=== PATIENT | female | born 2000 | race Caucasian/White ===

== ENCOUNTER 2021-04-09 07:40 | Emergency (ER) | payer MEDICAID, SELFPAY ==
--- NOTE | ~2021-04-09 | XR_ITS ---
EXAMINATION: XR finger 5th LT min 2V DATE: 04/09/2021 08:26 INDICATION: Left hand fifth digit swelling and pain. TECHNIQUE: 3 views of left hand fifth digit were obtained. COMPARISON: None. FINDINGS: There is a transverse extra-articular fracture of base of fifth distal phalanx. The distal fracture fragment demonstrates impaction and 1 mm palmar displacement. Joint spaces are normal. IMPRESSION: 1. Extra articular transverse fracture of base of fifth distal phalanx. Reviewed, dictated and finalized at location A. 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
[2021-04-09 07:55] VITALS: BP 137/82; PULSE 73; RESP 16; TEMP 37.4; O2SAT 98
--- NOTE | 2021-04-09 08:29 | ED.UPPEXIN ---
HPI - Extremity Injury (Upper) General Chief Complaint: Extremity Injury, Upper Stated Complaint: L 5TH DIGIT PAIN Time Seen by Provider: 04/09/21 08:14 Source: patient and RN notes reviewed Mode of arrival: ambulatory Limitations: no limitations History of Present Illness HPI narrative: This is a 20 year old female right hand dominant who presents for evaluation of left 5th finger pain. Patient states she fell on Friday. She noticed left shoulder pain and left 5th finger pain. Her shoulder pain has resolved but this morning her finger was throbbing so she came to ER. She has been budding taping her finger to help with pain from possible fracture. Her pain is worse with movement but she is able to move fully. She denies headache or head injury. She has not taken anything for pain. Related Data Home Medications Medication Instructions Recorded Confirmed norethindrone-e.estradiol-iron tablet 04/09/21 [Aurovela Fe 1-20 (28)] Allergies Allergy/AdvReac Type Severity Reaction Status Date / Time No Known Allergies Allergy Unverified 04/09/21 07:41 Review of Systems Review of Systems: All systems reviewed & are unremarkable except as noted in HPI and below PMFSH Past Medical History Medical History (Updated 04/09/21 @ 09:12 by Pat Diallo MD) Patient denies medical problems Surgical History Surgical History (Updated 04/09/21 @ 08:32 by Pat Diallo MD) Hx of tonsillectomy Social History Social History (Updated 04/09/21 @ 08:32 by Pat Diallo MD) Smoking status: Current every day smoker Exam Const: General: no acute distress and alert Orientation/consciousness: patient oriented x3 HENMT: Head: normocephalic and atraumatic Eyes: EOM: EOMs intact bilaterally Resp: Effort & Inspection: normal respiratory effort and no retractions Auscultation: clear to auscultation bilaterally Cardio: Rate: regular rate Rhythm: regular rhythm Heart sounds: no murmurs GI: GI Palp: Yes Soft to palpation, No Tenderness to palpation present (GI) and No Guarding due to palpation present (GI) Auscultation: normal bowel sounds Extrem: Other: FROM of fingers and shoulder. left 5th finger with mild swelling and bruising Psych: Mental Status: mental status grossly normal Affect: normal affect Course Reevaluation(s) Reevaluation #1: I Discussed with patient she has distal phalanx fracture. She was placed in metal finger splint. Date: 04/09/21 Time: 09:09 Vital Signs Vital signs: Vital Signs Temperature 99.3 F 04/09/21 07:55 Pulse Rate 73 04/09/21 07:55 Respiratory Rate 16 04/09/21 07:55 Blood Pressure 137/82 04/09/21 07:55 Pulse Oximetry 98 04/09/21 07:55 Temperature 99.3 F 04/09/21 07:55 Pulse Rate 73 04/09/21 07:55 Respiratory Rate 16 04/09/21 07:55 Blood Pressure 137/82 04/09/21 07:55 Pulse Oximetry 98 04/09/21 07:55 MDM - Extremity Injury (Upper) Imaging Data Radiologist's impression: ITS Impressions Finger X-Ray 04/09/21 08:29 IMPRESSION: 1. Extra articular transverse fracture of base of fifth distal phalanx. Discharge Plan Discharge Clinical Impression: Closed fracture of distal phalanx of left index finger Qualifiers: Encounter type: initial encounter Fracture alignment: displaced Qualified Code(s): S62.631A - Displaced fracture of distal phalanx of left index finger, initial encounter for closed fracture Patient Disposition: Home, Self-Care Condition: Stable Instructions: Antibiotic Form, Finger Fracture (ED), Splint Care (ED) Additional Instructions: Today you were found to have finger fracture. Where finger splint and follow up with your primary care physician in 2 weeks. Prescriptions: No Action norethindrone-e.estradiol-iron [Aurovela Fe 1-20 (28)] 1 mg-20 mcg (21)/75 mg (7) tablet RF: 0 Follow-up/Referrals: Wally Alfaro MD [Physician] - UNKNOWN,DOCTOR [Prim
[2021-04-09] MEDS: IBUPROFEN 600 MG TABLET PO (08:39)
== END 2021-04-09 09:23 | disposition home or self-care (01) ==
PROVIDERS: Emergency Provider General Practice
DX: S62.631A Displaced fracture of distal phalanx of left index finger, initial encounter for closed fracture (principal); F17.200 Nicotine dependence, unspecified, uncomplicated; W19.XXXA Unspecified fall, initial encounter
CPT/HCPCS: 29125; 73140; 99284; A9270

== ENCOUNTER 2022-03-13 16:31 | Emergency (ER) | payer BC, SELFPAY ==
--- NOTE | ~2022-03-13 | CT_ITS ---
EXAMINATION: CT abdomen pelvis w con DATE: 03/13/2022 18:06 INDICATION: upper abd pain, RUQ pain TECHNIQUE: Computed tomography (CT) of the abdomen and pelvis was performed with 100 mL Omnipaque-350 intravenous contrast. Automated exposure control and iterative reconstruction technique were employe d. The dose-length product was 225.67 mGy-cm. COMPARISON: None. FINDINGS: Lower thorax: Unremarkable Liver: Normal. Biliary/Gallbladder: Gallbladder is normal. No bile duct dilation. Pancreas: No mass or duct dilation. Spleen: Normal. Adrenals:No mass. Kidneys: No mass, stone, or hydronephrosis. GI tract: Distal esophageal and antral wall edema. No small or large bowel dilation. Appendix incompl etely visualized, visualized portions are normal, no right lower quadrant inflammatory change. Mesentery/Peritoneum: No ascites, mass, or free air. Retroperitoneum: No mass. Pelvis: Mild bladder wall thickening, otherwise the pelvic organs are within normal limits. Multiple pelvic phleboliths. Distal ureters incompletely visualized. No definite calcification in the expected pathway of the distal ureters. Soft Tissues: Soft tissues and body wall unremarkable. Bones: No acute osseous finding. IMPRESSION: Esophagitis/gastritis. Bladder wall thickening as can be seen with cystitis in the appropriate clinic al context. Reviewed, dictated and finalized at location K. IMPRESSION: Esophagitis/gastritis. Bladder wall thickening as can be seen with cystitis in the appropriate clinical context.
[2022-03-13 16:34] VITALS: BP 142/81; PULSE 97; RESP 20; TEMP 36.6; O2SAT 100
[2022-03-13 17:14] LABS: Basophils Absolute Auto 0.1 K/mm3 (0.0-0.1); Basophils Percent Auto 0.8 % (0.2-1.2); Eosinophils Absolute Auto 0.1 K/mm3 (0-0.3); Eosinophils Percent Auto 0.8 % (0-4.4); Hematocrit 38.1 % (37.0-47.0); Hemoglobin 12.8 g/dL (12.0-15.0); Immature Granulocyte Absolute 0.03 K/mm3 (0.00-0.031); Immature Granulocyte Percent A 0.3 % (0-0.5); Lymphocytes Absolute Auto 1.78 K/mm3 (0.9-3.2); Lymphocytes Percent Auto 19.6 % (18.3-44.2); Mean Corpuscular HGB Conc 33.6 g/dl (32-36); Mean Corpuscular Volume 98.2 fl (80-100); Mean Platelet Volume 10.5 fl (7.4-10.4); Monocytes Absolute Auto 0.9 K/mm3 (0.1-0.6); Monocytes Percent Auto 9.7 % (2.6-8.5); Neutrophils Absolute Auto 6.3 K/mm3 (1.3-6.7); Neutrophils Percent Auto 68.8 % (45.5-73.1); Platelet Count Result 226 k/mm3 (150-375); Red Blood Count 3.88 M/mm3 (4.2-5.4); Red Cell Distribution Width 12.1 % (11.5-14.5); White Blood Count 9.1 K/mm3 (4.5-10.0)
[2022-03-13 17:28] LABS: Alanine Aminotransferase 17 U/L (6-35); Albumin Level 4.5 g/dL (3.5-5.1); Alkaline Phosphatase 54 U/L (38-126); Anion Gap 7 mmol/L (8-16); Aspartate Amino Transferase 27 U/L (14-36); Bilirubin,Total 0.3 mg/dL (0.2-1.3); Blood Urea Nitrogen 9 mg/dL (7-17); Calcium 9.3 mg/dL (8.4-10.2); Carbon Dioxide 26 mmol/L (22-30); Chloride 103 mmol/L (98-107); Estimated CRCL calculation 93 ml/min; Estimated Glomerular Filt Rate > 60; Glucose 91 mg/dL (65-110); Lipase 42 U/L (23-300); Sodium 136 mmol/L (137-145)
--- NOTE | 2022-03-13 17:29 | ED.ABDPAIN ---
HPI - Abdominal Pain General Chief Complaint: Abdominal Pain Stated Complaint: abd pain Time Seen by Provider: 03/13/22 16:51 History of Present Illness HPI narrative: 21-year-old female presents emergency room for evaluation of sudden onset of upper abdominal pain. Patient states this morning she woke up with upper abdominal pain that radiated into her back. Patient describes the pain as a squeezing sensation. Denies nausea, vomiting diarrhea or constipation. Patient states she took Pepto this morning and her symptoms have resolved. States this afternoon her symptoms returned. Reports social alcohol use. Reports last menstrual period was 4 weeks ago. No concerns over or STIs. Denies dysuria. Denies fevers. Related Data Home Medications Medication Instructions Recorded Confirmed quetiapine 50 mg tablet 50 mg PO QHS 11/05/21 11/05/21 Allergies Allergy/AdvReac Type Severity Reaction Status Date / Time No Known Allergies Allergy Unverified 03/13/22 17:43 Review of Systems Review of Systems: CONSTITUTIONAL: Denies fever, chills, or sweats. EYES: Denies visual changes, redness, or discharge. ENT: Denies rhinorrhea, congestion, sore throat, or otalgia. CARDIOVASCULAR: Denies chest pain, palpitations, or edema. RESPIRATORY: Denies cough or dyspnea. GASTROINTESTINAL: Reports abdominal pain, denies nausea, vomiting, or diarrhea. GENITOURINARY: Denies dysuria or hematuria. SKIN: Denies rash or itching. MUSCULOSKELETAL: Denies back pain, joint pain, or myalgia. NEUROLOGIC: Denies headache, numbness, dizziness, or weakness. PSYCHIATRIC: Denies anxiety or depression. 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 HEAD: Normocephalic, atraumatic. EYES: Conjunctivae normal, PERRLA and EOMI. CHEST: Clear to auscultation. No respiratory distress. No wheezes rales or rhonchi. No tenderness. HEART: Regular rate and rhythm. No murmur heard. Normal peripheral pulses. ABDOMEN: Soft, upper abdominal and periumbilical tenderness nondistended, normal active bowel sounds. BACK: No CVA tenderness EXTREMITIES: Normal range of motion. No edema. No clubbing or cyanosis SKIN: Warm, dry, no rash. No noted wounds NEURO: No focal deficits. Alert and oriented x3. MAEW. CN's II-XI intact bilaterally, normal gait PSYCH: Cooperative. Normal mood and affect. Course Vital Signs Vital signs: Vital Signs Temperature 36.6 C 03/13/22 16:34 Pulse Rate 97 03/13/22 16:34 Respiratory Rate 20 03/13/22 16:34 Blood Pressure 142/81 H 03/13/22 16:34 Pulse Oximetry 100 03/13/22 16:34 Oxygen Delivery Room Air 03/13/22 16:34 Temperature 36.6 C 03/13/22 16:34 Pulse Rate 97 03/13/22 16:34 Respiratory Rate 20 03/13/22 16:34 Blood Pressure 142/81 H 03/13/22 16:34 Pulse Oximetry 100 03/13/22 16:34 Oxygen Delivery Room Air 03/13/22 16:34 MDM - Abdominal Pain Lab Data Result diagrams: 03/13/22 17:09 03/13/22 17:09 Labs: Lab Results 03/13/22 03/13/2203/02
[2022-03-13] MEDS: SODIUM CHLORIDE 0.9% IV 1,000 ML 999 ML IV CONT (17:50)
[2022-03-13] MEDS: DICYCLOMINE HCL INJ 20 MG/2 ML VIAL IM (17:50)
[2022-03-13 18:01] LABS: Add Urine Microscopic? YES; Appearance Urine Cloudy (Clear); Bacteria Urine Trace /hpf; Bilirubin Urine Negative (Negative); Blood Urine 1+ (Negative); Color Urine Yellow (Yellow); Glucose Urine UA Negative (Negative); Ketones Urine Negative (Negative); Leukocyte Esterase Ur 3+ LEU/UL (Negative); Mucus Urine Rare /lpf; Nitrate Urine Negative (Negative); Protein Urine Negative (Negative); Specific Grav Ur 1.012 (1.001-1.035); Squamous Epithelial Cell Urine Many /hpf (Few); Urobilinogen Urine Negative mg/dL (<2.0)
[2022-03-13 18:45] VITALS: BP 125/75; PULSE 80; RESP 14; O2SAT 99
[2022-03-13] MEDS: BELLADONNA ALK/PHENOB ELIX 10 ML, MAG HYDROX/ALUMINUM HYD/SIMETH 30 ML, LIDOCAINE HCL 2... PO (18:58)
== END 2022-03-13 18:45 | disposition home or self-care (01) ==
PROVIDERS: General Practice; Emergency Provider Nurse Practitioner Family
DX: K29.70 Gastritis, unspecified, without bleeding (principal); F31.9 Bipolar disorder, unspecified; F17.290 Nicotine dependence, other tobacco product, uncomplicated; R93.41 Abnormal radiologic findings on diagnostic imaging of renal pelvis, ureter, or bladder
CPT/HCPCS: 36415; 74177; 80053; 81001; 81025; 83690; 85025; 87086; 87088; 96360; 96372; 99284; A9270; J0500; J7030; Q9967

== ENCOUNTER 2022-04-19 14:23 | Emergency (ER) | payer BC, SELFPAY ==
[2022-04-19 14:39] VITALS: BP 128/79; PULSE 88; RESP 24; TEMP 36.9; O2SAT 100
--- NOTE | 2022-04-19 15:33 | ED.WOUNDLAC ---
HPI - Wound/Laceration General Chief Complaint: Wound/Laceration Stated Complaint: Cut Rt Hand Time Seen by Provider: 04/19/22 15:34 Source: patient Mode of arrival: ambulatory Limitations: no limitations History of Present Illness HPI narrative: 22 year female presents for complaint of laceration to right hand (2nd MCP). Injury occurred 5 days ago while carving a pumpkin using a pocket knife after drinking alcohol. She cleansed the site and applied liquid Band-Aid. She has continued to apply liquid Band-Aid over the last few days. She endorses decreased range of motion over the knuckle today and mild redness and swelling. Related Data Home Medications Medication Instructions Recorded Confirmed norethindrone 1 mg-ethinyl 1 tablet PO DAILY 04/19/22 04/19/22 estradiol 20 mcg (21)-iron 75 mg (7) tablet (Blisovi Fe 06/21 (28)) quetiapine 100 mg tablet 100 mg PO HS 04/19/22 04/19/22 Allergies Allergy/AdvReac Type Severity Reaction Status Date / Time No Known Allergies Allergy Verified 04/19/22 15:32 Review of Systems Review of Systems: CONSTITUTIONAL: Denies body aches, fever, chills, or sweats. CARDIOVASCULAR: Denies chest pain, palpitations, or edema. RESPIRATORY: Denies cough or dyspnea. SKIN: per HPI MUSCULOSKELETAL: Denies back pain, joint pain, or myalgia. NEUROLOGIC: Denies headache, numbness, tingling, or weakness. 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 Please see nursing chart for further information. There is no relevant family history pertinent to the presenting complaint Exam Narrative: GENERAL: Well-appearing ENT: Mucous membranes moist. Oropharynx without edema, erythema or lesions. NECK: Supple. No lymphadenopathy CHEST: Clear to auscultation. HEART: Regular rate and rhythm. SKIN: Warm, dry. Right hand 2nd MCP with approx 1.5 cm linear healing laceration with mild surrounding erythema and mild swelling. Decreased ROM at MCP, unable to close fist. Nontender, no active drainage, induration or fluctuance NEURO: Alert and oriented x3. Course Course Emergency Course: Patient is aware of diagnosis, understands and agrees to treatment plan. Anticipatory guidance given. Patient agrees to follow-up as directed and is aware of reasons to seek care at the emergency department. Portions of this record may have been created with voice recognition software Level of Care: Express Care Visit Vital Signs Vital signs: Vital Signs Temperature 98.5 F 04/19/22 14:39 Pulse Rate 88 04/19/22 14:39 Respiratory Rate 24 H 04/19/22 14:39 Blood Pressure 128/79 04/19/22 14:39 Pulse Oximetry 100 04/19/22 14:39 Oxygen Delivery Room Air 04/19/22 14:39 Temperature 98.5 F 04/19/22 14:39 Pulse Rate 88 04/19/22 14:39 Respiratory Rate 24 H 04/19/22 14:39 Blood Pressure 128/79 04/19/22 14:39 Pulse Oximetry 100 04/19/22 14:39 Oxygen Delivery Room Air 04/19/22 14:39 Reviewed MDM - Wound/Laceration
== END 2022-04-19 15:47 | disposition home or self-care (01) ==
PROVIDERS: Emergency Provider Nurse Practitioner Family; PCP Family Medicine
DX: S61.411A Laceration without foreign body of right hand, initial encounter (principal); W26.0XXA Contact with knife, initial encounter; F17.290 Nicotine dependence, other tobacco product, uncomplicated; F12.90 Cannabis use, unspecified, uncomplicated; F31.9 Bipolar disorder, unspecified
CPT/HCPCS: 99213; G0463

== ENCOUNTER 2024-10-18 15:36 | Outpatient (RCR) | payer BC, SELFPAY ==
[2024-10-18 16:00] VITALS: BP 113/57; PULSE 84
[2024-10-18 16:15] VITALS: BP 110/57; PULSE 76
[2024-10-18 16:16] VITALS: BP 113/57; PULSE 85
== END 2025-01-16 23:59 | disposition home or self-care (01) ==
LOC: ANHOBOP 15:36
PROVIDERS: PCP Family Medicine; Visit Provider Obstetrics & Gynecology
DX: O36.8930 Maternal care for other specified fetal problems, third trimester, not applicable or unspecified (principal); Z3A.27 27 weeks gestation of pregnancy
CPT/HCPCS: 59025

== ENCOUNTER 2024-11-17 10:45 | Observation (INO) | payer SELFPAY ==
[2024-11-17] VITALS (122 sets, daily range): BP systolic 111–122; BP diastolic 63–78; PULSE 82–130; RESP 18–20; TEMP 36.9–37.2; O2SAT 89–100; BMI 25.7
--- NOTE | ~2024-11-17 | US_ITS ---
EXAM EXAMINATION: US OB limited DATE: 11/17/2024 18:34 CDT INDICATION: Placenta/cervix check COMPARISON: 07/02/2024 and 06/01/2024 TECHNIQUE: Real-time transabdominal obstetric ultrasound. FINDINGS: There is a single intrauterine gestation in vertex presentation. The placenta is anterior The cervix measures 2.37 cm in length on the submitted images. cardiac activity and movement is noted with a heart rate of 146 beats per minute. Prominent vasculature is seen in cross-section, on transverse view of the anterior placenta. IMPRESSION: Single intrauterine gestation in vertex presentation with cardiac activity identified. The cervix measures 2.37 cm in length. Reviewed, dictated and finalized at location A. IMPRESSION: Single intrauterine gestation in vertex presentation with cardiac activit y identified. The cervix measures 2.37 cm in length.
--- NOTE | 2024-11-17 11:40 | PM.OBTRLD ---
OB - Triage/Final Diagnosis Visit Information Date of evaluation: 11/17/24 Reason for evaluation: threatened labor Comments/Additional reasons for admission: I have assessed the risk for this patient, Tati Hong, and determined that she would benefit from observation care. Evaluation Vital signs: Vital Signs - 24 hr 11/17/24 11:09 11/17/24 11:10 11/17/24 11:14 Pulse Rate 88 Blood Pressure 121/66 Pulse Oximetry 99 100 11/17/24 11:15 11/17/24 11:19 11/17/24 11:24 Pulse Rate 96 Blood Pressure 118/78 Pulse Oximetry 100 100 11/17/24 11:29 11/17/24 11:30 11/17/24 11:34 Pulse Rate 84 Blood Pressure 115/63 Pulse Oximetry 98 98 11/17/24 11:39 Pulse Rate Blood Pressure Pulse Oximetry 100
[2024-11-17] MEDS: TERBUTALINE SULFATE 1 MG/ML VIAL 0.25 MG SUB-Q ×3 (11:49→19:22)
--- OUTSIDE RECORDS SUMMARY | 2024-11-17 12:39 | XMS_ITS | Clinical Summary ---
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 Gender Identity Not on file Sexual Orientation Not on file Plan of Treatment Health Maintenance Due Date Last Done Comments Cervical Cancer Screening 1998 Depression Screening 1998 Hepatitis C Screening 1998 Regular Well Visit/Exam 18-64 2016 HPV Vaccines (2 - 3-dose series) 11/05/2021 10/08/2021 Covid-19 Vaccine ( season) 2024 06/18/2021, 09/24/2020, 09/02/2020 Influenza Vaccine (Season Ended) 2025 02/27/2022, 06/18/2021, 04/03/2020 DTaP/Tdap/Td Vaccine (7 - Td or Tdap) 10/09/2031 10/08/2021, 12/20/2003, 03/12/2000, Additional history exists Hepatitis B Screening Completed 07/31/1999 , 07/31/1999, 1998, Additional history exists Varicella Vaccines Completed 10/08/2021, 07/31/1999 Pneumococcal vaccine <65 Aged Out No longer eligible based on patient's age to complete this topic Care Teams Baling Press Operator Relationship Specialty Start Date End Date Socrates Burgess MD [address] [place] [address] PCP - General Family Medicine 10/01/22
--- OUTSIDE RECORDS SUMMARY | 2024-11-17 12:39 | XMS_ITS | Data Portability ---
Author Organization [place] - [facility] [employer], Main Office Address [address] [place] [address] Care Team Providers [employer] Program Director Name Role Phone LILIAM SOCRATES Primary Care Provider Assessment Encounter Date Assessment Date Assessment LastModified by Organization Details LastModified Time 09/10/2022 09/10/2022 22 yo F with - WELL ADULT VISIT - BIPOLAR DEPRESSION - MOOD DISORDER - VAPING - H/O ANXIETY (Around 12 yrs of age) Annual labs: 10/03/21. Annual labs: 04/03/20. D/w pt in detail about her findings, recent labs and further plan of care. Will do routine labs. Pt declined for cxr. Meds as directed. Diet and exercise explained in detail. Safe sex education given. Currently vaping about 1-2 pods per day. Explained about different options to quit. Cont f/u with Psych at [facility] as per schedule. Cont f/u with Gyne at [place] as per schedule. HM: WWE - 11/21, normal as per pt. Cont f/u with Gyne as per schedule. Flu - 02/27/22. Tdap, Gardasil - At . F/u in 2-3 weeks. Annual labs in 09/23. [email or web address] Not available 09/10/2022 11:48:36 10/01/2022 10/01/2022 22 yo F with - BIPOLAR DEPRESSION - MOOD DISORDER - VAPING - H/O ANXIETY (Around 12 yrs of age) Annual labs: 09/24/22. Annual labs: 10/03/21. Annual labs: 04/03/20. D/w pt in detail about her findings, recent labs and further plan of care. Meds as directed. Diet and exercise explained in detail. Safe sex education given. Currently vaping about 1-2 pods per day. Explained about different options to quit. Cont f/u with Psych at [facility] as per schedule. Cont f/u with Gyne at [place] as per schedule. HM: WWE - 11/21, normal as per pt. Cont f/u with Gyne as per schedule. Flu - 02/27/22. Tdap, Gardasil - At HD. F/u in 3-6 months. Annual labs in 09/23. [email or web address] Not available 10/01/2022 11:40:27 Plan of Treatment Reminders Order Date Submit Date Provider Last Modified By Organization Details Last Modified Time Details Appointments None recorded. Lab vitamin D, 25-hydroxy, total, serum [address] (Lab), [address] [place], [address], 3 09:01:39 CBC w/ auto diff 2022 023 [facility] (Lab), [address] [place], [address], 3 20:15:42 CMP, serum or plasma 2022 023 [facility] (Lab), [address] [place], [address], 3 20:58:06 lipid panel, serum 2022 023 [facility] (Lab), [address] [place], [address], 3 12:51:27 TSH, serum, reflex free T4 [address] (Lab), [address] [place], [address], 3 09:00:28 urinalysis complete, reflex culture [address] (Lab), [address] [place], [address], 3 09:00:50 Referral None recorded. Procedures None recorded. Surgeries None recorded. Imaging None recorded. Medication Orders None recorded. Patient TargetsNo targets recorded. Patient InstructionsNo instructions recorded. Reason for Referral None Reported. Results Created Date Observation Date Name Description Value Unit Range Abnormal Flag Note LastModifiedBy Organization Detail LastModifiedTime 10/04/19 22 10/03/2021 TSH W/REF RUBA FT4 TSH with reflex free T4 1.290 uIU/m L 0.465- 4.680 Not Available [facility] (Lab) [address] [place], [address], 10/03/2021 20:29:34 10/04/19 22 10/03/2021 VITAM IN D 25-HY DROXY vd25oh 35.2 NG/mL 30-100 Vitam in D Statu s: Defic ient: <20 ng/mL Insuf ficie nt: 20-29 ng/mL Suffi cient : 30-10 0 ng/mL Not Available [facility] (Lab) [address] [place], [address], 10/03/2021 20:22:22 10/04/19 22 10/03/2021 URINA LYSIS COMPL ETE/I RIS W/RFX color yellow Not Available [facility] (Lab) [address] [place], [address], 10/03/2021 20:05:18 10/04/19 22 10/03/2021 URINA LYSIS COMPL ETE/I RIS W/RFX appear clear Not Available [facility] (Lab) [address] [place], [address], 10/03/2021 20:05:18 10/04/19 22 10/03/2021 URINA LYSIS COMPL ETE/I RIS W/RFX specific gravity 1.021 1.001- 1.030 Not Available [facility] (Lab) [address] [place], [address], 10/03/2021 20:05:18 10/04/19 22 10/03/2021 URINA LYSIS COMPL ETE/I RIS W/RFX pH 7.0 pH_un its 5.0-9. 0 Not Available [facility] (Lab) [address] [place], [address], 10/03/2021 20:05:18 10/04/19 22 10/03/2021 URINA LYSIS COMPL ETE/I RIS W/RFX leukocytes negati ve jennifer/u L negati ve- Not Available [facility] (Lab) [address] [place], [address], 10/03/2021 20:05:18 10/04/19 22 10/03/2021 URINA LYSIS COMPL ETE/I RIS W/RFX nitrite negati ve negati ve- Not Available [facility] (Lab) [address] [place], [address], 10/03/2021 20:05:18 10/04/19 22 10/03/2021 URINA LYSIS COMPL ETE/I RIS W/RFX protein 20 mg/dL negati ve- abnormal Not Available [facility] (Lab) [address] [place], [address], 10/03/2021 20:05:18 10/04/19 22 10/03/2021 URINA LYSIS COMPL ETE/I RIS W/RFX glucose normal mg/dL normal - Not Available [facility] (Lab) [address] [place], [address], 10/03/2021 20:05:18 10/04/19 22 10/03/2021 URINA LYSIS COMPL ETE/I RIS W/RFX ketones negati ve mg/dL negati ve- Not Available [facility] (Lab) [address] [place], [address], 10/03/2021 20:05:18 05/04/20 22 10/03/2021 URINA LYSIS COMPL ETE/I RIS W/RFX urobilinogen normal mg/dL normal - Not Available [facility] (Lab) [address] [place], [address], 10/03/2021 20:05:18 10/04/19 22 10/03/2021 URINA LYSIS COMPL ETE/I RIS W/RFX bilirubin negati ve mg/dL negati ve- Not Available [facility] (Lab) [address] [place], [address], 10/03/2021 20:05:18 10/04/19 22 10/03/2021 URINA LYSIS COMPL ETE/I RIS W/RFX blood negati ve mg/dL negati ve- Not Available [facility] (Lab) [address] [place], [address], 10/03/2021 20:05:18 10/04/19 22 10/03/2021 URINA LYSIS COMPL ETE/I RIS W/RFX white blood cells 0-8 /i??h pfi?? 0-8 Not Available [facility] (Lab) [address] [place], [address], 10/03/2021 20:05:18 10/04/19 22 10/03/2021 URINA LYSIS COMPL ETE/I RIS W/RFX red blood cells 0-4 /i??h pfi?? 0-4 Not Available [facility] (Lab) [address] [place], [address], 10/03/2021 20:05:18 10/04/19 22 10/03/2021 URINA LYSIS COMPL ETE/I RIS W/RFX bacteria none Not Available [facility] (Lab) [address] [place], [address], 10/03/2021 20:05:18 10/04/19 22 10/03/2021 URINA LYSIS COMPL ETE/I RIS W/RFX mucous few /i??l pfi?? abnormal Not Available [facility] (Lab) [address] [place], [address], 10/03/2021 20:05:18 10/04/19 22 10/03/2021 URINA LYSIS COMPL ETE/I RIS W/RFX squamous epithelial packed field /i??l pfi?? abnormal Not Available [facility] (Lab) [address] [place], [address], 10/03/2021 20:05:18 10/04/19 22 10/03/2021 URINA LYSIS COMPL ETE/I RIS W/RFX renal epithelial occasi onal /i??l pfi?? abnormal Not Available [facility] (Lab) [address] [place], [address], 10/03/2021 20:05:18 10/04/19 22 10/03/2021 LIPID PANEL cholesterol 194 mg/dL 140-19 9 NIH JORGE NSUS RECOM MENDA TION FOR MEAGAN STERO L: ADULT CHILD LOW RISK: <200 <170 BORDE RLINE : <200- 239 ----- HIGH RISK: >240 >200 Not Available [facility] (Lab) [address] [place], [address], 10/03/2021 19:57:48 10/04/19 22 10/03/2021 LIPID PANEL triglyceride s 77 mg/dL 0-150 NIH JORGE NSUS REPOR T RECOM MENDA TION FOR TRIGL YCERI EMMANUEL: ADULT CHILD LOW RISK: <150 ----- BODER LINE: 150-1 99 ----- HIGH RISK: >200 ----- Not Available [facility] (Lab) [address] [place], [address], 10/03/2021 19:57:48 10/04/19 22 10/03/2021 LIPID PANEL HDL cholesterol 77 mg/dL 40- Not Available [facility] (Lab) [address] [facility] [place], [address], 10/03/2021 19:57:48 10/04/19 22 10/03/2021 LIPID PANEL LDL cholesterol, calculated 102 mg/dL 0-130 NIH JORGE NSUS REPOR T RECOM MENDA TIONS FOR LDL: ADULT CHILD LOW RISK <130 <110 (OPTI MAL LDL) <100 ----- BORDE RLINE : 130-1 59 ----- HIGH RISK: >160 >130 A TRIGL YCERI DE RESUL T >400 INVAL IDATE S THE CALCU LATIO N FOR LDL FRACT IONAT ION - THE LDL RESUL T WILL NOT BE REPOR MARY CARMEN. Not Available [facility] (Lab) [address] [place], [address], 10/03/2021 19:57:48 10/04/19 22 10/03/2021 COMPR EHENS NOVA METAB OLIC PANEL sodium 138 mmol/ L 137-14 5 Not Available [facility] (Lab) [address] [place], [address], 10/03/2021 19:57:42 10/04/19 22 10/03/2021 COMPR EHENS NOVA METAB OLIC PANEL potassium 4.2 mmol/ L 3.5-5. 1 Not Available [facility] (Lab) [address] [place], [address], 10/03/2021 19:57:42 10/04/19 22 10/03/2021 COMPR EHENS NOVA METAB OLIC PANEL chloride 104 mmol/ L 98-107 Not Available [facility] (Lab) [address] [place], [address], 10/03/2021 19:57:42 10/04/19 22 10/03/2021 COMPR EHENS NOVA METAB OLIC PANEL carbon dioxide 28 mmol/ L 22-30 Not Available [facility] (Lab) [address] [place], [address], 10/03/2021 19:57:42 10/04/19 22 10/03/2021 COMPR EHENS NOVA METAB OLIC PANEL anion gap 10.2 mmol/ L 14-22 low Not Available [facility] (Lab) [address] [place], [address], 10/03/2021 19:57:42 10/04/19 22 10/03/2021 COMPR EHENS NOVA METAB OLIC PANEL glucose 83 mg/dL 70-99 Not Available [facility] (Lab) [address] [place], [address], 10/03/2021 19:57:42 10/04/19 22 10/03/2021 COMPR EHENS NOVA METAB OLIC PANEL BUN 10 mg/dL 8-19 Not Available [facility] (Lab) [address] [place], [address], 10/03/2021 19:57:42 10/04/19 22 10/03/2021 COMPR EHENS NOVA METAB OLIC PANEL creatinine 0.68 mg/dL 0.66-1 .25 Not Available [facility] (Lab) [address] [place], [address], 10/03/2021 19:57:42 10/04/19 22 10/03/2021 COMPR EHENS NOVA METAB OLIC PANEL GFR >60 Refer ence Range : [place] GFR Healt hy Adult : >60 mL/mi n/1.7 3 m2 Chron ic Kidne y Disea se: 15-60 mL/mi n/1.7 3 m2 Kidne y Failu re: <15/m L/min /1.73 m2 www.n iddk. nih.g ov The MDRD study equat ion has not been valid ated in child perla <18 years of age; pregn ant women ; the elder ly >85 years of age; or in some racia l or ethni c subgr oups, such as Hispa nics. Outsi de the valid ated zelda eters , estim ated GFR is less accur ate, requi ring clini kimberly judgm ent on a case- by-ca se basis . Clini kimberly inter preta tion for other races and ages must be made by the clini spencer. The MDRD study equat ion has not been valid ated for the evalu ation of serum creat inine relat ed to nutri francia l statu s or medic ation usage . For perso ns <18 years of age, a pedia tric GFR calcu lator is avail able on the [facility] websi te: https ://ww w.kid artur.o rg/pr ofess ional s/kdo qi/gf r_cal culat or Not Available [facility] (Lab) [address] [place], [address], 10/03/2021 19:57:42 10/04/19 22 10/03/2021 COMPR EHENS NOVA METAB OLIC PANEL alkaline phosphatase 63 U/L 38-126 Not Available [facility] (Lab) [address] [place], [address], 10/03/2021 19:57:42 10/04/19 22 10/03/2021 COMPR EHENS NOVA METAB OLIC PANEL alanine aminotransfe rase 16 U/L 0-35 Not Available [facility] (Lab) [address] [place], [address], 10/03/2021 19:57:42 10/04/19 22 10/03/2021 COMPR EHENS NOVA METAB OLIC PANEL aspartate aminotransfe rase 25 U/L 15-37 Not Available [facility] (Lab) [address] [place], [address], 10/03/2021 19:57:42 10/04/19 22 10/03/2021 COMPR EHENS NOVA METAB OLIC PANEL bilirubin, total 0.40 mg/dL 0.20-1 .30 Not Available [facility] (Lab) [address] [place], [address], 10/03/2021 19:57:42 10/04/19 22 10/03/2021 COMPR EHENS NOVA METAB OLIC PANEL calcium 9.7 mg/dL 8.4-10 .2 Not Available [facility] (Lab) [address] [place], [address], 10/03/2021 19:57:42 10/04/19 22 10/03/2021 COMPR EHENS NOVA METAB OLIC PANEL total protein 7.8 g/dL 6.3-8. 2 Not Available [facility] (Lab) [address] [place], [address], 10/03/2021 19:57:42 10/04/19 22 10/03/2021 COMPR EHENS NOVA METAB OLIC PANEL albumin 4.4 g/dL 3.4-5. 0 Not Available [facility] (Lab) [address] [place], [address], 10/03/2021 19:57:42 10/04/19 22 10/03/2021 COMPR EHENS NOVA METAB OLIC PANEL globulin 3.4 g/dL 2.6-4. 2 Not Available [facility] (Lab) [address] [place], [address], 10/03/2021 19:57:42 10/04/19 22 10/03/2021 COMPR EHENS NOVA METAB OLIC PANEL A/G ratio 1.3 ratio 1.0-2. 0 Not Available [facility] (Lab) [address] [place], [address], 10/03/2021 19:57:42 10/04/19 22 10/03/2021 CBC/C OMPLE TE BLD COUNT W/DIF F white blood cells 6.3 x10'3 /uL 4.2-10 .8 Not Available [facility] (Lab) [address] [place], [address], 10/03/2021 19:46:40 10/04/19 22 10/03/2021 CBC/C OMPLE TE BLD COUNT W/DIF F red blood cells 4.09 x10'6 /uL 3.80-5 .20 Not Available [facility] (Lab) [address] [place], [address], 10/03/2021 19:46:40 10/04/19 22 10/03/2021 CBC/C OMPLE TE BLD COUNT W/DIF F hemoglobin 13.4 g/dL 12.0-1 5.6 Not Available [facility] (Lab) [address] [place], [address], 10/03/2021 19:46:40 10/04/19 22 10/03/2021 CBC/C OMPLE TE BLD COUNT W/DIF F hematocrit 40.4 % 35.7-4 5.7 Not Available [facility] (Lab) [address] [place], [address], 10/03/2021 19:46:40 10/04/19 22 10/03/2021 CBC/C OMPLE TE BLD COUNT W/DIF F mean red cell volume 98.8 fL 82.0-9 9.0 Not Available [facility] (Lab) [address] [place], [address], 10/03/2021 19:46:40 10/04/19 22 10/03/2021 CBC/C OMPLE TE BLD COUNT W/DIF F mean red cell hemoglobin 32.8 pg 27.0-3 3.0 Not Available [facility] (Lab) [address] [place], [address], 10/03/2021 19:46:40 10/04/19 22 10/03/2021 CBC/C OMPLE TE BLD COUNT W/DIF F mean RBC HGB concentratio n 33.2 g/dL 31.0-3 6.0 Not Available [facility] (Lab) [address] [place], [address], 10/03/2021 19:46:40 10/04/19 22 10/03/2021 CBC/C OMPLE TE BLD COUNT W/DIF F red cell distribution width 12.1 % 11.8-1 5.5 Not Available [facility] (Lab) [address] [place], [address], 10/03/2021 19:46:40 10/04/19 22 10/03/2021 CBC/C OMPLE TE BLD COUNT W/DIF F platelets 229 x10'3 /uL 150-40 0 Not Available [facility] (Lab) [address] [place], [address], 10/03/2021 19:46:40 10/04/19 22 10/03/2021 CBC/C OMPLE TE BLD COUNT W/DIF F mean platelet volume 11.5 fL 9.0-12 .4 Not Available [facility] (Lab) [address] [place], [address], 10/03/2021 19:46:40 10/04/19 22 10/03/2021 CBC/C OMPLE TE BLD COUNT W/DIF F neutrophils 61.5 % 39.0-7 2.0 Not Available [facility] (Lab) [address] [place], [address], 10/03/2021 19:46:40 10/04/19 22 10/03/2021 CBC/C OMPLE TE BLD COUNT W/DIF F lymphocytes 26.8 % 16.0-4 7.0 Not Available [facility] (Lab) [address] [place], [address], 10/03/2021 19:46:40 10/04/19 22 10/03/2021 CBC/C OMPLE TE BLD COUNT W/DIF F monocytes 9.1 % 5.0-12 .0 Not Available [facility] (Lab) [address] [place], [address], 10/03/2021 19:46:40 10/04/19 22 10/03/2021 CBC/C OMPLE TE BLD COUNT W/DIF F eosinophils 1.6 % 1.0-7. 0 Not Available [facility] (Lab) [address] [place], [address], 10/03/2021 19:46:40 10/04/19 22 10/03/2021 CBC/C OMPLE TE BLD COUNT W/DIF F basophils 0.8 % 0.0-2. 0 Not Available [facility] (Lab) [address] [place], [address], 10/03/2021 19:46:40 10/04/19 22 10/03/2021 CBC/C OMPLE TE BLD COUNT W/DIF F immature granulocytes 0.2 % 0.00-0 .50 Not Available [facility] (Lab) [address] [place], [address], 10/03/2021 19:46:40 10/04/19 22 10/03/2021 CBC/C OMPLE TE BLD COUNT W/DIF F neutrophils, absolute count 3.87 x10'3 /uL 1.5-8. 0 Not Available [facility] (Lab) [address] [place], [address], 10/03/2021 19:46:40 10/04/19 22 10/03/2021 CBC/C OMPLE TE BLD COUNT W/DIF F lymphocytes, absolute count 1.68 x10'3 /uL 1.07-3 .43 Not Available [facility] (Lab) [address] [place], [address], 10/03/2021 19:46:40 10/04/19 22 10/03/2021 CBC/C OMPLE TE BLD COUNT W/DIF F monocytes, absolute count 0.57 x10'3 /uL 0.29-0 .99 Not Available [facility] (Lab) [address] [place], [address], 10/03/2021 19:46:40 10/04/19 22 10/03/2021 CBC/C OMPLE TE BLD COUNT W/DIF F eosinophils, absolute count 0.10 x10'3 /uL 0.02-0 .53 Not Available [facility] (Lab) [address] [place], [address], 10/03/2021 19:46:40 10/04/19 22 10/03/2021 CBC/C OMPLE TE BLD COUNT W/DIF F basophils, absolute count 0.05 x10'3 /uL 0.01-0 .08 Not Available [facility] (Lab) [address] [place], [address], 10/03/2021 19:46:40 10/04/19 22 10/03/2021 CBC/C OMPLE TE BLD COUNT W/DIF F immature granulocytes ,absolute 0.01 x10'3 /uL 0.00-0 .05 Not Available [facility] (Lab) [address] [place], [address], 10/03/2021 19:46:40 10/04/19 22 10/03/2021 CBC/C OMPLE TE BLD COUNT W/DIF F nucleated red blood cells 0.0 % -0 Not Available [facility] (Lab) [address] [place], [address], 10/03/2021 19:46:40 10/04/19 22 10/03/2021 CBC/C OMPLE TE BLD COUNT W/DIF F NRBC# 0.00 x10'3 /uL Not Available [facility] (Lab) [address] [place], [address], 10/03/2021 19:46:40 09/25/19 23 09/24/2022 CBC/C OMPLE TE BLD COUNT W/DIF F white blood cells 6.5 x10'3 /uL 4.2-10 .8 Not Available [facility] (Lab) [address] [place], [address], 09/24/2022 20:15:42 09/25/19 23 09/24/2022 CBC/C OMPLE TE BLD COUNT W/DIF F red blood cells 4.05 x10'6 /uL 3.80-5 .20 Not Available [facility] (Lab) [address] [place], [address], 09/24/2022 20:15:42 09/25/19 23 09/24/2022 CBC/C OMPLE TE BLD COUNT W/DIF F hemoglobin 13.2 g/dL 12.0-1 5.6 Not Available [facility] (Lab) [address] [place], [address], 09/24/2022 20:15:42 09/25/19 23 09/24/2022 CBC/C OMPLE TE BLD COUNT W/DIF F hematocrit 39.9 % 35.7-4 5.7 Not Available [facility] (Lab) [address] [place], [address], 09/24/2022 20:15:42 09/25/19 23 09/24/2022 CBC/C OMPLE TE BLD COUNT W/DIF F mean red cell volume 98.5 fL 82.0-9 9.0 Not Available [facility] (Lab) [address] [place], [address], 09/24/2022 20:15:42 09/25/19 23 09/24/2022 CBC/C OMPLE TE BLD COUNT W/DIF F mean red cell hemoglobin 32.6 pg 27.0-3 3.0 Not Available [facility] (Lab) [address] [place], [address], 09/24/2022 20:15:42 09/25/19 23 09/24/2022 CBC/C OMPLE TE BLD COUNT W/DIF F mean RBC HGB concentratio n 33.1 g/dL 31.0-3 6.0 Not Available [facility] (Lab) [address] [facility] [place], [address], 09/24/2022 20:15:42 09/25/19 23 09/24/2022 CBC/C OMPLE TE BLD COUNT W/DIF F red cell distribution width 11.9 % 11.8-1 5.5 Not Available [facility] (Lab) [address] [place], [address], 09/24/2022 20:15:42 09/25/19 23 09/24/2022 CBC/C OMPLE TE BLD COUNT W/DIF F platelets 219 x10'3 /uL 150-40 0 Not Available [facility] (Lab) [address] [place], [address], 09/24/2022 20:15:42 09/25/19 23 09/24/2022 CBC/C OMPLE TE BLD COUNT W/DIF F mean platelet volume 11.8 fL 9.0-12 .4 Not Available [facility] (Lab) [address] [place], [address], 09/24/2022 20:15:42 09/25/19 23 09/24/2022 CBC/C OMPLE TE BLD COUNT W/DIF F neutrophils 53.1 % 39.0-7 2.0 Not Available [facility] (Lab) [address] [place], [address], 09/24/2022 20:15:42 09/25/19 23 09/24/2022 CBC/C OMPLE TE BLD COUNT W/DIF F lymphocytes 32.5 % 16.0-4 7.0 Not Available [facility] (Lab) [address] [place], [address], 09/24/2022 20:15:42 09/25/19 23 09/24/2022 CBC/C OMPLE TE BLD COUNT W/DIF F monocytes 10.9 % 5.0-12 .0 Not Available [facility] (Lab) [address] [place], [address], 09/24/2022 20:15:42 09/25/19 23 09/24/2022 CBC/C OMPLE TE BLD COUNT W/DIF F eosinophils 2.3 % 1.0-7. 0 Not Available [facility] (Lab) [address] [place], [address], 09/24/2022 20:15:42 09/25/19 23 09/24/2022 CBC/C OMPLE TE BLD COUNT W/DIF F basophils 0.9 % 0.0-2. 0 Not Available [facility] (Lab) [address] [place], [address], 09/24/2022 20:15:42 09/25/19 23 09/24/2022 CBC/C OMPLE TE BLD COUNT W/DIF F immature granulocytes 0.3 % 0.00-0 .50 Not Available [facility] (Lab) [address] [place], [address], 09/24/2022 20:15:42 09/25/19 23 09/24/2022 CBC/C OMPLE TE BLD COUNT W/DIF F neutrophils, absolute count 3.47 x10'3 /uL 1.5-8. 0 Not Available [facility] (Lab) [address] [place], [address], 09/24/2022 20:15:42 09/25/19 23 09/24/2022 CBC/C OMPLE TE BLD COUNT W/DIF F lymphocytes, absolute count 2.12 x10'3 /uL 1.07-3 .43 Not Available [facility] (Lab) [address] [place], [address], 09/24/2022 20:15:42 09/25/19 23 09/24/2022 CBC/C OMPLE TE BLD COUNT W/DIF F monocytes, absolute count 0.71 x10'3 /uL 0.29-0 .99 Not Available [facility] (Lab) [address] [place], [address], 09/24/2022 20:15:42 09/25/19 23 09/24/2022 CBC/C OMPLE TE BLD COUNT W/DIF F eosinophils, absolute count 0.15 x10'3 /uL 0.02-0 .53 Not Available [facility] (Lab) [address] [place], [address], 09/24/2022 20:15:42 09/25/19 23 09/24/2022 CBC/C OMPLE TE BLD COUNT W/DIF F basophils, absolute count 0.06 x10'3 /uL 0.01-0 .08 Not Available [facility] (Lab) [address] [place], [address], 09/24/2022 20:15:42 09/25/19 23 09/24/2022 CBC/C OMPLE TE BLD COUNT W/DIF F immature granulocytes ,absolute 0.02 x10'3 /uL 0.00-0 .05 Not Available [facility] (Lab) [address] [place], [address], 09/24/2022 20:15:42 09/25/19 23 09/24/2022 CBC/C OMPLE TE BLD COUNT W/DIF F nucleated red blood cells 0.0 % -0 Not Available [facility] (Lab) [address] [place], [address], 09/24/2022 20:15:42 09/25/19 23 09/24/2022 CBC/C OMPLE TE BLD COUNT W/DIF F NRBC# 0.00 x10'3 /uL Not Available [facility] (Lab) [address] [facility] [place], [address], 09/24/2022 20:15:42 09/25/19 23 09/24/2022 COMPR EHENS NOVA METAB OLIC PANEL sodium 137 mmol/ L 137-14 5 Not Available [facility] (Lab) [address] [place], [address], 09/24/2022 20:58:05 09/25/19 23 09/24/2022 COMPR EHENS NOVA METAB OLIC PANEL potassium 3.9 mmol/ L 3.5-5. 1 Not Available [facility] (Lab) [address] [place], [address], 09/24/2022 20:58:05 09/25/19 23 09/24/2022 COMPR EHENS NOVA METAB OLIC PANEL chloride 105 mmol/ L 98-107 Not Available [facility] (Lab) [address] [place], [address], 09/24/2022 20:58:05 09/25/19 23 09/24/2022 COMPR EHENS NOVA METAB OLIC PANEL carbon dioxide 24 mmol/ L 22-30 Not Available [facility] (Lab) [address] [place], [address], 09/24/2022 20:58:05 09/25/19 23 09/24/2022 COMPR EHENS NOVA METAB OLIC PANEL anion gap 11.9 mmol/ L 14-22 low Not Available [facility] (Lab) [address] [place], [address], 09/24/2022 20:58:05 09/25/19 23 09/24/2022 COMPR EHENS NOVA METAB OLIC PANEL glucose 90 mg/dL 70-99 Not Available [facility] (Lab) [address] [place], [address], 09/24/2022 20:58:05 09/25/19 23 09/24/2022 COMPR EHENS NOVA METAB OLIC PANEL BUN 10 mg/dL 8-19 Not Available [facility] (Lab) [address] [place], [address], 09/24/2022 20:58:05 09/25/19 23 09/24/2022 COMPR EHENS NOVA METAB OLIC PANEL creatinine 0.68 mg/dL 0.66-1 .25 Not Available [facility] (Lab) [address] [place], [address], 09/24/2022 20:58:05 09/25/19 23 09/24/2022 COMPR EHENS NOVA METAB OLIC PANEL GFR >60 Refer ence Range : [place] GFR Healt hy Adult : >60 mL/mi n/1.7 3 m2 Chron ic Kidne y Disea se: 15-60 mL/mi n/1.7 3 m2 Kidne y Failu re: <15/m L/min /1.73 m2 [email or web address] ov The MDRD study equat ion has not been valid ated in child perla <18 years of age; pregn ant women ; the elder ly >85 years of age; or in some racia l or ethni c subgr oups, such as ri nics. Outsi de the valid ated zelda eters , estim ated GFR is less accur ate, requi ring clini kimberly judgm ent on a case- by-ca se basis . Clini kimberly inter preta tion for other races and ages must be made by the clini spencer. The MDRD study equat ion has not been valid ated for the evalu ation of serum creat inine relat ed to nutri francia l statu s or medic ation usage . For perso ns <18 years of age, a pedia tric GFR calcu lator is avail able on the NKF websi te: https ://citlalli w.stephanie siddiqui.o rg/pr amandeepess ional s/kdo qi/gf r_cal culat or Not Available [facility] (Lab) [address] [place], [address], 09/24/2022 20:58:05 09/25/19 23 09/24/2022 COMPR EHENS NOVA METAB OLIC PANEL alkaline phosphatase 52 U/L 38-126 Not Available [facility] (Lab) [address] [place], [address], 09/24/2022 20:58:05 09/25/19 23 09/24/2022 COMPR EHENS NOVA METAB OLIC PANEL alanine aminotransfe rase 17 U/L 0-35 Not Available [facility] (Lab) [address] [place], [address], 09/24/2022 20:58:05 09/25/19 23 09/24/2022 COMPR EHENS NOVA METAB OLIC PANEL aspartate aminotransfe rase 23 U/L 15-37 Not Available [facility] (Lab) [address] [place], [address], 09/24/2022 20:58:05 09/25/19 23 09/24/2022 COMPR EHENS NOVA METAB OLIC PANEL bilirubin, total 0.50 mg/dL 0.20-1 .30 Not Available [facility] (Lab) [address] [place], [address], 09/24/2022 20:58:05 09/25/19 23 09/24/2022 COMPR EHENS NOVA METAB OLIC PANEL calcium 9.4 mg/dL 8.4-10 .2 Not Available [facility] (Lab) [address] [place], [address], 09/24/2022 20:58:05 09/25/19 23 09/24/2022 COMPR EHENS NOVA METAB OLIC PANEL total protein 7.5 g/dL 6.3-8. 2 Not Available [facility] (Lab) [address] [place], [address], 09/24/2022 20:58:05 09/25/19 23 09/24/2022 COMPR EHENS NOVA METAB OLIC PANEL albumin 4.5 g/dL 3.4-5. 0 Not Available [facility] (Lab) [address] [place], [address], 09/24/2022 20:58:05 09/25/19 23 09/24/2022 COMPR EHENS NOVA METAB OLIC PANEL globulin 3.0 g/dL 2.6-4. 2 Not Available [facility] (Lab) [address] [place], [address], 09/24/2022 20:58:05 09/25/19 23 09/24/2022 COMPR EHENS NOVA METAB OLIC PANEL A/G ratio 1.5 ratio 1.0-2. 0 Not Available [facility] (Lab) [address] [place], [address], 09/24/2022 20:58:05 09/25/19 23 09/24/2022 VITAM IN D 25-HY DROXY vd25oh 38.3 NG/mL 30-100 Vitam in D Statu s: Defic ient: <20 ng/mL Insuf ficie nt: 20-29 ng/mL Suffi cient : 30-10 0 ng/mL Not Available [facility] (Lab) [address] [place], [address], 09/24/2022 21:20:31 09/25/1909/24/2022 TSH W/REF RUBA FT4 TSH with reflex free T4 1.530 uIU/m L 0.465- 4.680 Not Available [facility] (Lab) [address] [place], [address], 09/24/2022 21:22:45 09/25/19 23 09/24/2022 URINA LYSIS COMPL ETE/I RIS W/RFX color YELLOW Not Available [facility] (Lab) [address] [place], [address], 09/24/2022 21:25:58 09/25/19 23 09/24/2022 URINA LYSIS COMPL ETE/I RIS W/RFX appear TURBID abnormal Not Available [facility] (Lab) [address] [place], [address], 09/24/2022 21:25:58 09/25/19 23 09/24/2022 URINA LYSIS COMPL ETE/I RIS W/RFX specific gravity 1.020 1.001- 1.030 Not Available [facility] (Lab) [address] [place], [address], 09/24/2022 21:25:58 09/25/19 23 09/24/2022 URINA LYSIS COMPL ETE/I RIS W/RFX pH 7.0 pH_un its 5.0-9. 0 Not Available [facility] (Lab) [address] [place], [address], 09/24/2022 21:25:58 09/25/19 23 09/24/2022 URINA LYSIS COMPL ETE/I RIS W/RFX leukocytes NEGATI VE jennifer/u L negati ve- Not Available [facility] (Lab) [address] [place], [address], 09/24/2022 21:25:58 09/25/19 23 09/24/2022 URINA LYSIS COMPL ETE/I RIS W/RFX nitrite NEGATI VE negati ve- Not Available [facility] (Lab) [address] [place], [address], 09/24/2022 21:25:58 09/25/19 23 09/24/2022 URINA LYSIS COMPL ETE/I RIS W/RFX protein NEGATI VE mg/dL negati ve- Not Available [facility] (Lab) [address] [place], [address], 09/24/2022 21:25:58 09/25/19 23 09/24/2022 URINA LYSIS COMPL ETE/I RIS W/RFX glucose NORMAL mg/dL normal - Not Available [facility] (Lab) [address] [place], [address], 09/24/2022 21:25:58 09/25/19 23 09/24/2022 URINA LYSIS COMPL ETE/I RIS W/RFX ketones NEGATI VE mg/dL negati ve- Not Available [facility] (Lab) [address] [place], [address], 09/24/2022 21:25:58 09/25/19 23 09/24/2022 URINA LYSIS COMPL ETE/I RIS W/RFX urobilinogen NORMAL mg/dL normal - Not Available [facility] (Lab) [address] [place], [address], 09/24/2022 21:25:58 09/25/19 23 09/24/2022 URINA LYSIS COMPL ETE/I RIS W/RFX bilirubin NEGATI VE mg/dL negati ve- Not Available [facility] (Lab) [address] [place], [address], 09/24/2022 21:25:58 09/25/19 23 09/24/2022 URINA LYSIS COMPL ETE/I RIS W/RFX blood NEGATI VE mg/dL negati ve- Not Available [facility] (Lab) [address] [place], [address], 09/24/2022 21:25:58 09/25/19 23 09/24/2022 URINA LYSIS COMPL ETE/I RIS W/RFX white blood cells 0-8 /i??h pfi?? 0-8 Not Available [facility] (Lab) [address] [place], [address], 09/24/2022 21:25:58 09/25/19 23 09/24/2022 URINA LYSIS COMPL ETE/I RIS W/RFX red blood cells 0-4 /i??h pfi?? 0-4 Not Available [facility] (Lab) [address] [place], [address], 09/24/2022 21:25:58 09/25/19 23 09/24/2022 URINA LYSIS COMPL ETE/I RIS W/RFX bacteria NONE Not Available [facility] (Lab) [address] [place], [address], 09/24/2022 21:25:58 09/25/19 23 09/24/2022 URINA LYSIS COMPL ETE/I RIS W/RFX mucous OCCASI ONAL /i??l pfi?? abnormal Not Available [facility] (Lab) [address] [place], [address], 09/24/2022 21:25:58 09/25/19 23 09/24/2022 URINA LYSIS COMPL ETE/I RIS W/RFX squamous epithelial MANY /i??l pfi?? abnormal Not Available [facility] (Lab) [address] [place], [address], 09/24/2022 21:25:58 09/25/19 23 09/24/2022 URINA LYSIS COMPL ETE/I RIS W/RFX budding yeast PACKED FIELD /i??h pfi?? abnormal Not Available [facility] (Lab) [address] [place], [address], 09/24/2022 21:25:58 Result Notes None recorded. Problems Name Problem SNOMED Code Status Onset Date Resolution Date Notes Provider Name and Address Organization Details Recorded Time Impacted cerumen of bilateral ears 7133041449174 108 Active 2019 Not Available [facility] 3 22:23:24 Bipolar disorder 63809950 Active 2021 Not Available [facility] 3 22:23:24 History of anxiety state 079847512 Active 2019 Not Available [facility] 3 22:23:24 Mood disorder 45496750 Active 2021 Not Available [facility] 3 22:23:24 Vaping Active 2022 Socrates Burgess MD [address], [address], [place], [address] , [facility] [employer] [facility] 3 11:39:56 Problem Notes None recorded. Procedures Surgical History Date Name Laterality Status Provider Name and Address Organization Details Recorded Time 3 Smoking Cessation completed Socrates Burgess MD [address], [address], [place], [address], [employer] [facility] [employer] 09/10/2022 11:35:20 Imaging Results None recorded. Procedure Notes None recorded. Medical Equipment None Reported. Allergies No known drug allergies Medications Name Sig Start Date Stop Date Status Note LastModified by Organization Details LastModified Time medroxypro gesterone 10 mg tablet TAKE 1 TABLET BY MOUTH EVERY NIGHT FOR ACUTE OPIOID THERAPY DAYS IF PERIOD DOES NOT START ON ITS OWN 08/29 completed Not Available Not Available Not Available ibuprofen 800 mg tablet TAKE 1 TABLET BY MOUTH EVERY 8 HOURS WITH FOOD NEEDED 02/27 completed Not Available Not Available Not Available prednisone 20 mg tablet TAKE 2 TABLETS BY MOUTH EVERY DAY FOR 5 DAYS 08/29 completed Not Available Not Available Not Available Debrox 6.5 % ear drops INSTILL 4 DROPS INTO AFFECTED EAR(S) BY OTIC ROUTE 2 TIMES PER DAY 08/29 completed Start using 5 days before next appoint ment. Not Available Not Available Not Available quetiapine 100 mg tablet TAKE 1 TABLET BY MOUTH AT BEDTIME DIRECTED active Not Available Not Available No t Available amoxicilli n 875 mg tablet TAKE 1 TABLET BY MOUTH EVERY 12 HOURS FOR 10 DAYS 02/27 completed Not Available Not Available Not Available cephalexin 500 mg capsule TAKE 1 CAPSULE BY MOUTH EVERY 12 HOURS FOR 5 DAYS 09/10 completed Not Available Not Available Not Available azithromyc in 500 mg tablet TK 2 TS PO PRN FOR 1 DAY 08/29 completed Not Available Not Available Not Available nitrofuran toin monohydrat e/macrocry stals 100 mg capsule TAKE 1 CAPSULE BY MOUTH EVERY 12 HOURS FOR 5 DAYS 09/10 completed Not Available Not Available Not Available quetiapine 50 mg tablet TAKE 1 TABLET BY MOUTH EVERY DAY AT BEDTIME 02/27 completed Not Available Not Available Not Available Blisovi Fe 06/21 (28) 1 mg-20 mcg (21)/75 mg (7) tablet TAKE 1 TABLET BY MOUTH DAILY active Not Available Not Available No t Available Vitals Date Recorded Body height Body mass index (BMI) Body weight Body temperature Heart rate Oxygen saturation Oxygen saturation in Arterial blood by Pulse oximetry Respiratory rate Systolic blood pressure Diastolic blood pressure Provider Name and Address Organization Details Last Updated DateTime 3 172.72 cm 22.2 kg/m2 03435.4 9 g 97.8 [degF] 94 /min 98 % 98 % 16 /min 122 mm[Hg] 74 mm[Hg] Layne Hartman RN [facility] [employer] [facility] 3 11:38:13 Date Recorded Body height Body mass index (BMI) Body weight Body temperature Heart rate Respiratory rate Systolic blood pressure Diastolic blood pressure Provider Name and Address Organization Details Last Updated DateTime 3 172.72 cm 22.2 kg/m2 99409.4 9 g 98 [degF] 88 /min 16 /min 120 mm[Hg] 78 mm[Hg] Layne Hartman RN [facility] [employer] [facility] 3 11:35:17 Date Recorded Body mass index (BMI) Body height Oxygen saturation Oxygen saturation in Arterial blood by Pulse oximetry Heart rate Respiratory rate Body temperature Body weight Systolic blood pressure Diastolic blood pressure Provider Name and Address Organization Details Last Updated DateTime 2 20.2 kg/m2 172.72 cm 99 % 99 % 88 /min 16 /min 98.2 [degF] 12041.1 4 g 118 mm[Hg] 80 mm[Hg] Not Available [facility] 3 22:23:11 Date Recorded Body mass index (BMI) Body height Oxygen saturation Oxygen saturation in Arterial blood by Pulse oximetry Heart rate Respiratory rate Body temperature Body weight Systolic blood pressure Diastolic blood pressure Provider Name and Address Organization Details Last Updated DateTime 2 22 kg/m2 172.72 cm 99 % 99 % 78 /min 18 /min 98.7 [degF] 58944.8 9 g 120 mm[Hg] 72 mm[Hg] Not Available [facility] 22:23:11 Social History Question Answer Notes LastModified by Organizat ion Details LastModified Time Tobacco Smoking Status Never Smoker Not Available [facility] 07/31/2022 22:22:43 Do You Have An Advance Directive? Yes [id number] Information not available 07/31/2022 Do You Wear A Helmet When Biking? Yes MIGRATION.[id number] 026 Information not available 07/31/2022 What Is Your Level Of Caffeine Consumption? Heavy MIGRATION.9159414 026 Information not available 07/31/2022 In The 14 Days Before Symptom Onset, Have You Had Close Contact With A Laboratory-confirm ed COVID-19 While That Case Was Ill? No MIGRATION.[id number] 026 Information not available 07/31/2022 In The 14 Days Before Symptom Onset, Have You Had Close Contact With A Person Who Is Under Investigation For COVID-19 While That Person Was Ill? No MIGRATION.0621241 026 Information not available 07/31/2022 What Type Of Diet Are You Following? REGULAR MIGRATION.0788491 026 Information not available 07/31/2022 What Is The Highest Grade Or Level Of School You Have Completed Or The Highest Degree You Have Received? [id number] MIGRATION.8895694 026 Information not available 07/31/2022 Have There Been Any Changes To Your Family Or Social Situation? No MIGRATION.[id number] 026 Information not available 07/31/2022 What Is The Fluoride Status Of Your Home? Unknown MIGRATION.[id number] 026 Information not available 07/31/2022 Are There Any Guns Present In Your Home? No MIGRATION.6505283 026 Information not available 07/31/2022 Do You Use Insect Repellent Routinely? Yes MIGRATION.[id number] 026 Information not available 07/31/2022 Where Do You Live? [place] MIGRATION .[id number] 026 Information not available 07/31/2022 Do You Have A Medical Power Of Kiln Transfer Operator? Yes MIGRATION.0332073 026 Information not available 07/31/2022 Have You Ever Been Counseled For Unhealthy Alcohol Use? No MIGRATION.6558057 026 Information not available 07/31/2022 Do You Have Any Pets? Yes MIGRATION.7644095 026 Information not available 07/31/2022 What Is Your Relationship Status? Single MIGRATION.7116042 026 Information not available 07/31/2022 Do You Use Your Seat Belt Or Car Seat Routinely? Yes MIGRATION.0242014 026 Information not available 07/31/2022 Do You Have Smoke And Carbon Monoxide Detectors In Your Home? Yes MIGRATION.0716635 026 Information not available 07/31/2022 Are You Passively Exposed To Smoke? No MIGRATION.0198305 026 Information not available 07/31/2022 Are There Any Smokers In Your House? No MIGRATION.3374495 026 Information not available 07/31/2022 Do You Participate In Social [employer]? Yes MIGRATION.6374312 026 Information not available 07/31/2022 Do You Use Sunscreen Routinely? Yes MIGRATION.7077441 026 Information not available 07/31/2022 Has Tobacco Cessation Counseling Been Provided? Yes MIGRATION.3187567 026 Information not available 07/31/2022 Have You Recently Traveled Abroad? No MIGRATION.6111316 026 Information not available 07/31/2022 Are You Currently In School? Yes MIGRATION.7305137 026 Information not available 07/31/2022 Do You Have Any Dietary Restrictions? No MIGRATION.1722236 026 Information not available 07/31/2022 How Many Years Have You Used E-cigarettes Or Vape? 5 MIGRATION.2675139 026 Information not available 07/31/2022 Sex: Female Functional Status Question Answer Note LastModified by Organizat ion Details LastModified Time Do you use any illicit or recreational drugs? No MIGRATION.089480 9703 Information not available 07/31/2022 Do you or have you ever used any other forms of tobacco or nicotine? Yes MIGRATION.376152 4041 Information not available 07/31/2022 What is your level of alcohol consumption? Occasional MIGRATION.143716 4671 Information not available 07/31/2022 Do you or have you ever used smokeless tobacco? 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 Current user of electronic cigarettes MIGRATION.855079 3468 Information not available 07/31/2022 What is your exercise level? Heavy MIGRATION.046619 6977 Information not available 07/31/2022 Mental Status Question Answer Note LastModified by Organizat ion Details LastModified Time Do you feel stressed (tense, restless, nervous, or anxious, or unable to sleep at night)? [id number] MIGRATION.[id number] 6 Information not available 07/31/2022 Family History Relationship Description Onset Age of this Age Resolved Age Notes LastModified by Organization Details LastModified Time Paternal Grandmother Family history of malignant neoplasm MIGRATION.[id number] Not available 07/31/2022 22:23:01 Maternal Grandmother Family history of malignant neoplasm MIGRATION.[id number] Not available 07/31/2022 22:23:01 Medical History Condition Response BLINDNESS N RHEUMATIC FEVER N KIDNEY STONES N BLADDER PROBLEMS N MRSA N OTHER # 1 N POLIO N LUNG DISEASE/DISORDER N HISTORY OF DRUG ABUSE N RADIATION / CHEMOTHERAPY N COPD N Other # 2 N BLOOD DISEASES N SURGERY N EAR OR HEARING PROBLEMS N MUMPS N SHINGLES N BOWEL PROBLEMS N FEMALE PROBLEMS / INFECTIONS N DEPRESSION (INCLUDING POST ) N STROKE/TIA N THYROID DISEASE N ULCERS N BENIGN PROSTATIC HYPERPLASIA N MEASLES N CERVICALGIA N HYPOTENSION N TB SKIN TEST N MYOCARDIAL INFARCTION N PARAPELGIA N OBESITY N GERD/NAUSEA N ANEURYSM N URINARY/BLADDER/KIDNEY PROBLEMS N CORONARY ARTERY DISEASE (CAD) N MENIERE'S DISEASE N ADDICTION CONCERNS N ENDOMETRIOSIS N USE OF BLOOD THINNERS N SKIN PROBLEMS N EMPHYSEMA N GASTROINTESTINAL DISORDER N MUSCLE,JOINT OR BONE PROBLEMS N GASTROINTESTINAL BLEEDING N BLOOD CLOTS N ASTHMA N CATARACTS N ERECTILE DYSFUNCTION N GI PROBLEMS N CHF N Low Testosterone N NEUROPATHY N INFERTILITY N AIDS/HIV N FRACTURES N CHEMOTHERAPY / RADIATION N VISION/EYE PROBLEMS N LIVER DISEASE N MALE HYPOGONADISM N HYPERTENSION N TOURETTE'S N ANXIETY DISORDER N BLOOD TRANSFUSION N ANEMIA/BLOOD DISORDER N CHRONIC EAR INFECTIONS N BRONCHITIS N TUBERCULOSIS N GLAUCOMA N FOOT PROBLEM N DIVERTICULITIS N CHICKENPOX N SLEEP APNEA N ALLERGIES/HAYFEVER N INFECTIOUS DISEASE N HEART ARRHYTHMIA N PROSTATE N INSOMNIA N HIGH CHOLESTEROL / HYPERLIPIDEMIA N HYPERTHYROIDISM N EYE PROBLEMS N EATING DISORDER N EDEMA N CHRONIC PAIN SYNDROME N CONSTIPATION N CAROTID BLOCKAGE N BACK / NECK PROBLEMS N HAVE YOU BEEN HOSPITALIZED OR SEEN IN [facility] IN THE PAST YEAR ? N ATHEROSCLEROSIS N BREAST PROBLEMS N DIALYSIS N ECZEMA N FIBROMYALGIA N OSTEOPOROSIS N ARTHRITIS N NO SIGNIFICANT PAST MEDICAL HISTORY N APPENDICITIS N DIABETES, TYPE N BAD TEETH N HEARTBURN / REFLUX N ADD/ADHD N AUTISM SPECTRUM DISORDER (ASD) N HEPATITIS / LIVER DISEASE N PULMONARY DISEASE N GOUT N SLEEP DISORDER N ALZHEIMER'S DISEASE N PAIN N HERPES N DEMENTIA N HEADACHES/MIGRAINES N SEIZURES/EPILEPSY N VASCULAR DISEASE N PACEMAKER N DIZZINESS N HEART DISEASE/HEART PROBLEMS N KIDNEY DISEASE N DEVELOPMENTAL OR BEHAVIORAL DISORDERS N MULTIPLE SCLEROSIS N SCARLET FEVER N MENTAL DISORDER/ILLNESS N CARDIAC ARRHYTHMIA N CANCER: SPECIFY N PNEUMONIA N ATRIAL FIBRILLATION N Gall Stones N PULMONARY EMBOLISM N AUTOIMMUNE DISEASE N Gynecological History Statement/Question Response Flow Light Date of LMP 08/20/2021 Sexually Active? Y Weight gain N Dislike of Light during Menstrual Headac he N Menses Monthly N STIs/STDs N Breast Problems none Discharge none Obstetrics History GPAL:G 0 P 0 0 0 0 Immunizations Vaccine Type Date Status Note Provider Nam e and Address Organization Details Recorded Time Influenza, split virus, quadrivalent, PF 02/27/2022 completed Not Available [facility] 3 22:24:11 Influenza, split virus, quadrivalent, PF 04/03/2020 completed Not Available [facility] 3 22:24:11 Past Encounters Encounter ID Performer Location Encounter Start Date Encounter Closed Date Diagnosis/Indication Diagnosis SNOMED-CT Code Diagnosis ICD10 Code Diagnosis Note [id number] Socrates Burgess MD [address] [address] 08/29/2021 00:00:00 08/29/2021 12:28:19 [id number] Socrates Burgess MD [address] [address] 10/03/2021 00:00:00 10/03/2021 12:30:12 [id number] Socrates Burgess MD [address] [address] 11/01/2021 00:00:00 11/01/2021 09:21:46 [id number] Socrates Burgess MD [address] [address] 02/27/2022 00:00:00 02/27/2022 16:07:51 [id number] Ericka Chester NP [address] [address] 09/24/2021 00:00:00 09/24/2021 17:15:40 [id number] Ericka Chester NP [facility] [address] [address] 10/22/2021 00:00:00 10/22/2021 11:13:27 [id number] Ericka Chester NP [facility] [address] [address] 11/19/2021 00:00:00 11/19/2021 10:55:01 [id number] Ericka Chester NP [facility] [address] [address] 01/15/2022 00:00:00 01/15/2022 11:28:16 [id number] Ericka Chester NP [facility] [address] [address] 02/28/2022 00:00:00 02/28/2022 18:37:43 [id number] Ericka Chester NP [facility] [address] [address] 05/01/2022 00:00:00 05/01/2022 11:51:17 [id number] Ericka Chester NP [facility] [address] [address] 08/20/2022 12:08:09 08/20/2022 15:30:41 [id number] Socrates Burgess MD S_G [address] [address] 09/10/2022 11:30:50 09/10/2022 11:50:41 Adult health examination 404361585 Z00.00 Vaping 473609057 Z77.29 Bipolar disorder 5988201 4 F31.9 Screening for disorder 189155884 Z13.9 [id number] Socrates Burgess MD [facility] [address] 09/24/2022 10:25:36 09/24/2022 10:44:25 [id number] MD ALEX Perrin_SAIRA [address] [address] 10/01/2022 11:26:57 10/01/2022 11:42:24 Vaping 182341306 Z77.29 Bipolar disorder 2826864 4 F31.9 History of anxiety state 426696166 F41.9 [id number] Ericka Chester NP [facility] [address] [facility] [place], [address] [address] 11/28/2022 10:57:12 11/28/2022 12:26:12 [id number] Ericka Chester NP [facility] [address] [address] 03/06/2023 15:57:06 03/06/2023 17:41:01 Health Concerns Section Related Observation LastModified by Organization Detai ls LastModified Time None Recorded Concern Status LastModified by Organization Details LastModified Time None Recorded Advance Directives Directive Y: Payers Insurance Date Sequence Insurance Name Policy Number Policy Malcolm Covered Member ID Malcolm Member ID Guarantor Name 07/24/2024 1 [facility] (MEDICAID REPLACEMENT - HMO) [id number] Tati Hong [id number] Tati Hong Notes Date Note Type Note Provider Name and Address Organization Details Recorded Time 09/10/2022 text/html Pt is here for her annual exam. Doing overall well. Denies any concerns.Pt is f/u with Psych for her mood and she is on Seroquel by them and is doing much better now. 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 PMH, and SH reviewed. Socrates Burgess MD [address] [facility] [place], [address], [place], [address], [facility] [employer] [facility] 09/10/2022 11:49:42 10/01/2022 text/html Pt is here for f/u on her annual labs. Doing overall well. Denies any concerns.Pt is f/u with Psych for her mood and she is on Seroquel by them and is doing much better now. 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 Socrates Burgess MD [address] [facility] [address], [place], [address], [employer] 10/01/2022 11:40:37 OBGyn Episode No OBEpisode recorded.
--- OUTSIDE RECORDS SUMMARY | 2024-11-17 12:39 | XMS_ITS | Data Portability ---
Author Organization [facility] [place] Address [address] [place] [address] [place] [address] Care Team Providers Care Porcelain Buildup Assistant Name Role Phone LILIAM MUSA Primary Care Provider Assessment Encounter Date Assessment Date Assessment LastModified by Organization Details LastModified Time 06/04/2024 06/04/2024 Patient is ___weeks . Discussed plan. Not available 06/04/2024 12:06:50 Plan of Treatment Reminders Order Date Submit Date Provider Last Modified By Organization Details Last Modified Time Details Appointments None recorded. Lab drug screen, urine 2024 025 [place], [address], [address], [place], [address], 5 11:09:53 test, urine 2023 024 [email or web address] [place] [address], [address], [place], [address], 4 16:42:20 Referral None recorded. Procedures None recorded. Surgeries None recorded. Imaging US, obstetric, nuchal translucenc y 2024 025 [email or web address] [place], [facility] [address], [place], [address], 5 08:27:19 US, obstetric, 1st trimester 2024 025 [email or web address] [place], [address], [address], [place], [address], 23:27:28 Medication Orders None recorded. Patient TargetsNo targets recorded. Patient InstructionsNo instructions recorded. Reason for Referral None Reported. Results Created Date Observation Date Name Description Value Unit Range Abnormal Flag Note LastModifiedBy Organization Detail LastModifiedTime 07/09/19 25 07/09/2024 [UNIT Y] ANEUP LOIDY NIPT fraction 14.7% normal Not Available [facility] [address] [place] [address], [place], [address], 07/09/2024 02:12:33 07/09/19 25 07/09/2024 [UNIT Y] ANEUP LOIDY NIPT 22Q11.2 microdeletio n LOW RISK <1 in 10,000 normal Not Available [facility] [address] [place], [address], 07/09/2024 02:12:33 07/09/19 25 07/09/2024 [UNIT Y] ANEUP LOIDY NIPT sex chromosome aneuploidy NOT DETECT ED normal Not Available [facility] [address] [place], [address], 07/09/2024 02:12:33 07/09/19 25 07/09/2024 [UNIT Y] ANEUP LOIDY NIPT monosomy X LOW RISK <1 in 10,000 normal Not Available [facility] [address] [place], [address], 07/09/2024 02:12:33 07/09/19 25 07/09/2024 [UNIT Y] ANEUP LOIDY NIPT trisomy 13 LOW RISK <1 in 10,000 normal Not Available [facility] [address] [place], [address], 07/09/2024 02:12:33 07/09/19 25 07/09/2024 [UNIT Y] ANEUP LOIDY NIPT trisomy 18 LOW RISK <1 in 10,000 normal Not Available [facility] [place], [address], 07/09/2024 02:12:33 07/09/19 25 07/09/2024 [UNIT Y] ANEUP LOIDY NIPT trisomy 21 LOW RISK <1 in 10,000 normal Not Available [facility] [address] [facility], [place], [address], 07/09/2024 02:12:33 07/09/19 25 07/09/2024 [UNIT Y] ANEUP LOIDY NIPT sex FEMALE normal Not Available [facility] [address] [facility], [place], [address], 07/09/2024 02:12:33 07/09/19 25 07/09/2024 [UNIT Y] ANEUP LOIDY NIPT gestation SINGLE TON normal Not Available [facility] [address] [facility], [place], [address], 07/09/2024 02:12:33 07/09/19 25 07/09/2024 [UNIT Y] ANEUP LOIDY NIPT for detailed report, see pdf See PDF normal Not Available [facility] [address] [facility], [place], [address], 07/09/2024 02:12:33 07/09/19 25 07/09/2024 [UNIT Y] RAFIA Lovett sickle cell disease/beta -thalassemia /hemoglobino pathies carrier screen NEGATI VE normal Not Available [facility] [address] [facility], [place], [address], 07/09/2024 17:46:40 07/09/19 25 07/09/2024 [UNIT Y] RAFIA Lovett alpha-thalas semia carrier screen NEGATI VE normal Not Available [facility] [address] [facility], [place], [address], 07/09/2024 17:46:40 07/09/19 25 07/09/2024 [UNIT Y] RAFIA Lovett cystic fibrosis carrier screen NEGATI VE normal Not Available [facility] [address], [place], [address], 07/09/2024 17:46:40 07/09/19 25 07/09/2024 [UNIT Y] RAFIA Lovett spinal muscular atrophy carrier screen NEGATI VE 2 SMN1 copies , SNP not presen t normal Not Available [facility] [address], [place], [address], 07/09/2024 17:46:40 07/09/19 25 07/09/2024 [UNIT Y] RAFIA Lovett for detailed report, see pdf See PDF normal Not Available [facility] [address], [place], [address], 07/09/2024 17:46:40 04/01/20 24 04/01/2024 SURGI KIMBERLY PATHO LOGY surgical pathology SEE RESULT S BELOW CASE REPOR T: Surgi kimberly Patho logy Repor t Case: [id number] Autho jagdeep conway Provi liza: Rick Roach MD Colle cted: 04/01 1652 Order ing Locat ion: [place] Patho logy Recei edmar: 04/02 0243 Patho logis t: Bill Tabares MD Speci men: ABBY Gamino ----- ----- ----- ----- ----- ----- ----- ----- ----- ----- ----- ----- ----- ----- ----- ----- ----- ---- FINAL DIAGN OSIS: ABBY Gamino: -High -grad e squam ous intra epith elial lesio n (JUVENCIO- 2). -Faina ins free of invol vemen t. Elect fatuma norton by Bill Tabares MD on 2023 at 10:47 AM ----- ----- ----- ----- ----- ----- ----- ----- ----- ----- ----- ----- ----- ----- ----- ----- ----- ---- COMME NT: Immun ohist ochem ical stain ing with p16 was obtai mandy on all 4 block s. The stain ing fransisco liang suppo rts the diagn osis. CLINI KIM[facility]LY INFOR MATIO N: HIGH GRADE SQUAM OUS INTRA EPITH ELIAL LESIO N ON PAP MICRO SCOPI C DESCR IPTIO N: A micro scopi c exami natio n was perfo rmed. This test was devel oped and its perfo rmanc e chele cteri stics deter mined by [facility]. It has not been clear ed or appro edmar by the U. S. Food and Drug Admin istra tion. The FDA has deter mined that such clear ance or appro trae is not neces ghazal. This test may be used for clini kimberly purpo se. It shoul d not be regar ded as inves tigat ional or for resea rch. This labor atory is certi fied under the Clini kimberly Labor atory Impro vemen t Amend ments of 1987 (CLIA ) as quali fied to perfo rm high compl exity clini kimberly labor atory testi ng. In cases which have decal cifie d tissu es, the resul ts shoul d be inter prete d with cauti on given the possi bilit y of false negat matt. The posit julianne contr ols demon strat e appro priat e posit julianne stain ing. The known tissu e negat julianne contr ols are negat julianne. The non-i mmune serum contr ol was non-r eacti ve. GROSS DESCR IPTIO N: A. Cervi x. The speci men is label ed with luis nt's name, demog noah underwood and ABBY . Recei edmar in forma luis is an unori ented , 2.0 x 1.5 x 1.0 cm cervi kimberly LEEP speci men. The endoc ervic al leonard n is inked yello w and the remai anita leonard n is inked green and the speci men is secti oned and submi tted all in casse ttes A1-A4 . Gross ed by My Ramirez ll Not Available [facility] (Lab) [address] , [place], [address], 04/03/2024 11:51:00 04/01/20 24 04/01/2024 pregn delia test, urine HCG negati ve Not Available [place] [address], [place], [address], 04/01/2024 16:42:12 06/04/19 25 06/04/2024 CT/GC AND TRICH OMONA S VAGIN YASH (RRNA ), URINE chlamydia trachomatis, PCR Negati ve negati ve Not Available [facility] (Lab) [address] , [place], [address], 06/05/2024 13:32:39 06/04/19 25 06/04/2024 CT/GC AND TRICH OMONA S VAGIN YASH (RRNA ), URINE neisseria gonorrhoeae, PCR Negati ve negati ve Not Available [facility] (Lab) [address] , [place], [address], 06/05/2024 13:32:39 06/04/19 25 06/04/2024 CT/GC AND TRICH OMONA S VAGIN YASH (RRNA ), URINE trichomonas vaginalis ribosomal RNA (rrna) Negati ve negati ve Not Available [facility] (Lab) [address] , [place], [address], 06/05/2024 13:32:39 06/29/19 25 06/29/2024 CBC W/DIF F WBC 10.9 10'3/ uL 3.5-10 .[address] [facility] (Lab) [address], [place], [address], 06/30/2024 10:37:37 06/29/19 25 06/29/2024 CBC W/DIF F RBC 3.94 10'6/ uL (based on docume nted legal sex) 3.80-[address] [facility] (Lab) [address] , [place], [address], 06/30/2024 10:37:37 06/29/19 25 06/29/2024 CBC W/DIF F HGB 12.5 g/dL (based on docume nted legal sex) 11.6-[address] [facility] (Lab) [address] [facility], [place], [address], 06/30/2024 10:37:37 06/29/19 25 06/29/2024 CBC W/DIF F HCT 38.1 % (based on docume nted legal sex) 34.0-[address] [facility] (Lab) [address], [place], [address], 06/30/2024 10:37:37 06/29/19 25 06/29/2024 CBC W/DIF F MCV 96.7 fL 80.0-[address] [facility] (Lab) [address] [facility], [place], [address], 06/30/2024 10:37:37 06/29/19 25 06/29/2024 CBC W/DIF F MCH 31.7 pg 27.0-[address] [facility] (Lab) [address] [facility], [place], [address], 06/30/2024 10:37:37 06/29/19 25 06/29/2024 CBC W/DIF F MCHC 32.8 g/dL 32.0-[address] [facility] (Lab) [address] [facility], [place], [address], 06/30/2024 10:37:37 06/29/19 25 06/29/2024 CBC W/DIF F RDW 11.9 % 11.0-[address] [facility] (Lab) [address] [facility], [place], [address], 06/30/2024 10:37:37 06/29/19 25 06/29/2024 CBC W/DIF F plt 251 10'3/ uL 150-[address] [facility] (Lab) [address] [facility], [place], [address], 06/30/2024 10:37:37 06/29/19 25 06/29/2024 CBC W/DIF F MPV 11.5 fL 8.8-[address] [facility] (Lab) [address] [facility], [place], [address], 06/30/2024 10:37:37 06/29/19 25 06/29/2024 CBC W/DIF F neutrophils 75.8 % 34.0-7 3[address] [facility] (Lab) [address] [facility], [place], [address], 06/30/2024 10:37:37 06/29/19 25 06/29/2024 CBC W/DIF F lymphocytes 15.5 % 15.0-[address] [facility] (Lab) [address] [facility], [place], [address], 06/30/2024 10:37:37 06/29/19 25 06/29/2024 CBC W/DIF F monocytes 7.2 % 1.0-[address] [facility] (Lab) [address] [facility], [place], [address], 06/30/2024 10:37:37 06/29/19 25 06/29/2024 CBC W/DIF F eosinophils 0.6 % 0.0-8. [address] [facility] (Lab) [address] [facility], [place], [address], 06/30/2024 10:37:37 06/29/19 25 06/29/2024 CBC W/DIF F basophils 0.6 % 0.0-2. [address] [facility] (Lab) [address], [place], [address], 06/30/2024 10:37:37 06/29/19 25 06/29/2024 CBC W/DIF F immature granulocytes 0.3 % no define d refere nce range Immat ure Granu locyt es (IG) repre sents autom ated enume ratio n of Metam yeloc ytes, Myelo cytes and Promy elocy lisa when IG is < 5%. Blast s are not inclu ded in IG and repor chapo separ ately if prese nt. Not Available [facility] (Lab) [address], [place], [address], 06/30/2024 10:37:37 06/29/19 25 06/29/2024 CBC W/DIF F absolute neutrophils 8.3 10'3/ uL 1.5-8. [address] [facility] (Lab) [address], [place], [address], 06/30/2024 10:37:37 06/29/19 25 06/29/2024 CBC W/DIF F absolute lymphocytes 1.7 10'3/ uL 1.0-4. [address] [facility] (Lab) [address], [place], [address], 06/30/2024 10:37:37 06/29/19 25 06/29/2024 CBC W/DIF F absolute monocytes 0.8 10'3/ uL 0.2-1. [address] [facility] (Lab) [address], [place], [address], 06/30/2024 10:37:37 06/29/19 25 06/29/2024 CBC W/DIF F absolute eosinophils 0.1 10'3/ uL 0.0-0. [address] [facility] (Lab) [address], [place], [address], 06/30/2024 10:37:37 06/29/19 25 06/29/2024 CBC W/DIF F absolute basophils 0.1 10'3/ uL 0.0-0. [address] [facility] (Lab) [address], [place], [address], 06/30/2024 10:37:37 06/29/19 25 06/29/2024 CBC W/DIF F absolute immature granulocytes 0.0 10'3/ uL 0.00-0 .10 Refer ence range s for nonbi nary/ inter sex or unspe cifie d gende r patie nts have not been estab lishe d. Pleconchita e refer to the follo wing table for range s estab lishe d for cisge nder patie nts and evalu ate in the clini kimberly lilia xt of the indiv idual patie nt: https ://la and book. nm.or g/Gen derX Not Available [facility] (Lab) [address], [place], [address], 06/30/2024 10:37:37 06/29/19 25 06/29/2024 HEPAT ITIS B SURFA CE ANTIG EN hepatitis B surface antigen Non-re active non-re active This assay was perfo rmed using [employer] ratio n reage nts and test kits. Value s obtai mandy with other assay metho ds or kits canno t be used inter hernandez eably . Not Available [facility] (Lab) [address], [place], [address], 06/30/2024 10:37:38 06/29/19 25 06/29/2024 HIV 1/2 ANTIG EN/AN TIBOD Y, REFLE X CONFI RMATI ON HIV antigen/anti body Nonrea ctive nonrea ctive HIV-1 antig en and HIV-1 /HIV- 2 antib odies were not detec chapo. No labor atory evide nce of HIV infec tion. Not Available [facility] (Lab) [address], [place], [address], 06/30/2024 10:37:38 06/29/19 25 06/29/2024 RUBEL LA IGG ANTIB CARLOS, QUANT rubella antibodies, IgG Reacti ve reacti ve Not Available [facility] (Lab) [address] , [place], [address], 06/30/2024 10:37:39 06/29/19 25 06/29/2024 RUBEL LA IGG ANTIB CARLOS, QUANT rubella antibodies, IgG quant 40.8 IU/mL >=10 Non-r eacti ve (Non- Immun e) <10 IU/mL React julianne (Immu ne) > or = 10 IU/mL Not Available [facility] (Lab) [address], [place], [address], 06/30/2024 10:37:39 06/29/19 25 06/29/2024 TYPE/ RH/SC REEN ABO/Rh type A POS Not Available [facility] (Lab) [address], [place], [address], 06/30/2024 10:37:39 06/29/19 25 06/29/2024 TYPE/ RH/SC REEN antibody screen NEG Not Available [facility] (Lab) [address] [facility], [place], [address], 06/30/2024 10:37:39 06/29/19 25 06/29/2024 TYPE/ RH/SC REEN exp date 2024 23:[address] [facility] (Lab) [address] [facility], [place], [address], 06/30/2024 10:37:39 06/29/19 25 06/29/2024 HEPAT ITIS C ANTIB CARLOS SCREE N, REFLE X TO CONFI RMATI ON hepatitis C antibody Non-re active non-re active Antib odies to HCV Not Detec chapo, does not exclu de the possi bilit y of expos ure to HCV. Not Available [facility] (Lab) [address], [place], [address], 06/30/2024 10:37:40 06/29/19 25 06/29/2024 HEMOG LOBIN A1C hemoglobin A1C 5.2 % 4.0-5. 6 The Ameri can Diabe lisa Assoc iatio n recom mends that a prima ry goal of thera py shoul d be a HBA1C of < 7% and that physi cians shoul d reeva luate the treat ment regim en in patie nts with HBA1C value s consi stent ly > 8%. <5.7% Cyndee l 5.7 - 6.4% Incre ased risk for diabe lisa >=6.5 % Diagn ostic of diabe lisa <7.0% Goal of thera py >8.0% Actio n sugge sted Not Available [facility] (Lab) [address] , [place], [address], 06/30/2024 10:37:40 06/29/19 25 06/29/2024 RPR SCREE N, REFLE X TITER /CONF IRMAT ION RPR screen Nonrea ctive nonrea ctive Not Available [facility] (Lab) [address], [place], [address], 06/30/2024 10:37:41 06/29/19 25 06/29/2024 CULTU RE: URINE result report SEE RESULT S BELOW Test: Cultu re: Urine Speci men Sourc e: Urine - Clean Catch Speci men Type: Urine Speci men Date: 2024 1305 Resul t Date: 2024 2154 Resul t Statu s: Final resul t Abnor mal: No Resul ting Lab: [facility] [address] [facility] [address] Tel: CULTU RE ----- ----- ----- --- No growt h in 1 day (dete ction level of 10,00 0 colon ies / ml.) Not Available [facility] (Lab) [address], [place], [address], 06/30/2024 22:57:47 06/29/19 25 06/29/2024 drug scree n, urine Amphetamines : negati ve Not Available [place] [address], [place], [address], 06/29/2024 11:09:23 06/29/19 25 06/29/2024 drug scree n, urine Cannabinoids : positi ve Not Available [place] [address], [place], [address], 06/29/2024 11:09:23 06/29/19 25 06/29/2024 drug scree n, urine Cocaine: negati ve Not Available [place] [address], [place], [address], 06/29/2024 11:09:23 06/29/19 25 06/29/2024 drug scree n, urine Opiates: negati ve Not Available [place] [address], [place], [address], 06/29/2024 11:09:23 06/29/19 25 06/29/2024 drug scree n, urine Phenocyclidi ne: negati ve Not Available [place] [address], [place], [address], 06/29/2024 11:09:23 06/29/19 25 06/29/2024 drug scree n, urine Barbiturates : negati ve Not Available [place] [address], [place], [address], 06/29/2024 11:09:23 06/29/19 25 06/29/2024 drug scree n, urine Benzodiazepi humberto: negati ve Not Available [place] [address], [place], [address], 06/29/2024 11:09:23 06/29/19 25 06/29/2024 drug scree n, urine Ethanol: negati ve Not Available [place] [address], [place], [address], 06/29/2024 11:09:23 06/29/19 25 06/29/2024 drug scree n, urine Hallucinogen s: negati ve Not Available [place] [address], [place], [address], 06/29/2024 11:09:23 06/29/19 25 06/29/2024 drug scree n, urine Inhalants: negati ve Not Available [place] [address], [place], [address], 06/29/2024 11:09:23 06/29/19 25 06/29/2024 drug scree n, urine Anabolic Steroids: negati ve Not Available [place] [address], [place], [address], 06/29/2024 11:09:23 06/04/19 25 06/04/2024 US, obste tric, 1st trime ster No observ ation record ed. [facility] [address], [place], [address], 06/04/2024 17:06:49 06/04/19 25 06/04/2024 US, obste tric, 1st trime ster No observ ation record ed. [email or web address] [facility], [place], [address], 06/05/2024 13:04:52 06/29/19 25 06/29/2024 US, obste tric, nucha l trans lucen cy No observ ation record ed. [email or web address] [place] [address], [place], [address], 06/29/2024 13:05:41 06/29/19 25 06/29/2024 US, obste tric, nucha l trans lucen cy No observ ation record ed. [email or web address] [address], [place], [address], 06/30/2024 09:21:23 Result Notes None recorded. Problems Name Problem SNOMED Code Status Onset Date Resolution Date Notes Provider Name and Address Organization Details Recorded Time Anxiety 14520378 Active 2020 Shanna Maile null, [facility] 1 14:37:40 27525571 Active 2024 Aliya Schaefer [facility], [facility] 5 10:58:29 Bipolar disorder 04538724 Active quetiapine Keven Roach MD [address], [place], [address], [facility] 5 11:12:09 Problem Notes None recorded. Procedures Surgical History Date Name Laterality Status Provider Name and Address Organization Details Recorded Time 04/01/20 24 LEEP completed Keven Roach MD [address], [place], [address], [facility] 04/01/2024 18:24:41 04/01/20 24 LEEP completed Aliya Schaefer [facility] 06/04/2024 12:15:05 02/13/20 24 Colposcopy completed Keven Roach MD [address], [place], [address], [facility] 02/14/2024 13:06:32 02/13/20 24 Colposcopy completed Aliya Schaefer [facility] 02/13/2024 10:34:47 02/13/20 24 Colposcopy completed Aliya Schaefer [facility] 02/13/2024 10:34:39 12/31/19 24 Date of Last Pap Smear completed Aliya Schaefer [facility] 02/13/2024 10:00:52 Imaging Results None recorded. Procedure Notes None recorded. Medical Equipment None Reported. Allergies No known drug allergies Medications Name Sig Start Date Stop Date Status Note LastModified by Organization Details LastModified Time medroxyprog esterone 10 mg tablet TAKE 1 TABLET BY MOUTH EVERY NIGHT FOR ACUTE OPIOID THERAPY DAYS IF PERIOD DOES NOT START ON ITS OWN 05/09 completed Not Available Not Available Not Available ibuprofen 800 mg tablet TAKE 1 TABLET BY MOUTH 2 HOURS BEFORE PROCEDURE 06/04 completed Not Available Not Available Not Available prednisone 20 mg tablet TAKE 2 TABLETS BY MOUTH EVERY DAY FOR 5 DAYS 05/09 completed Not Available Not Available Not Available metronidazo le 500 mg tablet Take 1 tablet every 12 hours by oral route for 7 days. 02/12 completed Not Available Not Available Not Available quetiapine 100 mg tablet TAKE 1 TABLET BY MOUTH EVERY DAY AT BEDTIME 2024 active Not Available Not Available Not Avai lable ondansetron 8 mg disintegrat ing tablet DISSOLVE 1 TABLET ON THE TONGUE 2 HOURS BEFORE PROCEDURE 06/04 completed Not Available Not Available Not Available oxycodone-a cetaminophe n 5 mg-325 mg tablet TAKE 2 TABLETS BY MOUTH 2 HOURS BEFORE THE PROCEDURE 06/04 completed Not Available Not Available Not Available alprazolam 0.5 mg tablet TAKE 1 TABLET BY MOUTH 2 HOURS BEFORE PROCEDURE 06/04 completed Not Available Not Available Not Available amoxicillin 875 mg tablet TAKE 1 TABLET BY MOUTH EVERY 12 HOURS FOR 10 DAYS 05/09 completed Not Available Not Available Not Available azithromyci n 500 mg tablet TK 2 TS PO PRN FOR 1 DAY 05/16 completed Not Available Not Available Not Available quetiapine 50 mg tablet TAKE 1 TABLET BY MOUTH EVERY DAY AT BEDTIME 12/30 completed Not Available Not Available Not Available Blisovi Fe 06/21 (28) 1 mg-20 mcg (21)/75 mg (7) tablet TAKE 1 TABLET BY MOUTH EVERY DAY 06/04 completed Not Available Not Available Not Available Gummies active Not Available Not Available Not Available Vitals Date Recorded Body height Body mass index (BMI) Body weight Systolic blood pressure Diastolic blood pressure Provider Name and Address Organization Details Last Updated DateTime 06/04/2024 170.18 cm 21.8 kg/m2 19654.34 g 111 mm[Hg] 72 mm[Hg] Aliya [facility] 5 12:09:40 Date Recorded Body height Body mass index (BMI) Body weight Systolic blood pressure Diastolic blood pressure Provider Name and Address Organization Details Last Updated DateTime 06/29/2024 170.18 cm 22.1 kg/m2 19819.52 g 127 mm[Hg] 83 mm[Hg] Aliya [facility] 5 10:56:13 Date Recorded Body height Body mass index (BMI) Body weight Systolic blood pressure Diastolic blood pressure Provider Name and Address Organization Details Last Updated DateTime 04/01/2024 170.18 cm 21.1 kg/m2 87091.97 g 106 mm[Hg] 69 mm[Hg] Vanessa Mcintosh [facility] 4 16:40:30 Social History Question Answer Notes LastModified by Organizat ion Details LastModified Time Tobacco Smoking Status Current Every Day [facility] 06/16/2020 11:10:20 If You Are , What Was Your Level Of Alcohol Consumption Prior To ? None Information not available 06/16/2020 How Many Years Have You Consumed Alcohol? 2 Information not available 06/16/2020 Are You Blind Or Do You Have Difficulty Seeing? No [email or web address] Information n ot available 09/26/2020 What Is Your Level Of Caffeine Consumption? Heavy Information not available 02/13/2024 In The 14 Days Before Symptom Onset, Have You Had Close Contact With A Laboratory-confirm ed COVID-19 While That Case Was Ill? No Information n ot available 12/31/2023 In The 14 Days Before Symptom Onset, Have You Had Close Contact With A Person Who Is Under Investigation For COVID-19 While That Person Was Ill? No Information not available 12/31/2023 Have You Been To An Area Known To Be High Risk For COVID-19? No Information not available 02/13/2024 Are You Deaf Or Do You Have Serious Difficulty Hearing? No [email or web address] Information not available 09/26/2020 What Type Of Diet Are You Following? REGULAR Information n ot available 02/13/2024 Which Illicit Or Recreational Drugs Have You Used? Stevenson Information not available 06/16/2020 What Is The Highest Grade Or Level Of School You Have Completed Or The Highest Degree You Have Received? [id number] Information not available 02/13/2024 How Many Days Of Moderate To Strenuous Exercise, Like A Brisk Walk, Did You Do In The Last 7 Days? 7 Information not available 06/16/2020 On Those Days That You Engage In Moderate To Strenuous Exercise, How Many Minutes, On Average, Do You Exercise? 60 Information not available 06/16/2020 Are There Any Guns Present In Your Home? No Information not available 02/13/2024 How Many Years Have You Used Illicit Or Recreational Drugs? 6 Information not available 06/16/2020 Have You Ever Been Counseled For Unhealthy Alcohol Use? No Information not available 06/16/2020 Do You Use Protection During Sex? Usually Information not available 02/13/2024 Do You Use Your Seat Belt Or Car Seat Routinely? Yes Information not available 02/13/2024 Do You Have Smoke And Carbon Monoxide Detectors In Your Home? Yes Information not available 02/13/2024 At What Age Did You Start Smoking Tobacco? 14 Information not available 06/16/2020 How Much Tobacco Do You Smoke? 1 PPD Information not available 02/13/2024 Do You Use Sunscreen Routinely? Yes Information not available 02/13/2024 Has Tobacco Cessation Counseling Been Provided? Yes Information not available 06/16/2020 On What Date Was Tobacco Cessation Counseling Provided? 09/26/2020 [email or web address] Information not available 09/26/2020 How Many Years Have You Smoked Tobacco? 6 Information not available 06/16/2020 Have You Used IV Drugs? No Information not available 06/16/2020 How Many Days In The Past Year Have You Consumed 4 Or More Drinks? 3 Information not available 06/16/2020 How Many Years Have You Used E-cigarettes Or Vape? 6 Information not available 06/16/2020 Sex: Unknown Functional Status Question Answer Note LastModified by Organizat ion Details LastModified Time Do you use any illicit or recreational drugs? Yes Information not available 06/16/2020 Do you or have you ever used any other forms of tobacco or nicotine? Yes Information not available 06/16/2020 What is your level of alcohol consumption? Occasional Information not available 06/16/2020 Do you or have you ever used smokeless tobacco? Never used smokeless tobacco Information not available 06/16/2020 Are you able to walk? 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 Current user of electronic cigarettes Information not available 05/03/2020 What is your exercise level? Heavy Information not available 06/16/2020 Mental Status Question Answer Note LastModified by Organization D etails LastModified Time Do you feel stressed (tense, restless, nervous, or anxious, or unable to sleep at night)? [id number] Information not available 02/13/2024 Family History Relationship Description Onset Age of this Age Resolved Age Notes LastModified by Organization Details LastModified Time Brother Asthma Not available 1 07/04/2019 10:54:09 Maternal Grandmother Carcinoma in situ of breast Not available 2024 10:15:15 Maternal Grandmother Diabetes mellitus Not available 2019 10:54:26 Maternal Grandmother Hypertensive disorder Not available 2019 10:54:34 Maternal Grandmother Carcinoma in situ of lung [email or web address] Not available 10:15:15 Mother Cyst of ovary [email or web address] Not available 2024 10:15:15 Medical History Condition Response History of STI Y Anxiety Disorder Y History of abnormal pap Y Gynecological History Statement/Question Response Abnormal Pap Y Date of Last Mammogram Flow Heavy Date of LMP 04/01/2024 N On BCP's at Conception? Y STIs/STDs Y Was last menstrual period normal N HPV Vaccine Y Colposcopy 02/13/2024 Duration of Flow (days) 10 Current Control Method Are cycles usually normal N Date of Last Colonoscopy Sexually Active? Y BCPs Menses Monthly N Date of DEXA bone scan Age of first menstrual cycle 9 Date of Last Pap Smear 12/31/2023 Sexual Problems? N LMP Unknown N Obstetrics History GPAL:G 1 P 0 0 0 0 Type Value Living 0 Total 1 Past Encounters Encounter ID Performer Location Encounter Start Date Encounter Closed Date Diagnosis/Indication Diagnosis SNOMED-CT Code Diagnosis ICD10 Code Diagnosis Note [id number] Guerita Earl , [facility] [address] [address] 05/03/2020 10:47:54 05/03/2020 11:38:26 Gynecologic examination 46696443 Z01.419 Take Calcium with Vitamin D 1200mg daily if not receiving in daily diet. It is strongly advised to have an annual flu shot and up can obtain at most pharmacies . If you have not had a TDap shot in the last 10 years you should obtain one as well. Discussed with patient & provided with informatio n regarding Gardisil vaccine to prevent the 4 strains for HPV that cause cervical cancer if under age 26. Encourage safe sexual practices, to use condoms and limit partners if not already in a monogamous relationsh ip. Do monthly self breast exams. Have mammogram yearly or every other year depending on family history. BRCA testing is now available for patients with strong genetic history of female cancer. If interested contact the office. Engage in daily exercise of low impact aerobic exercise 45-60 minutes 4-5 times weekly. Avoid tobacco and illicit drugs as well as using moderation with alcohol intake less than 1-2 8 oz beverages daily. This lifestyle behavior pattern will lead to less health conditions and longer life span. If BMI greater than 25 weight watchers or dietary consult advised. Patient received above instructio ns, and questions have been answered. If you have any questions please call or respond to this email. Patient was made aware of the patient portal and may obtain a paper copy of today's plan if desired. Primary pap done STD done Monogamous relationsh ip x 6mos Condoms for BC Smoking/va ping cessation encouraged . PRN marijuana use. 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 Oligomenorrhea [id number] N91.5 Hx of irregular menses since menarche at age 14yo. Periods can be q3mos to twice a year. Hx of Depo use which caused persistent AUB. Stopped this method; went on OCP for a few months in the past then stopped this method. Cycle pattern/fr equency remains the same q3mos to 2x/yr. LMP March 2020. Menses are usually about 3-4d when they occur; heavy flow with dysmenorrh ea. We agreed to labs/TVUS for further evaluation . Reviewed importance of having cycle at least q3mos due to risks precancers /cancers. Understand ing verbalized . Can discuss results/US /POC at upcoming visit. [id number] Guerita Earl [facility] [address],[place] [address] 06/16/2020 10:51:57 06/16/2020 12:36:08 Venereal disease screening [id number] Z11.3 RAPHAEL sent today Will call with results. Time spent in visit is a total of 15 mins with at least 50% of visit consisting of counseling and review of plan of care. [id number] Guerita Earl [facility] [address],[place] [address] 05/16/2020 11:26:36 05/16/2020 13:21:41 Oligomenorrhea 90386899 N91.5 TVUS reviewed Labs wnl Likely oligomenor davin is caused by inconsiste nt ovulation after being on Depo. She is not wanting a daily BC method at this time. Is fine with condoms for preg prevention . Counseled on Provera 10mg x 10 days to help produce a withdrawal bleed Understand s needs to have a menses at least q3mos to prevent dysplasias /precancer s/cancers. Trial of provera sent & will f/u for med check when she returns for her RAPHAEL for recent +CH in 6wks. Time spent in visit is a total of 15 mins with at least 50% of visit consisting of counseling and review of plan of care. [id number] Keven Roach MD [facility] [address],[place] [address] 05/16/2020 11:26:57 05/16/2020 12:04:53 Oligomenorrhea [id number] N91.5 [id number] Maryjo Martinez [facility] [address],[place] [address] 08/16/2020 14:08:36 08/16/2020 16:36:47 Pain in pelvis 43317693 R10.2 [id number] Keven Roach MD [facility] [address],[place] [address] 08/16/2020 15:03:53 08/16/2020 15:39:25 Pain in pelvis 20423213 R10.2 [id number] Keven Roach MD [facility] [address],[place] [address] 09/04/2020 16:28:07 09/05/2020 00:00:03 Pain in pelvis 54456522 R10.2 this patient is a 20-year-ol d female with pelvic pain who presents for follow-up after ultrasound . Her pain is improved. Her ultrasound is unremarkab le. We agreed to observe her pain. [id number] Keven Roach MD [facility] [address],[place] [address] 09/26/2020 11:46:37 09/26/2020 12:43:41 Pain in pelvis 03282448 R10.2 This patient is 20-year-ol d female who has intense episodes of pelvic pain. She has had numerous episodes. Most recently it was it was provoked by intercours e. She had some bleeding that followed. Patient is amenorrhei c and she has progestero ne withdrawal bleeds. Her PCOS labs are normal. She have a pelvic ultrasound to see me quickly. [id number] Keven Roach MD [facility] [address],[place] [address] 10/09/2020 15:29:37 10/09/2020 15:52:57 Pain in pelvis 56707736 R10.2 this patient is a 20-year-ol d female with pelvic pain who presents for follow-up after ultrasound . Her pain is improved. Her ultrasound is unremarkab le. We agreed to observe her pain. [id number] Keven Roach MD [facility] [address] [address] 10/09/2020 15:30:02 10/10/2020 16:18:10 Contraception care management [id number] Z30.9 Pain in pelvis 54396010 R10.2 this patient is a 20-year-ol d female presents for pelvic pain, dyspareuni a, and abnormal uterine bleeding. Patient has longstandi ng dysmenorrh ea. She has been treated with Depo-Prove ra the past. Her regular bleeding recently has been treated with cyclic medroxypro gesterone. Patient did appear to ovulate recently and had a Normal menses. We discussed her current treatment, we discussed her ultrasound results, which is was a new plan going forward. Patient reports some skin concerns. We talked about diagnostic laparoscop y as well. We have agreed to go forward using combined oral contracept julianne pills. She will start a low-dose pill with norethindr one. She was given instructio ns and a prescripti on. She will follow-up in 3 months. [id number] JEREMY Vale [facility] [address] [address] 12/31/2023 12:36:09 12/31/2023 14:05:00 Gynecologic examination [id number] Z01.419 WWEpap updatedgc/ ct/trich testing added to papUTD with PCP It is strongly advised to have an annual flu shot and up can obtain at most pharmacies . If you have not had a TDap shot in the last 10 years you should obtain one as well. Discussed with patient & provided with informatio n regarding the HPV vaccine if applicable . Encourage safe sexual practices. Do monthly self breast exams.BRCA testing is now available for patients with strong genetic history of female cancer. If interested contact the office. Engage in regular exercise. Avoid tobacco and illicit drugs.This lifestyle behavior pattern will lead to less health conditions and longer life span. If BMI greater than 25 dietary consult advised. Patient received above instructio ns, and questions have been answered. Venereal d isease screening 676681712 Z11.3 [facility] ion care management [id number] Z30.9 doing well on current OCP and desires to continuere fills sent, r/b/a reviewed, updated consent reviewed and signed by pt [id number] Keven Roach MD [facility] [address] [address] 02/13/2024 09:55:39 02/16/2024 12:20:01 Screening procedure 23323869 Z13.9 Abnormal c ervical Papanicolaou smear [id number] R87.619 cervical biopsies were performed. She has some aceto-whit e in the anterior transition zone. It was a satisfacto ry exam. To follow up on results. [id number] Keven Roach MD [facility] [address],[facility] [place] [address] 04/01/2024 16:24:49 04/05/2024 02:57:33 Screening procedure [id number] Z13.9 Dysplasia of cervix 7339 1008 N87.9 LEEP procedure was performed. She tolerated it well. We will follow up on pathology results. [id number] Keven Roach MD [facility] [address],[place] [address] 06/04/2024 11:14:08 06/04/2024 12:57:06 Amenorrhea 14664842 N91.2 this patient is a 24-year-ol d female who presents for amenorrhea . She is a positive test. Ultrasound revealed a 1st trimester gestation. Patient has no complaints . We talked about early care. Talked about genetic screening. We talked about her ultrasound results. We talked about the 12 week ultrasound that has genetic screening components . She was given recommenda tions on exercise, diet, over-the-c ounter medication s. We reviewed her obstetric history. We reviewed her medical history. We reviewed her social history. She will begin routine care at her next visit. [id number] MD [facility] [address] [address] 06/04/2024 11:14:13 06/04/2024 11:53:17 screening [id number] Z36.87 Z3A.01 [id number] Keven Roach MD [facility] [address] [address] 06/29/2024 10:14:02 06/29/2024 10:45:22 screening [id number] Z36.82 Z3A.11 [id number] Keven Roach MD [facility] [address] [address] 06/29/2024 10:14:48 06/29/2024 11:34:22 Routine care [id number] Z34.90 Health Concerns Section Related Observation LastModified by Organization Detai ls LastModified Time None Recorded Concern Status LastModified by Organization Details LastModified Time None Recorded Advance Directives Directive None Recorded Payers Insurance Date Sequence Insurance Name Policy Number Policy Malcolm Covered Member ID Malcolm Member ID Guarantor Name 06/04/2024 1 [employer] [id number] Tati Hong [id number] Tati Hong 05/19/2024 1 [employer] [id number] Tati Hong [id number] Tati Hong 04/01/2024 1 [facility] (MEDICAID HMO) [id number] Tati Hong [id number] Tati Hong 02/13/2024 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 The procedure was explained to the patient in detail. She understands the procedure. She understands the risks, benefits, and alternatives. She has completed the informed consent process and is ready to proceed. Keven Roach MD [address], [place], [address], [facility] 04/01/2024 18:28:55 06/04/2024 text/html this patient is a 24-year-old female who presents for amenorrhea. She is a positive test. Ultrasound revealed a 1st trimester gestation. Patient has no complaints. We talked about early care. Talked about genetic screening. We talked about her ultrasound results. We talked about the 12 week ultrasound that has genetic screening components. She was given recommendations on exercise, diet, ptfw-[id number]-[id number] medications. We reviewed her obstetric history. We reviewed her medical history. We reviewed her social history. She will begin routine care at her next visit. Keven Roach MD [address], [place], [address], [facility] 06/04/2024 12:49:44 OBGyn Episode Ob Episode Information Episode Created Date Number of Fetuses Patient Bloodtype Patient rh Status Prepregnancy Weight lbs Domestic Partner Domestic Partner Phone Father Name Watch Dial Printer Status 06/29/19 25 1 A Positive OPEN Fetus Data First Name Last Name Admitted to NICU Weight (g) Sex Living Outcome Pediatric Complications Fetus ID Race Codes Race Delivery Type [id number] Problems Problem Notes Problem Name Start Date End Date Resolution Snomed Code Not e Bipolar disorder [id number] que tiapine Eitan Calculation Initial Eitan Date Initial Exam Date Initial Exam Provider Initial Ultrasound Date Last Menstrual Period Date Ultra Sound Weeks Gestation 06/29/2024 06/04/2024 04/01/2024 7 Eighteen To Twenty Week Eitan Update Ultra Sound Date Fundal Height At Umbil Quickening Date Ultra Sound Latest Weeks Gestation Final Eitan Confirmed By Final Eitan Confirmed Date Final Eitan Date Ultra Sound Latest Days Gestation 0 [email or web address] 06/29/2024 01/16/20 25 0 Pre-jose Flowsheet Flowsheet Date 06/29/2024 Irene Score Blood Edema Fundus Height Fundus Units Glucose Ketones Leukocytes Nitrite Labor Signs Protein Cervic Dilation Cervic Effacement Cervic Station Type Weight in lbs Pre/Post Dialysis Refused Weight [id number] BP Diastolic BP Location Tested BP Systolic BP Type 83 L arm 127 sitting Fetus Heart Rate Present A 145 Fetus Movement A No Comments this patient is a 24-year-ol d multiparous female at 12 weeks' gestation who presents for initial care. She has a history of term vaginal births. Her medical, surgical, obstetric history is unremarkable. She is vaccinated. She was given precautions recommendations for . We talked about vaccines in . Talked about care in detail. She is having genetic testing. She had a normal 12 week ultrasound. To begin routine care. Menstrual History Last Menstrual Date Menses Monthly On Bcp Conception Prior Menses Frequency Hcg Plus Date Menarche Onset Age 1004/01/2024 false Delivery Information Delivery Date Delivery Type Labor Anesthesia Weeks Gestation Incision Type Labor Labor Length Hrs Delivered By Post Complications Tubal Sterilization Discharge Date Comments Discharge Information Feeding Method Contraceptive Method Maternal HG B and HCT Levels
--- OUTSIDE RECORDS SUMMARY | 2024-11-17 12:39 | XMS_ITS | Data Portability ---
Author Organization [employer] , [facility] Address [address] [place] [address] Assessment Encounter Date Assessment Date Assessment LastModified by Organization Details LastModified Time 09/02/2022 09/02/2022 Mastalgia: no distinct mass baseline w/u ordered UPT neg Tight supportive bra and NSAIDs prn US ordered for baseline evaluation. [email or web address] Not available 12/02/2022 14:19:51 Plan of Treatment Reminders Order Date Submit Date Provider Last Modified By Organization Details Last Modified Time Details Appointments None recorde d. Lab prolact in, serum 2022 023 [facility], [address] [place], [address], 3 14:22:40 TSH, serum, reflex free T4 2022 023 [facility], [address] [place], [address], 3 13:07:04 pregnan cy test, urine 2022 023 [email or web address] [facility], [address] [place], [address], 3 14:19:52 Referral None recorde d. Procedures None recorde d. Surgeries None recorde d. Imaging US, breast - mastalg ia and lumpy breast bilater al, on OCPs, fam Hx of Breast [place] [address] (Imaging), [address] [facility] [address], [place], [address], 3 14:24:19 Medication Orders None recorde d. Patient TargetsNo targets recorded. Patient InstructionsNo instructions recorded. Reason for Referral None Reported. Results Created Date Observation Date Name Description Value Unit Range Abnormal Flag Note LastModifiedBy Organization Detail LastModifiedTime 09/05/1909/04/2022 PROLA CTIN prolactin 11.6 NG/mL Refer ence Range s Femal e aged 18-Ad ult Nonpr egnan t: 2.8-2 9.2 ng/mL Pregn ant: 9.7-2 08.5 ng/mL Post- menop ausal : 1.8-2 0.3 ng/mL Pregn delia, lacta tion, and the admin istra tion of oral contr acept matt can incre ase prola ctin ninoska ntrat ions. [place], [address], 09/04/2022 14:22:40 09/06/19 23 09/05/2022 T4, FREE T4, free 0.98 NG/dL 0.89 - 1.76 normal [place], [address], 09/05/2022 13:07:04 09/06/19 23 09/04/2022 TSH W/ REFLE X TSH 0.49 mIU/L 0.55 - 4.78 low Refer ence Range Femal e aged 18-Ad ult: 0.55- 4.78 Pregn delia Refer ence Range s First Trime ster 0.26- 2.66 Secon d Trime ster 0.55- 2.73 Third Trime ster 0.43- 2.91 [place], [address], 09/05/2022 13:07:04 09/03/19 23 09/02/2022 pregn delia test, urine HCG negati ve Not Available [facility] [address] [place], [address], 09/02/2022 17:07:06 Result Notes None recorded. Medical Equipment None Reported. Allergies No known drug allergies Medications Name Sig Start Date Stop Date Status Note LastModified by Organization Details LastModified Time ibuprofen 800 mg tablet TAKE 1 TABLET BY MOUTH EVERY 8 HOURS WITH FOOD NEEDED 09/02 completed Not Available Not Available Not Available quetiapine 100 mg tablet TAKE 1 TABLET BY MOUTH AT BEDTIME ALONG WITH A 50 MG TABLET DIRECTED FOR 90 DAYS active Not Available Not Available No t Available amoxicillin 875 mg tablet TAKE 1 TABLET BY MOUTH EVERY 12 HOURS FOR 10 DAYS 09/02 completed Not Available Not Available Not Available cephalexin 500 mg capsule TAKE 1 CAPSULE BY MOUTH EVERY 12 HOURS FOR 5 DAYS 09/02 completed Not Available Not Available Not Available nitrofurant oin monohydrate /macrocryst als 100 mg capsule TAKE 1 CAPSULE BY MOUTH EVERY 12 HOURS FOR 5 DAYS 09/02 completed Not Available Not Available Not Available quetiapine 50 mg tablet TAKE 1 TABLET BY MOUTH AT BEDTIME ALONG WITH A 100MG TABLET DIRECTED FOR 90 DAYS active Not Available Not Available No t Available Blisovi Fe /20 (28) 1 mg-20 mcg (21)/75 mg (7) tablet TAKE 1 TABLET BY MOUTH EVERY DAY active Not Available Not Available No t Available Vitals Date Recorded Body height Body mass index (BMI) Body weight Body temperature Provider Name and Address Organization Details Last Updated DateTime 09/02/2022 167.64 cm 23.4 kg/m2 41593.61 g 98.4 [degF] Linda Martinez [employer] [facility] 09/02/2022 16:17:24 Social History Question Answer Notes LastModified by Organizat ion Details LastModified Time Tobacco Smoking Status Never Smoker Linda Martinez [facility], [employer] [facility] 09/02/2022 16:03:06 How Many Years Have You Consumed Alcohol? 4 [email or web address] Information not available 09/02/2022 What Type Of Diet Are You Following? REGULAR [email or web address] Information not available 09/02/2022 Which Illicit Or Recreational Drugs Have You Used? Marijuana [email or web address] Information not available 09/02/2022 What Is Your Relationship Status? Single [email or web address] Information not available 09/02/2022 Are You Sexually Active? Yes [email or web address] Information not available 09/02/2022 Sex: Unknown Functional Status Question Answer Note LastModified by Organizat ion Details LastModified Time What is your level of alcohol consumption? Occasional [email or web address] Information not available 09/02/2022 Do you or have you ever used e-cigarettes or vape? Current user of electronic cigarettes [email or web address] Information not available 09/02/2022 What is your exercise level? Moderate [email or web address] Information not available 09/02/2022 Mental Status None recorded. Family History Relationship Description Onset Age of this Age Resolved Age Notes LastModified by Organization Details LastModified Time Father Myocardial infarction [email or web address] Not available 0 09/02/2022 16:02:53 Maternal Grandfather Malignant neoplasm of lung [email or web address] Not available 16:02:54 Paternal Grandmother Malignant tumor of breast [email or web address] Not available 16:02:54 Paternal Grandmother Malignant neoplastic disease [email or web address] Not available 16:02:54 Medical History Condition Response Anxiety Disorder Y Bipolar Disorder Y Gynecological History Statement/Question Response Flow Moderate Date of LMP 07/28/2922 Frequency of Cycle (Q days) Depends Duration of Flow (days) 3-4 Current Control Method BCPs Age at Menarche 14 Obstetrics History GPAL:G 0 P 0 0 0 0 Past Encounters Encounter ID Performer Location Encounter Start Date Encounter Closed Date Diagnosis/Indication Diagnosis SNOMED-CT Code Diagnosis ICD10 Code Diagnosis Note [id number] JAYDEN GALAVIZ MD [facility] h [address] [facility] [place] [address] 09/02/2022 15:47:46 09/03/2022 16:30:26 Pain of right breast 6294767387 N64.4 Health Concerns Section Related Observation LastModified by Organization Detai ls LastModified Time None Recorded Concern Status LastModified by Organization Details LastModified Time None Recorded Advance Directives Directive None Recorded Payers Insurance Date Sequence Insurance Name Policy Number Policy Malcolm Covered Member ID Malcolm Member ID Guarantor Name 04/18/2023 1 [place] Tati Hong [id number] Tati Hong 01/13/2024 1 [facility] (MEDICAID REPLACEMENT - HMO) [id number] Tati Hong [id number] Tati Hong Notes Date Note Type Note Provider Name and Address Organization Details Recorded Time 09/02/2022 text/html Pt presents as new patient. Pt is here for breast lumps that is tender and painful on her right breast. Pt primary care doctor Aditya in [place], [place]. Pt signed medical release form today to establish care with us. On Seroquel for BPD x 1 yearOn Blisovi 06/21- on continuous OCPs since 1.5 years ago.No barriers.LMP 07/2021. JAYDEN LAMA MD [address] [facility], [place], [address], [facility] - ON LICENSE OF [facility] IV 12/02/2022 14:20:05 OBGyn Episode No OBEpisode recorded.
--- OUTSIDE RECORDS SUMMARY | 2024-11-17 12:39 | XMS_ITS | Referral Summary ---
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
[2024-11-17 12:42] LABS: Add Urine Microscopic? NO; Appearance Urine Clear (Clear); Bilirubin Urine Negative (Negative); Blood Urine Negative (Negative); Color Urine Yellow (Yellow); Glucose Urine UA Negative (Negative); Ketones Urine Negative (Negative); Leukocyte Esterase Ur Negative LEU/UL (Negative); Nitrate Urine Negative (Negative); Protein Urine Negative (Negative); Specific Grav Ur 1.007 (1.001-1.035); Urobilinogen Urine 0.2 mg/dL (<2.0); pH Urine 7.5 (5.0-9.0)
--- NOTE | 2024-11-17 12:51 | OBADM ---
This patient, Tati Hong, admitted to the OB room 115 for observation. Patient/family oriented to hospital policies and general routines including ID bracelet, bed and alarms, visiting hours, pain management, procedures, bathroom and other care routines, personal items, smoking policy, room service/diet, and visiting hours. Patient/Family are encouraged to report perceived risks to care and to ask questions if they do not understand what they are told or what they should do.
[2024-11-17] MEDS: NIFEdipine 10 MG CAPSULE PO ×2 (14:23→15:41)
--- OUTSIDE RECORDS SUMMARY | 2024-11-17 23:29 | XMS_ITS | Referral Summary ---
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
--- OUTSIDE RECORDS SUMMARY | 2024-11-17 23:29 | XMS_ITS | Clinical Summary ---
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
== END 2024-11-17 21:55 | disposition home or self-care (01) ==
PROVIDERS: Admitting Provider Obstetrics & Gynecology; PCP Family Medicine; Visit Provider Obstetrics & Gynecology
DX: O47.03 False labor before 37 completed weeks of gestation, third trimester (principal); Z3A.31 31 weeks gestation of pregnancy
CPT/HCPCS: 76815; 81003; 96372; A9270; G0378; G0379; J3105

== ENCOUNTER 2024-11-18 11:38 | Observation (INO) | payer SELFPAY ==
[2024-11-18] VITALS (23 sets, daily range): BP systolic 101–121; BP diastolic 58–74; PULSE 85–150; O2SAT 96–100; BMI 25.5
--- NOTE | 2024-11-18 11:38 | OBADM ---
This patient, Tati Hong, admitted to the OB room OB Post 116 for observation. Patient/family oriented to hospital policies and general routines including ID bracelet, bed and alarms, visiting hours, pain management, procedures, bathroom and other care routines, personal items, smoking policy, room service/diet, and visiting hours. Patient/Family are encouraged to report perceived risks to care and to ask questions if they do not understand what they are told or what they should do.
--- OUTSIDE RECORDS SUMMARY | 2024-11-18 12:29 | XMS_ITS | Referral Summary ---
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
--- OUTSIDE RECORDS SUMMARY | 2024-11-18 12:29 | XMS_ITS | Clinical Summary ---
Author Organization 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
[2024-11-18] MEDS: NIFEdipine 10 MG CAPSULE PO (13:37)
[2024-11-18] MEDS: TERBUTALINE SULFATE 1 MG/ML VIAL 0.25 MG SUB-Q (15:12)
--- NOTE | 2024-11-18 16:14 | PM.OBTRLD ---
OB - Triage/Final Diagnosis Visit Information Comments/Additional reasons for admission: I have assessed the risk for this patient, Tati Hong, and determined that she would benefit from observation care. Evaluation Vital signs: Vital Signs - 24 hr 11/18/24 12:15 11/18/24 12:31 11/18/24 12:45 Pulse Rate 88 85 90 Blood Pressure 107/65 101/67 113/73 Pulse Oximetry Oxygen Delivery 11/18/24 13:00 11/18/24 13:00 11/18/24 13:15 Pulse Rate 90 91 Blood Pressure 115/70 111/67 Pulse Oximetry Oxygen Delivery Room Air 11/18/24 13:30 11/18/24 13:45 11/18/24 14:00 Pulse Rate 150 H 92 91 Blood Pressure 113/71 111/69 121/74 Pulse Oximetry Oxygen Delivery 11/18/24 14:15 11/18/24 15:13 11/18/24 15:18 Pulse Rate 93 Blood Pressure 104/58 L Pulse Oximetry 97 97 Oxygen Delivery 11/18/24 15:23 11/18/24 15:28 11/18/24 15:33 Pulse Rate Blood Pressure Pulse Oximetry 100 100 100 Oxygen Delivery 11/18/24 15:36 11/18/24 15:41 11/18/24 15:47 Pulse Rate Blood Pressure Pulse Oximetry 100 100 96 Oxygen Delivery 11/18/24 15:52 11/18/24 15:57 11/18/24 16:02 Pulse Rate Blood Pressure Pulse Oximetry 98 99 100 Oxygen Delivery 11/18/24 16:07 11/18/24 16:12 Pulse Rate Blood Pressure Pulse Oximetry 98 96 Oxygen Delivery
--- NOTE | 2024-11-26 10:52 | PM.OBTRLD ---
OB - Triage/Final Diagnosis Visit Information Date of evaluation: 11/25/24 Reason for evaluation: threatened labor Comments/Additional reasons for admission: I have assessed the risk for this patient, Tati Hong, and determined that she would benefit from observation care.
== END 2024-11-18 16:35 | disposition home or self-care (01) ==
PROVIDERS: Admitting Provider Obstetrics & Gynecology; PCP Family Medicine; Visit Provider Obstetrics & Gynecology
DX: O47.03 False labor before 37 completed weeks of gestation, third trimester (principal); Z3A.31 31 weeks gestation of pregnancy
CPT/HCPCS: 96372; A9270; G0378; G0379; J3105

== ENCOUNTER 2024-11-29 10:40 | Outpatient (CLI) | payer SELFPAY ==
--- OUTSIDE RECORDS SUMMARY | 2024-11-29 11:26 | XMS_ITS | Data Portability ---
Author Organization [employer] , [facility] Address [address] [place] [address] Assessment Encounter Date Assessment Date Assessment LastModified [...] d. Lab prolact in, serum 2022 023 [facility], [address] [place], [address], 3 14:22:40 TSH, serum, reflex free T4 2022 023 [facility], [address] [place] [address], [address], 3 13:07:04 pregnan cy test, urine 2022 023 [email or web address] [facility], [address] [place], [address], 3 14:19:52 Referral None recorde d. Procedures None recorde d. Surgeries None recorde d. Imaging US, breast - mastalg ia and lumpy breast bilater al, on OCPs, fam Hx of Breast [place] [address] (Imaging), [address], [place], [address], 3 14:24:19 Medication Orders None recorde d. [...] prola ctin ninoska ntrat ions. [place], [address], 09/04/2022 14:22:40 09/06/19 23 09/05/2022 T4, FREE T4, free 0.98 NG/dL 0.89 - 1.76 normal [place], [address], 09/05/2022 13:07:04 09/06/19 23 09/04/2022 TSH W/ REFLE X TSH 0.49 mIU/L 0.55 - 4.78 low Refer ence Range Femal e aged 18-Ad ult: 0.55- 4.78 Pregn delia Refer ence Range s First Trime ster 0.26- 2.66 Secon d Trime ster 0.55- 2.73 Third Trime ster 0.43- 2.91 [place], [address], 09/05/2022 13:07:04 09/03/19 23 09/02/2022 pregn delia test, urine HCG negati ve Not Available [facility] [address] [place], [address], 09/02/2022 17:07:06 Result Notes None recorded. Medical [...] Not Available No t Available Blisovi Fe 06/21 (28) 1 mg-20 mcg (21)/75 mg (7) tablet TAKE 1 TABLET BY MOUTH EVERY DAY active Not Available Not Available No t Available Vitals Date Recorded Body height Body mass index (BMI) Body weight Body temperature Provider Name and Address Organization Details Last Updated DateTime 09/02/2022 167.64 cm 23.4 kg/m2 20575.61 g 98.4 [degF] Linda Martinez [employer] [facility] 09/02/2022 16:17:24 Social History Question Answer Notes LastModified by Organizat ion Details LastModified Time Tobacco Smoking Status Never Smoker Linda lyons, [employer] [facility] 09/02/2022 16:03:06 How Many Years Have You Consumed Alcohol? 4 [email or web address] Information not available 09/02/2022 What Type Of Diet Are You Following? REGULAR [email or web address] Information not available 09/02/2022 Which Illicit Or Recreational Drugs Have You Used? Marijuana [email or web address] Information not available 09/02/2022 What Is Your Relationship Status? Single [email or web address] Information not available 09/02/2022 Are You Sexually Active? Yes [email or web address] Information not available 09/02/2022 Sex: Unknown Functional Status Question Answer Note LastModified by Organizat ion Details LastModified Time What is your level of alcohol consumption? Occasional [email or web address] Information not available 09/02/2022 Do you or have you ever used e-cigarettes or vape? Current user of electronic cigarettes [email or web address] Information not available 09/02/2022 What is your exercise level? Moderate [email or web address] Information not available 09/02/2022 Mental Status None recorded. Family History Relationship Description Onset Age of this Age Resolved Age Notes LastModified by Organization Details LastModified Time Father Myocardial infarction [email or web address] Not available 0 09/02/2022 16:02:53 Maternal Grandfather Malignant neoplasm of lung [email or web address] Not available 16:02:54 Paternal Grandmother Malignant tumor of breast [email or web address] Not available 16:02:54 Paternal Grandmother Malignant neoplastic disease [email or web address] Not available 16:02:54 Medical History Condition Response [...] SNOMED-CT Code Diagnosis ICD10 Code Diagnosis Note [id number] JAYDEN GALAVIZ MD [facility] h [address] [facility] [place] [address] 09/02/2022 15:47:46 09/03/2022 16:30:26 Pain of right breast [id number] N64.4 Health Concerns Section Related Observation LastModified by Organization Detai ls LastModified Time None Recorded Concern Status LastModified by Organization Details LastModified Time None Recorded Advance Directives Directive None Recorded Payers Insurance Date Sequence Insurance Name Policy Number Policy Malcolm Covered Member ID Malcolm Member ID Guarantor Name 04/18/2023 1 [place] Tati Hong [id number] Tati Hong 01/13/2024 1 [facility] (MEDICAID REPLACEMENT - HMO) [id number] Tati Hong [id number] Tati Hong Notes Date Note Type Note Provider Name and Address Organization Details Recorded Time 09/02/2022 text/html Pt presents as new patient. Pt is here for breast lumps that is tender and painful on her right breast. Pt primary care doctor Aditya in [place], [place]. Pt signed medical release form today to establish care with us. On Seroquel for BPD x 1 yearOn Blisovi 06/21- on continuous OCPs since 1.5 years ago.No barriers.LMP 07/2021. JAYDEN LAMA MD [address] [facility], [place], [address], [facility] IV 12/02/2022 14:20:05 OBGyn Episode No OBEpisode recorded.
--- OUTSIDE RECORDS SUMMARY | 2024-11-29 11:26 | XMS_ITS | Clinical Summary ---
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
--- OUTSIDE RECORDS SUMMARY | 2024-11-29 11:26 | XMS_ITS | Data Portability ---
Author Organization [facility] Address [address] [place] [place] [address] Care Team Providers Care Scraper Hand Name Role Phone RICKETTSMUSA Primary Care Provider Assessment Encounter Date Assessment Date Assessment LastModified by Organization Details LastModified Time 06/04/2024 06/04/2024 Patient is ___weeks . Discussed plan. Not available 06/04/2024 12:06:50 Plan of Treatment Reminders Order Date Submit Date Provider Last Modified By Organization Details Last Modified Time Details Appointments None recorded. Lab drug screen, urine 2024 025 [address], [place], [address], 5 11:09:53 test, urine 2023 024 [email or web address] [address], [address], [place], [address], 4 16:42:20 Referral None recorded. Procedures None recorded. Surgeries None recorded. Imaging US, obstetric, nuchal translucenc y 2024 025 [email or web address] Winn, [address], [address], [place], [address], 5 08:27:19 US, obstetric, 1st trimester 2024 025 [email or web address] [address], [address], [place], [address], 23:27:28 Medication Orders None recorded. Patient TargetsNo targets recorded. Patient InstructionsNo instructions recorded. Reason for Referral None Reported. Results Created Date Observation Date Name Description Value Unit Range Abnormal Flag Note LastModifiedBy Organization Detail LastModifiedTime 07/09/1907/09/2024 [UNIT Y] ANEUP LOIDY NIPT fraction 14.7% normal Not Available [facility] [address] [facility], [place], [address], 07/09/2024 02:12:33 07/09/1907/09/2024 [UNIT Y] ANEUP LOIDY NIPT 22Q11.2 microdeletio n LOW RISK <1 in 10,000 normal Not Available [facility] [address] [facility], [place], [address], 07/09/2024 02:12:33 07/09/19 25 07/09/2024 [UNIT Y] ANEUP LOIDY NIPT sex chromosome aneuploidy NOT DETECT ED normal Not Available [facility] [address] [facility], [place], [address], 07/09/2024 02:12:33 07/09/19 25 07/09/2024 [UNIT Y] ANEUP LOIDY NIPT monosomy X LOW RISK <1 in 10,000 normal Not Available [facility] [address] [place], [address], 07/09/2024 02:12:33 07/09/19 25 07/09/2024 [UNIT Y] ANEUP LOIDY NIPT trisomy 13 LOW RISK <1 in 10,000 normal Not Available [facility] [address] [facility], [place], [address], 07/09/2024 02:12:33 07/09/19 25 07/09/2024 [UNIT Y] ANEUP LOIDY NIPT trisomy 18 LOW RISK <1 in 10,000 normal Not Available [facility], [place], [address], 07/09/2024 02:12:33 07/09/19 25 07/09/2024 [UNIT Y] ANEUP LOIDY NIPT trisomy 21 LOW RISK <1 in 10,000 normal Not Available [facility] [address] [facility], [place], [address], 07/09/2024 02:12:33 07/09/19 25 07/09/2024 [UNIT Y] ANEUP LOIDY NIPT sex FEMALE normal Not Available [facility] [address] [facility], [place], [address], 07/09/2024 02:12:33 07/09/19 25 07/09/2024 [UNIT Y] ANEUP LOIDY NIPT gestation SINGLE TON normal Not Available [facility] [address] [facility], [place], [address], 07/09/2024 02:12:33 07/09/19 25 07/09/2024 [UNIT Y] ANEUP LOIDY NIPT for detailed report, see pdf See PDF normal Not Available [facility] [address] [facility], [place], [address], 07/09/2024 02:12:33 07/09/19 25 07/09/2024 [UNIT Y] RAFIA BRAVO CARD N sickle cell disease/beta -thalassemia /hemoglobino pathies carrier screen NEGATI VE normal Not Available [facility] [address] [facility], [place], [address], 07/09/2024 17:46:40 07/09/19 25 07/09/2024 [UNIT Y] RAFIA BRAVO CARD N alpha-thalas semia carrier screen NEGATI VE normal Not Available [facility] [address] [facility], [place], [address], 07/09/2024 17:46:40 07/09/19 25 07/09/2024 [UNIT Y] RAFIA CARD N cystic fibrosis carrier screen NEGATI VE normal Not Available [facility] [address], [place], [address], 07/09/2024 17:46:40 07/09/19 25 07/09/2024 [UNIT Y] RAFIA Lovett spinal muscular atrophy carrier screen NEGATI VE 2 SMN1 copies , SNP not presen t normal Not Available [facility] [address], [place], [address], 07/09/2024 17:46:40 07/09/19 25 07/09/2024 [UNIT Y] RAFIA Lovett for detailed report, see pdf See PDF normal Not Available [facility] [address], [place], [address], 07/09/2024 17:46:40 04/01/20 24 04/01/2024 SURGI KIMBERLY PATHO LOGY surgical pathology SEE RESULT S BELOW CASE REPOR T: Surgi kimberly Patho logy Repor t Case: [id number] Autho jagdeep Provi liza: Rick Roach MD Colle cted: 04/01 1652 Order ing Locat ion: [place] Patho logy Recei edmar: 04/02 0243 Patho logis t: Bill Tabares MD Speci men: ABBY Gamino ----- ----- ----- ----- ----- ----- ----- ----- ----- ----- ----- ----- ----- ----- ----- ----- ----- ---- FINAL DIAGN OSIS: ABBY Gamino: -High -grad e squam ous intra epith elial lori n (JUVENCIO- 2). -Faina ins free of [...] This test may be used for clini kmiberly purpo se. It shoul d not be [...] is label ed with luis nt's name, davidog noah underwood and ABBY . Recei edmar [...] ttes A1-A4 . Gross ed by My suggs Not Available [facility] (Lab) [address], [place], [address], 04/03/2024 11:51:00 04/01/20 24 04/01/2024 pregn delia test, urine HCG negati ve Not Available [place] [address], [place], [address], 04/01/2024 16:42:12 06/04/19 25 06/04/2024 CT/GC AND TRICH OMONA S VAGIN YASH (RRNA ), URINE chlamydia trachomatis, PCR Negati ve negati ve Not Available [facility] (Lab) [address], [place], [address], 06/05/2024 13:32:39 06/04/19 25 06/04/2024 CT/GC AND TRICH OMONA S VAGIN YASH (RRNA ), URINE neisseria gonorrhoeae, PCR Negati ve negati ve Not Available [facility] (Lab) [address], [place], [address], 06/05/2024 13:32:39 06/04/19 25 06/04/2024 CT/GC AND TRICH OMONA S VAGIN YASH (RRNA ), URINE trichomonas vaginalis ribosomal RNA (rrna) Negati ve negati ve Not Available [facility] (Lab) [address], [place], [address], 06/05/2024 13:32:39 06/29/19 25 06/29/2024 CBC W/DIF F WBC 10.9 10'3/ uL 3.5-10 .5 high Not Available [facility] (Lab) [address], [place], [address], 06/30/2024 10:37:37 06/29/19 25 06/29/2024 CBC W/DIF F RBC 3.94 10'6/ uL (based on docume nted legal sex) 3.80-5 .20 Not Available [facility] (Lab) [address] , [place], [address], 06/30/2024 10:37:37 06/29/19 25 06/29/2024 CBC W/DIF F HGB 12.5 g/dL (based on docume nted legal sex) 11.6-1 5.4 Not Available [facility] (Lab) [address] [facility], [place], [address], 06/30/2024 10:37:37 06/29/19 25 06/29/2024 CBC W/DIF F HCT 38.1 % (based on docume nted legal sex) 34.0-4 5.0 Not Available [facility] (Lab) [address] [facility], [place], [address], 06/30/2024 10:37:37 06/29/19 25 06/29/2024 CBC W/DIF F MCV 96.7 fL 80.0-9 9.0 Not Available [facility] (Lab) [address] [facility], [place], [address], 06/30/2024 10:37:37 06/29/19 25 06/29/2024 CBC W/DIF F MCH 31.7 pg 27.0-3 4.0 Not Available [facility] (Lab) [address] [facility], [place], [address], 06/30/2024 10:37:37 06/29/19 25 06/29/2024 CBC W/DIF F MCHC 32.8 g/dL 32.0-3 5.5 Not Available [facility] (Lab) [address] [facility], [place], [address], 06/30/2024 10:37:37 06/29/19 25 06/29/2024 CBC W/DIF F RDW 11.9 % 11.0-1 5.0 Not Available [facility] (Lab) [address] [facility], [place], [address], 06/30/2024 10:37:37 06/29/19 25 06/29/2024 CBC W/DIF F plt 251 10'3/ uL 150-40 0 Not Available [facility] (Lab) [address] [facility], [place], [address], 06/30/2024 10:37:37 06/29/19 25 06/29/2024 CBC W/DIF F MPV 11.5 fL 8.8-12 .1 Not Available [facility] (Lab) [address] [facility], [place], [address], 06/30/2024 10:37:37 06/29/19 25 06/29/2024 CBC W/DIF F neutrophils 75.8 % 34.0-7 3.0 high Not Available [facility] (Lab) [address] [facility], [place], [address], 06/30/2024 10:37:37 06/29/19 25 06/29/2024 CBC W/DIF F lymphocytes 15.5 % 15.0-5 0.0 Not Available [facility] (Lab) [address] [facility], [place], [address], 06/30/2024 10:37:37 06/29/19 25 06/29/2024 CBC W/DIF F monocytes 7.2 % 1.0-15 .0 Not Available [facility] (Lab) [address] [facility], [place], [address], 06/30/2024 10:37:37 06/29/19 25 06/29/2024 CBC W/DIF F eosinophils 0.6 % 0.0-8. 0 Not Available [facility] (Lab) [address] [facility], [place], [address], 06/30/2024 10:37:37 06/29/19 25 06/29/2024 CBC W/DIF F basophils 0.6 % 0.0-2. 0 Not Available [facility] (Lab) [address], [place], [address], 06/30/2024 10:37:37 06/29/19 25 06/29/2024 CBC W/DIF [...] separ ately if prese nt. Not Available [facility] (Lab) [address], [place], [address], 06/30/2024 10:37:37 06/29/19 25 06/29/2024 CBC W/DIF F absolute neutrophils 8.3 10'3/ uL 1.5-8. 0 high Not Available [facility] (Lab) [address], [place], [address], 06/30/2024 10:37:37 06/29/19 25 06/29/2024 CBC W/DIF F absolute lymphocytes 1.7 10'3/ uL 1.0-4. 0 Not Available [facility] (Lab) [address], [place], [address], 06/30/2024 10:37:37 06/29/19 25 06/29/2024 CBC W/DIF F absolute monocytes 0.8 10'3/ uL 0.2-1. 0 Not Available [facility] (Lab) [address], [place], [address], 06/30/2024 10:37:37 06/29/19 25 06/29/2024 CBC W/DIF F absolute eosinophils 0.1 10'3/ uL 0.0-0. 6 Not Available [facility] (Lab) [address], [place], [address], 06/30/2024 10:37:37 06/29/19 25 06/29/2024 CBC W/DIF F absolute basophils 0.1 10'3/ uL 0.0-0. 3 Not Available [facility] (Lab) [address], [place], [address], 06/30/2024 10:37:37 06/29/19 25 06/29/2024 CBC W/DIF F absolute immature granulocytes 0.0 10'3/ uL 0.00-0 .10 Refer ence range s for nonbi nary/ inter sex or unspe cifie d gende r patie nts have not been estab lishe d. Linda e refer to the follo wing table for range s estab lishe d for cisge nder patie nts and evalu ate in the clini kimberly lilia xt of the indiv idual patie nt: https ://la and book. nm.or g/Gen derX Not Available [facility] (Lab) [address], [place], [address], 06/30/2024 10:37:37 06/29/19 25 06/29/2024 HEPAT ITIS B SURFA CE ANTIG EN hepatitis B surface antigen Non-re active non-re active This assay was perfo rmed using [employer] ratio n reage nts and test kits. Value s obtai mandy with other assay metho ds or kits canno t be used inter hernandez eably . Not Available [facility] (Lab) [address], [place], [address], 06/30/2024 10:37:38 06/29/19 25 06/29/2024 HIV 1/2 ANTIG EN/AN TIBOD Y, REFLE X CONFI RMATI ON HIV antigen/anti body Nonrea ctive nonrea ctive HIV-1 antig en and HIV-1 /HIV- 2 antib odies were not detec chapo. No labor atory evide nce of HIV infec tion. Not Available [facility] (Lab) [address], [place], [address], 06/30/2024 10:37:38 06/29/19 25 06/29/2024 RUBEL LA IGG ANTIB CARLOS, QUANT rubella antibodies, IgG Reacti ve reacti ve Not Available [facility] (Lab) [address] [facility], [place], [address], 06/30/2024 10:37:39 06/29/19 25 06/29/2024 RUBEL LA IGG ANTIB CARLOS, QUANT rubella antibodies, IgG quant 40.8 IU/mL >=10 Non-r eacti ve (Non- Immun e) <10 IU/mL React julianne (Immu ne) > or = 10 IU/mL Not Available [facility] (Lab) [address] [facility], [place], [address], 06/30/2024 10:37:39 06/29/19 25 06/29/2024 TYPE/ RH/SC REEN ABO/Rh type A POS Not Available [facility] (Lab) [address] [facility], [place], [address], 06/30/2024 10:37:39 06/29/19 25 06/29/2024 TYPE/ RH/SC REEN antibody screen NEG Not Available [facility] (Lab) [address] [facility], [place], [address], 06/30/2024 10:37:39 06/29/19 25 06/29/2024 TYPE/ RH/SC REEN exp date 2024 23:59 Not Available [facility] (Lab) [address] [facility], [place], [address], 06/30/2024 10:37:39 06/29/19 25 06/29/2024 HEPAT ITIS C ANTIB CARLOS SCREE N, REFLE X TO CONFI RMATI ON hepatitis C antibody Non-re active non-re active Antib odies to HCV Not Detec chapo, does not exclu de the possi bilit y of expos ure to HCV. Not Available [facility] (Lab) [address], [place], [address], 06/30/2024 10:37:40 06/29/19 25 06/29/2024 HEMOG LOBIN A1C hemoglobin A1C 5.2 % 4.0-5. 6 The Ameri can [employer] lisa [employer] iatio n recom mends that a prima ry goal of thera py paul d be a HBA1C of < 7% and that physi cians shoul d reeva luate the treat ment regim en in patie nts with HBA1C value s consi stent ly > 8%. <5.7% Cyndee l 5.7 - 6.4% Incre ased risk for diabe lisa >=6.5 % Diagn ostic of diabe lisa <7.0% Goal of thera py >8.0% Actio n sugge sted Not Available [facility] (Lab) [address], [place], [address], 06/30/2024 10:37:40 06/29/19 25 06/29/2024 RPR SCREE N, REFLE X TITER /CONF IRMAT ION RPR screen Nonrea ctive nonrea ctive Not Available [facility] (Lab) [address] [place], [address], 06/30/2024 10:37:41 06/29/19 25 06/29/2024 CULTU RE: URINE result report SEE RESULT S BELOW Test: Cultu re: Urine Speci men Sourc e: Urine - Clean Catch Speci men Type: Urine Speci men Date: 2024 1305 Resul t Date: 2024 2154 Resul t Statu s: Final resul t Abnor mal: No Resul ting Lab: [facility] [address] [facility] [address] Tel: CULTU RE ----- ----- ----- --- No growt h in 1 day (dete ction level of 10,00 0 colon ies / ml.) Not Available [facility] (Lab) [address] , [place], [address], 06/30/2024 22:57:47 06/29/19 25 06/29/2024 drug scree n, urine Amphetamines : negati ve Not Available [address], [place], [address], 06/29/2024 11:09:23 06/29/19 25 06/29/2024 drug scree n, urine Cannabinoids : positi ve Not Available [address], [place], [address], 06/29/2024 11:09:23 06/29/19 25 06/29/2024 drug scree n, urine Cocaine: negati ve Not Available [address], [place], [address], 06/29/2024 11:09:23 06/29/19 25 06/29/2024 drug scree n, urine Opiates: negati ve Not Available [address], [place], [address], 06/29/2024 11:09:23 06/29/19 25 06/29/2024 drug scree n, urine Phenocyclidi ne: negati ve Not Available [address], [place], [address], 06/29/2024 11:09:23 06/29/19 25 06/29/2024 drug scree n, urine Barbiturates : negati ve Not Available [address], [place], [address], 06/29/2024 11:09:23 06/29/19 25 06/29/2024 drug scree n, urine Benzodiazepi humberto: negati ve Not Available [address], [place], [address], 06/29/2024 11:09:23 06/29/19 25 06/29/2024 drug scree n, urine Ethanol: negati ve Not Available [address], [place], [address], 06/29/2024 11:09:23 06/29/19 25 06/29/2024 drug scree n, urine Hallucinogen s: negati ve Not Available [address], [place], [address], 06/29/2024 11:09:23 06/29/19 25 06/29/2024 drug scree n, urine Inhalants: negati ve Not Available [address], [place], [address], 06/29/2024 11:09:23 06/29/19 25 06/29/2024 drug scree n, urine Anabolic Steroids: negati ve Not Available [address], [place], [address], 06/29/2024 11:09:23 06/04/19 25 06/04/2024 US, obste tric, 1st trime ster No observ ation record ed. [facility] [address], [place], [address], 06/04/2024 17:06:49 06/04/19 25 06/04/2024 US, obste tric, 1st trime ster No observ ation record ed. [email or web address] [address], [place], [address], 06/05/2024 13:04:52 06/29/19 25 06/29/2024 US, obste tric, nucha l trans lucen cy No observ ation record ed. [email or web address] [address], [place], [address], 06/29/2024 13:05:41 06/29/19 25 06/29/2024 US, obste tric, nucha l trans lucen cy No observ ation record ed. [email or web address] [address], [place], [address], 06/30/2024 09:21:23 Result Notes None recorded. Problems Name Problem SNOMED Code Status Onset Date Resolution Date Notes Provider Name and Address Organization Details Recorded Time Anxiety 61710264 Active 2020 Shanna lyons, [facility] 1 14:37:40 10744641 Active [address] [facility], [facility] 5 10:58:29 Bipolar disorder 26323775 Active quetiapine Keven Roach MD [address], [place], [address], [facility] 5 11:12:09 Problem Notes None recorded. Procedures Surgical History Date Name Laterality Status Provider Name and Address Organization Details Recorded Time 04/01/20 24 LEEP completed Keven Roach MD [address], [place], [address], [facility] 04/01/2024 18:24:41 04/01/20 24 LEEP completed Aliya Schaefer [facility] 06/04/2024 12:15:05 02/13/20 24 Colposcopy completed Keven Roach MD [address], [place], [address], [facility] 02/14/2024 13:06:32 02/13/20 24 Colposcopy completed Aliya Schaefer [facility] 02/13/2024 10:34:47 02/13/20 24 Colposcopy completed Aliya Schaefer [facility] 02/13/2024 10:34:39 12/31/19 24 Date of Last Pap Smear completed Aliya Schaefer [facility] 02/13/2024 10:00:52 Imaging Results None recorded. [...] Updated DateTime 06/04/2024 170.18 cm 21.8 kg/m2 61199.34 g 111 mm[Hg] 72 mm[Hg] Aliya [facility] 5 12:09:40 Date Recorded Body height Body mass index (BMI) Body weight Systolic blood pressure Diastolic blood pressure Provider Name and Address Organization Details Last Updated DateTime 06/29/2024 170.18 cm 22.1 kg/m2 20535.52 g 127 mm[Hg] 83 mm[Hg] Aliya [facility] 5 10:56:13 Date Recorded Body height Body mass index (BMI) Body weight Systolic blood pressure Diastolic blood pressure Provider Name and Address Organization Details Last Updated DateTime 04/01/2024 170.18 cm 21.1 kg/m2 10869.97 g 106 mm[Hg] 69 mm[Hg] Vanessa Mcintosh [facility] 4 16:40:30 Social History Question Answer Notes LastModified by Organizat ion Details LastModified Time Tobacco Smoking Status Current Every Day [facility] 06/16/2020 11:10:20 If You Are , What Was Your Level Of Alcohol Consumption Prior To ? None Information not available 06/16/2020 How Many Years Have You Consumed Alcohol? 2 Information not available 06/16/2020 Are You Blind Or Do You Have Difficulty Seeing? No [email or web address] Information n ot available 09/26/2020 What Is [...] Do You Have Serious Difficulty Hearing? No [email or web address] Information not available 09/26/2020 What Type Of Diet Are You Following? REGULAR Information n ot available 02/13/2024 Which Illicit Or Recreational Drugs Have You Used? Stevenson Information not available 06/16/2020 What Is The Highest Grade Or Level Of School You Have Completed Or The Highest Degree You Have Received? [id number] Information not available 02/13/2024 How Many Days [...] Date Was Tobacco Cessation Counseling Provided? 09/26/2020 [email or web address] Information not available 09/26/2020 How Many Years [...] 06/16/2020 Are you able to walk? [email or web address] Information not available 09/26/2020 What is your [...] anxious, or unable to sleep at night)? [id number] Information not available 02/13/2024 Family History Relationship Description Onset Age of this Age Resolved Age Notes LastModified by Organization Details LastModified Time Brother Asthma Not available 1 07/04/2019 10:54:09 Maternal Grandmother Carcinoma in situ of breast [email or web address] Not available 2024 10:15:15 Maternal Grandmother Diabetes mellitus Not available 2019 10:54:26 Maternal Grandmother Hypertensive disorder Not available 2019 10:54:34 Maternal Grandmother Carcinoma in situ of lung [email or web address] Not available 10:15:15 Mother Cyst of ovary [email or web address] Not available 2024 10:15:15 Medical History Condition Response Anxiety Disorder Y History of abnormal pap Y History of STI Y Gynecological History Statement/Question Response Abnormal Pap [...] SNOMED-CT Code Diagnosis ICD10 Code Diagnosis Note [id number] Guerita Earl , [facility] [address] [address] 05/03/2020 10:47:54 05/03/2020 11:38:26 Gynecologic examination 76242337 Z01.419 Take Calcium with Vitamin D 1200mg [...] nursing; switched from neurosurge on major. Oligomenorrhea 69616339 N91.5 Hx of irregular menses since menarche [...] Can discuss results/US /POC at upcoming visit. [id number] Guerita Earl , [facility] [address],[place] [address] 06/16/2020 10:51:57 06/16/2020 12:36:08 Venereal disease screening 751362596 Z11.3 RAPHAEL sent today Will call with results. Time spent in visit is a total of 15 mins with at least 50% of visit consisting of counseling and review of plan of care. [id number] Guerita Earl , [facility] [address],[place] [address] 05/16/2020 11:26:36 05/16/2020 13:21:41 Oligomenorrhea 36992063 N91.5 TVUS reviewed Labs wnl Likely oligomenor [...] counseling and review of plan of care. [id number] MD Yaritza Lgauna [address],[place] [address] 05/16/2020 11:26:57 05/16/2020 12:04:53 Oligomenorrhea 92037651 N91.5 [id number] Maryjo Martinez [facility] [address],[place] [address] 08/16/2020 14:08:36 08/16/2020 16:36:47 Pain in pelvis 82790370 R10.2 [id number] MD Yaritza Laguna [address],[place] [address] 08/16/2020 15:03:53 08/16/2020 15:39:25 Pain in pelvis 04132531 R10.2 [id number] MD Yaritza Laguna [address],[place] [address] 09/04/2020 16:28:07 09/05/2020 00:00:03 Pain in pelvis 42517590 R10.2 this patient is a 20-year-ol d female with pelvic pain who presents for follow-up after ultrasound . Her pain is improved. Her ultrasound is unremarkab le. We agreed to observe her pain. [id number] MD Yaritza Laguna [address],[place] [address] 09/26/2020 11:46:37 09/26/2020 12:43:41 Pain in pelvis 09950014 R10.2 This patient is 20-year-ol d female who has intense episodes of pelvic pain. She has had numerous episodes. Most recently it was it was provoked by intercours e. She had some bleeding that followed. Patient is amenorrhei c and she has progestero ne withdrawal bleeds. Her PCOS labs are normal. She have a pelvic ultrasound to see me quickly. [id number] MD Yaritza Laguna [address],[place] [address] 10/09/2020 15:29:37 10/09/2020 15:52:57 Pain in pelvis 72152323 R10.2 this patient is a 20-year-ol d female with pelvic pain who presents for follow-up after ultrasound . Her pain is improved. Her ultrasound is unremarkab le. We agreed to observe her pain. [id number] Keven Roach MD [facility] [address] [address] 10/09/2020 15:30:02 10/10/2020 16:18:10 Contraception care management [id number] Z30.9 Pain in pelvis [id number] R10.2 this patient is a 20-year-ol d [...] on. She will follow-up in 3 months. [id number] JEREMY Vale Winn [address] [address] 12/31/2023 12:36:09 12/31/2023 14:05:00 Gynecologic examination [id number] Z01.419 WWEpap updatedgc/ ct/trich testing added to [...] have been answered. Venereal d isease screening [id number] Z11.3 [facility] [id number] Z30.9 doing well on current OCP and desires to continuere fills sent, r/b/a reviewed, updated consent reviewed and signed by pt [id number] Keven Roach MD [facility] [address],[place] [address] 02/13/2024 09:55:39 02/16/2024 12:20:01 Screening procedure [id number] Z13.9 Abnormal c ervical Papanicolaou smear [id number] R87.619 cervical biopsies were performed. She has some aceto-whit e in the anterior transition zone. It was a satisfacto ry exam. To follow up on results. [id number] Keven Roach MD [facility] [address],[place] [address] 04/01/2024 16:24:49 04/05/2024 02:57:33 Screening procedure 50863057 Z13.9 Dysplasia of cervix 7339 1008 N87.9 LEEP procedure was performed. She tolerated it well. We will follow up on pathology results. [id number] Keven Roach MD [facility] [address],[place] [address] 06/04/2024 11:14:08 06/04/2024 12:57:06 Amenorrhea 92779435 N91.2 this patient is a 24-year-ol d [...] begin routine care at her next visit. [id number] Keven Roach MD [facility] [address],[place] [address] 06/04/2024 11:14:13 06/04/2024 11:53:17 screening [id number] Z36.87 Z3A.01 [id number] Keven Roach MD [facility] [address] [address] 06/29/2024 10:14:02 06/29/2024 10:45:22 screening 625929724 Z36.82 Z3A.11 [id number] Keven Roach MD [facility] [address] [address] 06/29/2024 10:14:48 06/29/2024 11:34:22 Routine care [id number] Z34.90 Health Concerns Section Related Observation LastModified by Organization Detai ls LastModified Time None Recorded Concern Status LastModified by Organization Details LastModified Time None Recorded Advance Directives Directive None Recorded Payers Insurance Date Sequence Insurance Name Policy Number Policy Malcolm Covered Member ID Malcolm Member ID Guarantor Name 06/04/2024 1 [employer] [id number] Tati Hong [id number] Tati Hong 05/19/2024 1 [employer] [id number] Tati Hong [id number] Tati Hong 04/01/2024 1 [facility] (MEDICAID HMO) [id number] Tati Hong [id number] Tati Hong 02/13/2024 SLIDING FEE SCHEDULE - DISCOUNT Tati Hong 09/23/2024 1 [facility] (PPO) [id number] Tati Hong [id number] Tati Hong Notes Date Note Type [...] proceed. Keven Roach MD [address], [place], [address], [facility] 04/01/2024 18:28:55 06/04/2024 text/html this patient [...] She was given recommendations on exercise, diet, [id number] medications. We reviewed her obstetric history. We reviewed her medical history. We reviewed her social history. She will begin routine care at her next visit. Keven Roach MD [address], [place], [address], [facility] 06/04/2024 12:49:44 OBGyn Episode Ob Episode Information Episode Created Date Number of Fetuses Patient Bloodtype Patient rh Status Prepregnancy Weight lbs Domestic Partner Domestic Partner Phone Father Name Printing Agent Status 06/29/19 25 1 A Positive OPEN Fetus Data First Name Last Name Admitted to NICU Weight (g) Sex Living Outcome Pediatric Complications Fetus ID Race Codes Race Delivery Type [id number] Problems Problem Notes Problem Name Start Date End Date Resolution Snomed Code Not e Bipolar disorder [id number] que tiapine Eitan Calculation Initial Eitan Date [...] Gestation 0 [email or web address] 06/29/2024 01/16/20 25 0 Pre- Flowsheet Flowsheet Date 06/29/2024 Irene Score Blood Edema Fundus Height Fundus Units Glucose Ketones Leukocytes Nitrite Labor Signs Protein Cervic Dilation Cervic Effacement Cervic Station Type Weight in lbs Pre/Post Dialysis Refused Weight [id number] BP Diastolic BP Location Tested BP Systolic [...]
--- OUTSIDE RECORDS SUMMARY | 2024-11-29 11:26 | XMS_ITS | Referral Summary ---
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
--- OUTSIDE RECORDS SUMMARY | 2024-11-29 11:26 | XMS_ITS | Data Portability ---
Author Organization [employer], Main Office Address [address] [place] [address] Care Team Providers Care Shoe Trimmer Name Role Phone LILIAM SOCRATES Primary Care [...] to quit. Cont f/u with Psych at [facility] as per schedule. Cont f/u with Gyne at [place] as per schedule. HM: WWE - 11/21, normal as per pt. Cont f/u with Gyne as per schedule. Flu - 02/27/22. Tdap, Gardasil - At . F/u in 2-3 weeks. Annual labs in 09/23. [email or web address] Not available 09/10/2022 11:48:36 10/01/2022 10/01/2022 24 [...] to quit. Cont f/u with Psych at [facility] as per schedule. Cont f/u with Gyne at [place] as per schedule. HM: WWE - 11/21, normal as per pt. Cont f/u with Gyne as per schedule. Flu - 02/27/22. Tdap, Gardasil - At HD. F/u in 3-6 months. Annual labs in 09/23. [email or web address] Not available 10/01/2022 11:40:27 Plan of Treatment Reminders Order Date Submit Date Provider Last Modified By Organization Details Last Modified Time Details Appointments None recorded. Lab vitamin D, 25-hydroxy, total, serum [address] (Lab), [address] [place], [address], 3 09:01:39 CBC w/ auto diff [address] [facility] (Lab), [address] [place], [address], 3 20:15:42 CMP, serum or plasma [address] [facility] (Lab), [address] [place], [address], 3 20:58:06 lipid panel, serum [address] [facility] (Lab), [address] [place], [address], 3 12:51:27 TSH, serum, reflex free T4 [address] (Lab), [address] [place], [address], 3 09:00:28 urinalysis complete, reflex culture [address] (Lab), [address] [place], [address], 3 09:00:50 Referral None recorded. Procedures None [...] 1.290 uIU/m L 0.465- 4.680 Not Available [facility] (Lab) [address] [place], [address], 10/03/2021 20:29:34 10/04/19 22 10/03/2021 VITAM IN D 25-HY DROXY [id number] 35.2 NG/mL 30-100 Vitam in D Statu s: Defic ient: <20 ng/mL Insuf ficie nt: 20-29 ng/mL Suffi cient : 30-10 0 ng/mL Not Available [facility] (Lab) [address] [place], [address], 10/03/2021 20:22:22 10/04/19 22 10/03/2021 URINA LYSIS COMPL ETE/I RIS W/RFX color yellow Not Available [facility] (Lab) [address] [place], [address], 10/03/2021 20:05:18 10/04/19 22 10/03/2021 URINA LYSIS COMPL ETE/I RIS W/RFX appear clear Not Available [facility] (Lab) [address] [place], [address], 10/03/2021 20:05:18 10/04/19 22 10/03/2021 URINA LYSIS COMPL ETE/I RIS W/RFX specific gravity 1.021 1.001- 1.030 Not Available [facility] (Lab) [address] [place], [address], 10/03/2021 20:05:18 10/04/19 22 10/03/2021 URINA LYSIS COMPL ETE/I RIS W/RFX pH 7.0 pH_un its 5.0-9. 0 Not Available [facility] (Lab) [address] [place], [address], 10/03/2021 20:05:18 10/04/19 22 10/03/2021 URINA LYSIS COMPL ETE/I RIS W/RFX leukocytes negati ve jennifer/u L negati ve- Not Available [facility] (Lab) [address] [place], [address], 10/03/2021 20:05:18 10/04/19 22 10/03/2021 URINA LYSIS COMPL ETE/I RIS W/RFX nitrite negati ve negati ve- Not Available [facility] (Lab) [address] [place], [address], 10/03/2021 20:05:18 10/04/19 22 10/03/2021 URINA LYSIS COMPL ETE/I RIS W/RFX protein 20 mg/dL negati ve- abnormal Not Available [facility] (Lab) [address] [place], [address], 10/03/2021 20:05:18 10/04/19 22 10/03/2021 URINA LYSIS COMPL ETE/I RIS W/RFX glucose normal mg/dL normal - Not Available [facility] (Lab) [address] [place], [address], 10/03/2021 20:05:18 10/04/19 22 10/03/2021 URINA LYSIS COMPL ETE/I RIS W/RFX ketones negati ve mg/dL negati ve- Not Available [facility] (Lab) [address] [place], [address], 10/03/2021 20:05:18 10/04/19 22 10/03/2021 URINA LYSIS COMPL ETE/I RIS W/RFX urobilinogen normal mg/dL normal - Not Available [facility] (Lab) [address] [place], [address], 10/03/2021 20:05:18 10/04/19 22 10/03/2021 URINA LYSIS COMPL ETE/I RIS W/RFX bilirubin negati ve mg/dL negati ve- Not Available [facility] (Lab) [address] [place], [address], 10/03/2021 20:05:18 10/04/19 22 10/03/2021 URINA LYSIS COMPL ETE/I RIS W/RFX blood negati ve mg/dL negati ve- Not Available [facility] (Lab) [address] [place], [address], 10/03/2021 20:05:18 10/04/19 22 10/03/2021 URINA LYSIS COMPL ETE/I RIS W/RFX white blood cells 0-8 /i??h pfi?? 0-8 Not Available [facility] (Lab) [address] [place], [address], 10/03/2021 20:05:18 10/04/19 22 10/03/2021 URINA LYSIS COMPL ETE/I RIS W/RFX red blood cells 0-4 /i??h pfi?? 0-4 Not Available [facility] (Lab) [address] [place], [address], 10/03/2021 20:05:18 10/04/19 22 10/03/2021 URINA LYSIS COMPL ETE/I RIS W/RFX bacteria none Not Available [facility] (Lab) [address] [place], [address], 10/03/2021 20:05:18 10/04/19 22 10/03/2021 URINA LYSIS COMPL ETE/I RIS W/RFX mucous few /i??l pfi?? abnormal Not Available [facility] (Lab) [address] [place], [address], 10/03/2021 20:05:18 10/04/19 22 10/03/2021 URINA LYSIS COMPL ETE/I RIS W/RFX squamous epithelial packed field /i??l pfi?? abnormal Not Available [facility] (Lab) [address] [place], [address], 10/03/2021 20:05:18 10/04/19 22 10/03/2021 URINA LYSIS COMPL ETE/I RIS W/RFX renal epithelial occasi onal /i??l pfi?? abnormal Not Available [facility] (Lab) [address] [place], [address], 10/03/2021 20:05:18 10/04/19 22 10/03/2021 LIPID PANEL cholesterol 194 mg/dL 140-19 9 NIH JORGE NSUS RECOM MENDA TION FOR MEAGAN STERO L: ADULT CHILD LOW RISK: <200 <170 BORDE RLINE : <200- 239 ----- HIGH RISK: >240 >200 Not Available [facility] (Lab) [address] [place], [address], 10/03/2021 19:57:48 10/04/19 22 10/03/2021 LIPID PANEL triglyceride s 77 mg/dL 0-150 NIH JORGE NSUS REPOR T RECOM MENDA TION FOR TRIGL YCERI EMMANUEL: ADULT CHILD LOW RISK: <150 ----- BODER LINE: 150-1 99 ----- HIGH RISK: >200 ----- Not Available [facility] (Lab) [address] [place], [address], 10/03/2021 19:57:48 10/04/19 22 10/03/2021 LIPID PANEL HDL cholesterol 77 mg/dL 40- Not Available [facility] (Lab) [address] [place], [address], 10/03/2021 19:57:48 10/04/19 22 10/03/2021 LIPID PANEL [...] NOT BE REPOR MARY CARMEN. Not Available [facility] (Lab) [address] [place], [address], 10/03/2021 19:57:48 10/04/19 22 10/03/2021 COMPR EHENS NOVA METAB OLIC PANEL sodium 138 mmol/ L 137-14 5 Not Available [facility] (Lab) [address] [place], [address], 10/03/2021 19:57:42 10/04/19 22 10/03/2021 COMPR EHENS NOVA METAB OLIC PANEL potassium 4.2 mmol/ L 3.5-5. 1 Not Available [facility] (Lab) [address] [place], [address], 10/03/2021 19:57:42 10/04/19 22 10/03/2021 COMPR EHENS NOVA METAB OLIC PANEL chloride 104 mmol/ L 98-107 Not Available [facility] (Lab) [address] [place], [address], 10/03/2021 19:57:42 10/04/19 22 10/03/2021 COMPR EHENS NOVA METAB OLIC PANEL carbon dioxide 28 mmol/ L 22-30 Not Available [facility] (Lab) [address] [place], [address], 10/03/2021 19:57:42 10/04/19 22 10/03/2021 COMPR EHENS NOVA METAB OLIC PANEL anion gap 10.2 mmol/ L 14-22 low Not Available [facility] (Lab) [address] [place], [address], 10/03/2021 19:57:42 10/04/19 22 10/03/2021 COMPR EHENS NOVA METAB OLIC PANEL glucose 83 mg/dL 70-99 Not Available [facility] (Lab) [address] [place], [address], 10/03/2021 19:57:42 10/04/19 22 10/03/2021 COMPR EHENS NOVA METAB OLIC PANEL BUN 10 mg/dL 8-19 Not Available [facility] (Lab) [address] [place], [address], 10/03/2021 19:57:42 10/04/19 22 10/03/2021 COMPR EHENS NOVA METAB OLIC PANEL creatinine 0.68 mg/dL 0.66-1 .25 Not Available [facility] (Lab) [address] [place], [address], 10/03/2021 19:57:42 10/04/19 22 10/03/2021 COMPR EHENS NOVA METAB OLIC PANEL GFR >60 Refer ence Range : [place] ge GFR Healt hy Adult : >60 [...] calcu lator is avail able on the [facility] websi te: https ://ww w.kid artur.o rg/pr ofess ional s/kdo qi/gf r_cal culat or Not Available [facility] (Lab) [address] [place], [address], 10/03/2021 19:57:42 10/04/19 22 10/03/2021 COMPR EHENS NOVA METAB OLIC PANEL alkaline phosphatase 63 U/L 38-126 Not Available [facility] (Lab) [address] [place], [address], 10/03/2021 19:57:42 10/04/19 22 10/03/2021 COMPR EHENS NOVA METAB OLIC PANEL alanine aminotransfe rase 16 U/L 0-35 Not Available [facility] (Lab) [address] [place], [address], 10/03/2021 19:57:42 10/04/19 22 10/03/2021 COMPR EHENS NOVA METAB OLIC PANEL aspartate aminotransfe rase 25 U/L 15-37 Not Available [facility] (Lab) [address] [place], [address], 10/03/2021 19:57:42 10/04/19 22 10/03/2021 COMPR EHENS NOVA METAB OLIC PANEL bilirubin, total 0.40 mg/dL 0.20-1 .30 Not Available [facility] (Lab) [address] [place], [address], 10/03/2021 19:57:42 10/04/19 22 10/03/2021 COMPR EHENS NOVA METAB OLIC PANEL calcium 9.7 mg/dL 8.4-10 .2 Not Available [facility] (Lab) [address] [facility] [place], [address], 10/03/2021 19:57:42 10/04/19 22 10/03/2021 COMPR EHENS NOVA METAB OLIC PANEL total protein 7.8 g/dL 6.3-8. 2 Not Available [facility] (Lab) [address] [place], [address], 10/03/2021 19:57:42 10/04/19 22 10/03/2021 COMPR EHENS NOVA METAB OLIC PANEL albumin 4.4 g/dL 3.4-5. 0 Not Available [facility] (Lab) [address] [place], [address], 10/03/2021 19:57:42 10/04/19 22 10/03/2021 COMPR EHENS NOVA METAB OLIC PANEL globulin 3.4 g/dL 2.6-4. 2 Not Available [facility] (Lab) [address] [place], [address], 10/03/2021 19:57:42 10/04/19 22 10/03/2021 COMPR EHENS NOVA METAB OLIC PANEL A/G ratio 1.3 ratio 1.0-2. 0 Not Available [facility] (Lab) [address] [place], [address], 10/03/2021 19:57:42 10/04/19 22 10/03/2021 CBC/C OMPLE TE BLD COUNT W/DIF F white blood cells 6.3 x10'3 /uL 4.2-10 .8 Not Available [facility] (Lab) [address] [place], [address], 10/03/2021 19:46:40 10/04/19 22 10/03/2021 CBC/C OMPLE TE BLD COUNT W/DIF F red blood cells 4.09 x10'6 /uL 3.80-5 .20 Not Available [facility] (Lab) [address] [place], [address], 10/03/2021 19:46:40 10/04/19 22 10/03/2021 CBC/C OMPLE TE BLD COUNT W/DIF F hemoglobin 13.4 g/dL 12.0-1 5.6 Not Available [facility] (Lab) [address] [place], [address], 10/03/2021 19:46:40 10/04/19 22 10/03/2021 CBC/C OMPLE TE BLD COUNT W/DIF F hematocrit 40.4 % 35.7-4 5.7 Not Available [facility] (Lab) [address] [place], [address], 10/03/2021 19:46:40 10/04/19 22 10/03/2021 CBC/C OMPLE TE BLD COUNT W/DIF F mean red cell volume 98.8 fL 82.0-9 9.0 Not Available [facility] (Lab) [address] [place], [address], 10/03/2021 19:46:40 10/04/19 22 10/03/2021 CBC/C OMPLE TE BLD COUNT W/DIF F mean red cell hemoglobin 32.8 pg 27.0-3 3.0 Not Available [facility] (Lab) [address] [place], [address], 10/03/2021 19:46:40 10/04/19 22 10/03/2021 CBC/C OMPLE TE BLD COUNT W/DIF F mean RBC HGB concentratio n 33.2 g/dL 31.0-3 6.0 Not Available [facility] (Lab) [address] [place], [address], 10/03/2021 19:46:40 10/04/19 22 10/03/2021 CBC/C OMPLE TE BLD COUNT W/DIF F red cell distribution width 12.1 % 11.8-1 5.5 Not Available [facility] (Lab) [address] [place], [address], 10/03/2021 19:46:40 10/04/19 22 10/03/2021 CBC/C OMPLE TE BLD COUNT W/DIF F platelets 229 x10'3 /uL 150-40 0 Not Available [facility] (Lab) [address] [place], [address], 10/03/2021 19:46:40 10/04/19 22 10/03/2021 CBC/C OMPLE TE BLD COUNT W/DIF F mean platelet volume 11.5 fL 9.0-12 .4 Not Available [facility] (Lab) [address] [place], [address], 10/03/2021 19:46:40 10/04/19 22 10/03/2021 CBC/C OMPLE TE BLD COUNT W/DIF F neutrophils 61.5 % 39.0-7 2.0 Not Available [facility] (Lab) [address] [place], [address], 10/03/2021 19:46:40 10/04/19 22 10/03/2021 CBC/C OMPLE TE BLD COUNT W/DIF F lymphocytes 26.8 % 16.0-4 7.0 Not Available [facility] (Lab) [address] [place], [address], 10/03/2021 19:46:40 10/04/19 22 10/03/2021 CBC/C OMPLE TE BLD COUNT W/DIF F monocytes 9.1 % 5.0-12 .0 Not Available [facility] (Lab) [address] [place], [address], 10/03/2021 19:46:40 10/04/19 22 10/03/2021 CBC/C OMPLE TE BLD COUNT W/DIF F eosinophils 1.6 % 1.0-7. 0 Not Available [facility] (Lab) [address] [place], [address], 10/03/2021 19:46:40 10/04/19 22 10/03/2021 CBC/C OMPLE TE BLD COUNT W/DIF F basophils 0.8 % 0.0-2. 0 Not Available [facility] (Lab) [address] [place], [address], 10/03/2021 19:46:40 10/04/19 22 10/03/2021 CBC/C OMPLE TE BLD COUNT W/DIF F immature granulocytes 0.2 % 0.00-0 .50 Not Available [facility] (Lab) [address] [place], [address], 10/03/2021 19:46:40 10/04/19 22 10/03/2021 CBC/C OMPLE TE BLD COUNT W/DIF F neutrophils, absolute count 3.87 x10'3 /uL 1.5-8. 0 Not Available [facility] (Lab) [address] [place], [address], 10/03/2021 19:46:40 10/04/19 22 10/03/2021 CBC/C OMPLE TE BLD COUNT W/DIF F lymphocytes, absolute count 1.68 x10'3 /uL 1.07-3 .43 Not Available [facility] (Lab) [address] [place], [address], 10/03/2021 19:46:40 10/04/19 22 10/03/2021 CBC/C OMPLE TE BLD COUNT W/DIF F monocytes, absolute count 0.57 x10'3 /uL 0.29-0 .99 Not Available [facility] (Lab) [address] [place], [address], 10/03/2021 19:46:40 10/04/19 22 10/03/2021 CBC/C OMPLE TE BLD COUNT W/DIF F eosinophils, absolute count 0.10 x10'3 /uL 0.02-0 .53 Not Available [facility] (Lab) [address] [place], [address], 10/03/2021 19:46:40 10/04/19 22 10/03/2021 CBC/C OMPLE TE BLD COUNT W/DIF F basophils, absolute count 0.05 x10'3 /uL 0.01-0 .08 Not Available [facility] (Lab) [address] [place], [address], 10/03/2021 19:46:40 10/04/19 22 10/03/2021 CBC/C OMPLE TE BLD COUNT W/DIF F immature granulocytes ,absolute 0.01 x10'3 /uL 0.00-0 .05 Not Available [facility] (Lab) [address] [place], [address], 10/03/2021 19:46:40 10/04/19 22 10/03/2021 CBC/C OMPLE TE BLD COUNT W/DIF F nucleated red blood cells 0.0 % -0 Not Available [facility] (Lab) [address] [place], [address], 10/03/2021 19:46:40 10/04/19 22 10/03/2021 CBC/C OMPLE TE BLD COUNT W/DIF F NRBC# 0.00 x10'3 /uL Not Available [facility] (Lab) [address] [place], [address], 10/03/2021 19:46:40 09/25/19 23 09/24/2022 CBC/C OMPLE TE BLD COUNT W/DIF F white blood cells 6.5 x10'3 /uL 4.2-10 .8 Not Available [facility] (Lab) [address] [place], [address], 09/24/2022 20:15:42 09/25/19 23 09/24/2022 CBC/C OMPLE TE BLD COUNT W/DIF F red blood cells 4.05 x10'6 /uL 3.80-5 .20 Not Available [facility] (Lab) [address] [place], [address], 09/24/2022 20:15:42 09/25/19 23 09/24/2022 CBC/C OMPLE TE BLD COUNT W/DIF F hemoglobin 13.2 g/dL 12.0-1 5.6 Not Available [facility] (Lab) [address] [place], [address], 09/24/2022 20:15:42 09/25/19 23 09/24/2022 CBC/C OMPLE TE BLD COUNT W/DIF F hematocrit 39.9 % 35.7-4 5.7 Not Available [facility] (Lab) [address] [place], [address], 09/24/2022 20:15:42 09/25/19 23 09/24/2022 CBC/C OMPLE TE BLD COUNT W/DIF F mean red cell volume 98.5 fL 82.0-9 9.0 Not Available [facility] (Lab) [address] [place], [address], 09/24/2022 20:15:42 09/25/19 23 09/24/2022 CBC/C OMPLE TE BLD COUNT W/DIF F mean red cell hemoglobin 32.6 pg 27.0-3 3.0 Not Available [facility] (Lab) [address] [place], [address], 09/24/2022 20:15:42 09/25/19 23 09/24/2022 CBC/C OMPLE TE BLD COUNT W/DIF F mean RBC HGB concentratio n 33.1 g/dL 31.0-3 6.0 Not Available [facility] (Lab) [address] [place], [address], 09/24/2022 20:15:42 09/25/19 23 09/24/2022 CBC/C OMPLE TE BLD COUNT W/DIF F red cell distribution width 11.9 % 11.8-1 5.5 Not Available [facility] (Lab) [address] [place], [address], 09/24/2022 20:15:42 09/25/19 23 09/24/2022 CBC/C OMPLE TE BLD COUNT W/DIF F platelets 219 x10'3 /uL 150-40 0 Not Available [facility] (Lab) [address] [place], [address], 09/24/2022 20:15:42 09/25/19 23 09/24/2022 CBC/C OMPLE TE BLD COUNT W/DIF F mean platelet volume 11.8 fL 9.0-12 .4 Not Available [facility] (Lab) [address] [place], [address], 09/24/2022 20:15:42 09/25/19 23 09/24/2022 CBC/C OMPLE TE BLD COUNT W/DIF F neutrophils 53.1 % 39.0-7 2.0 Not Available [facility] (Lab) [address] [place], [address], 09/24/2022 20:15:42 09/25/19 23 09/24/2022 CBC/C OMPLE TE BLD COUNT W/DIF F lymphocytes 32.5 % 16.0-4 7.0 Not Available [facility] (Lab) [address] [place], [address], 09/24/2022 20:15:42 09/25/19 23 09/24/2022 CBC/C OMPLE TE BLD COUNT W/DIF F monocytes 10.9 % 5.0-12 .0 Not Available [facility] (Lab) [address] [place], [address], 09/24/2022 20:15:42 09/25/19 23 09/24/2022 CBC/C OMPLE TE BLD COUNT W/DIF F eosinophils 2.3 % 1.0-7. 0 Not Available [facility] (Lab) [address] [place], [address], 09/24/2022 20:15:42 09/25/19 23 09/24/2022 CBC/C OMPLE TE BLD COUNT W/DIF F basophils 0.9 % 0.0-2. 0 Not Available [facility] (Lab) [address] [place], [address], 09/24/2022 20:15:42 09/25/19 23 09/24/2022 CBC/C OMPLE TE BLD COUNT W/DIF F immature granulocytes 0.3 % 0.00-0 .50 Not Available [facility] (Lab) [address] [place], [address], 09/24/2022 20:15:42 09/25/19 23 09/24/2022 CBC/C OMPLE TE BLD COUNT W/DIF F neutrophils, absolute count 3.47 x10'3 /uL 1.5-8. 0 Not Available [facility] (Lab) [address] [place], [address], 09/24/2022 20:15:42 09/25/19 23 09/24/2022 CBC/C OMPLE TE BLD COUNT W/DIF F lymphocytes, absolute count 2.12 x10'3 /uL 1.07-3 .43 Not Available [facility] (Lab) [address] [place], [address], 09/24/2022 20:15:42 09/25/19 23 09/24/2022 CBC/C OMPLE TE BLD COUNT W/DIF F monocytes, absolute count 0.71 x10'3 /uL 0.29-0 .99 Not Available [facility] (Lab) [address] [place], [address], 09/24/2022 20:15:42 09/25/19 23 09/24/2022 CBC/C OMPLE TE BLD COUNT W/DIF F eosinophils, absolute count 0.15 x10'3 /uL 0.02-0 .53 Not Available [facility] (Lab) [address] [place], [address], 09/24/2022 20:15:42 09/25/19 23 09/24/2022 CBC/C OMPLE TE BLD COUNT W/DIF F basophils, absolute count 0.06 x10'3 /uL 0.01-0 .08 Not Available [facility] (Lab) [address] [place], [address], 09/24/2022 20:15:42 09/25/19 23 09/24/2022 CBC/C OMPLE TE BLD COUNT W/DIF F immature granulocytes ,absolute 0.02 x10'3 /uL 0.00-0 .05 Not Available [facility] (Lab) [address] [place], [address], 09/24/2022 20:15:42 09/25/19 23 09/24/2022 CBC/C OMPLE TE BLD COUNT W/DIF F nucleated red blood cells 0.0 % -0 Not Available [facility] (Lab) [address] [place], [address], 09/24/2022 20:15:42 09/25/19 23 09/24/2022 CBC/C OMPLE TE BLD COUNT W/DIF F NRBC# 0.00 x10'3 /uL Not Available [facility] (Lab) [address] [place], [address], 09/24/2022 20:15:42 09/25/1909/24/2022 COMPR EHENS NOVA METAB OLIC PANEL sodium 137 mmol/ L 137-14 5 Not Available [facility] (Lab) [address] [place], [address], 09/24/2022 20:58:05 09/25/19 23 09/24/2022 COMPR EHENS NOVA METAB OLIC PANEL potassium 3.9 mmol/ L 3.5-5. 1 Not Available [facility] (Lab) [address] [place], [address], 09/24/2022 20:58:05 09/25/19 23 09/24/2022 COMPR EHENS NOVA METAB OLIC PANEL chloride 105 mmol/ L 98-107 Not Available [facility] (Lab) [address] [place], [address], 09/24/2022 20:58:05 09/25/19 23 09/24/2022 COMPR EHENS NOVA METAB OLIC PANEL carbon dioxide 24 mmol/ L 22-30 Not Available [facility] (Lab) [address] [place], [address], 09/24/2022 20:58:05 09/25/19 23 09/24/2022 COMPR EHENS NOVA METAB OLIC PANEL anion gap 11.9 mmol/ L 14-22 low Not Available [facility] (Lab) [address] [place], [address], 09/24/2022 20:58:05 09/25/19 23 09/24/2022 COMPR EHENS NOVA METAB OLIC PANEL glucose 90 mg/dL 70-99 Not Available [facility] (Lab) [address] [place], [address], 09/24/2022 20:58:05 09/25/19 23 09/24/2022 COMPR EHENS NOVA METAB OLIC PANEL BUN 10 mg/dL 8-19 Not Available [facility] (Lab) [address] [place], [address], 09/24/2022 20:58:05 09/25/19 23 09/24/2022 COMPR EHENS NOVA METAB OLIC PANEL creatinine 0.68 mg/dL 0.66-1 .25 Not Available [facility] (Lab) [address] [place], [address], 09/24/2022 20:58:05 09/25/19 23 09/24/2022 COMPR EHENS NOVA METAB OLIC PANEL GFR >60 Refer ence Range : [place] ge GFR Healt hy Adult : >60 [...] or ethni c subgr oups, such as Socrates nics. Outsi de the valid ated zelda [...] calcu lator is avail able on the F websi te: https :[email or web address] [email or web address] [email or web address].o rg/pr ofess ional s/kdo qi/gf r_cal culat or Not Available [facility] (Lab) [address] [place], [address], 09/24/2022 20:58:05 09/25/19 23 09/24/2022 COMPR EHENS NOVA METAB OLIC PANEL alkaline phosphatase 52 U/L 38-126 Not Available [facility] (Lab) [address] [facility] [place], [address], 09/24/2022 20:58:05 09/25/19 23 09/24/2022 COMPR EHENS NOVA METAB OLIC PANEL alanine aminotransfe rase 17 U/L 0-35 Not Available [facility] (Lab) [address] [place], [address], 09/24/2022 20:58:05 09/25/19 23 09/24/2022 COMPR EHENS NOVA METAB OLIC PANEL aspartate aminotransfe rase 23 U/L 15-37 Not Available [facility] (Lab) [address] [place], [address], 09/24/2022 20:58:05 09/25/19 23 09/24/2022 COMPR EHENS NOVA METAB OLIC PANEL bilirubin, total 0.50 mg/dL 0.20-1 .30 Not Available [facility] (Lab) [address] [place], [address], 09/24/2022 20:58:05 09/25/19 23 09/24/2022 COMPR EHENS NOVA METAB OLIC PANEL calcium 9.4 mg/dL 8.4-10 .2 Not Available [facility] (Lab) [address] [place], [address], 09/24/2022 20:58:05 09/25/19 23 09/24/2022 COMPR EHENS NOVA METAB OLIC PANEL total protein 7.5 g/dL 6.3-8. 2 Not Available [facility] (Lab) [address] [place], [address], 09/24/2022 20:58:05 09/25/19 23 09/24/2022 COMPR EHENS NOVA METAB OLIC PANEL albumin 4.5 g/dL 3.4-5. 0 Not Available [facility] (Lab) [address] [place], [address], 09/24/2022 20:58:05 09/25/19 23 09/24/2022 COMPR EHENS NOVA METAB OLIC PANEL globulin 3.0 g/dL 2.6-4. 2 Not Available [facility] (Lab) [address] [place], [address], 09/24/2022 20:58:05 09/25/19 23 09/24/2022 COMPR EHENS NOVA METAB OLIC PANEL A/G ratio 1.5 ratio 1.0-2. 0 Not Available [facility] (Lab) [address] [place], [address], 09/24/2022 20:58:05 09/25/19 23 09/24/2022 VITAM IN D 25-HY DROXY [id number] 38.3 NG/mL 30-100 Vitam in D Statu s: Defic ient: <20 ng/mL Insuf ficie nt: 20-29 ng/mL Suffi cient : 30-10 0 ng/mL Not Available [facility] (Lab) [address] [place], [address], 09/24/2022 21:20:31 09/25/1909/24/2022 TSH W/REF RUBA FT4 TSH with reflex free T4 1.530 uIU/m L 0.465- 4.680 Not Available [facility] (Lab) [address] [place], [address], 09/24/2022 21:22:45 09/25/19 23 09/24/2022 URINA LYSIS COMPL ETE/I RIS W/RFX color YELLOW Not Available [facility] (Lab) [address] [place], [address], 09/24/2022 21:25:58 09/25/19 23 09/24/2022 URINA LYSIS COMPL ETE/I RIS W/RFX appear TURBID abnormal Not Available [facility] (Lab) [address] [place], [address], 09/24/2022 21:25:58 09/25/19 23 09/24/2022 URINA LYSIS COMPL ETE/I RIS W/RFX specific gravity 1.020 1.001- 1.030 Not Available [facility] (Lab) [address] [place], [address], 09/24/2022 21:25:58 09/25/19 23 09/24/2022 URINA LYSIS COMPL ETE/I RIS W/RFX pH 7.0 pH_un its 5.0-9. 0 Not Available [facility] (Lab) [address] [place], [address], 09/24/2022 21:25:58 09/25/19 23 09/24/2022 URINA LYSIS COMPL ETE/I RIS W/RFX leukocytes NEGATI VE jennifer/u L negati ve- Not Available [facility] (Lab) [address] [place], [address], 09/24/2022 21:25:58 09/25/19 23 09/24/2022 URINA LYSIS COMPL ETE/I RIS W/RFX nitrite NEGATI VE negati ve- Not Available [facility] (Lab) [address] [place], [address], 09/24/2022 21:25:58 09/25/19 23 09/24/2022 URINA LYSIS COMPL ETE/I RIS W/RFX protein NEGATI VE mg/dL negati ve- Not Available [facility] (Lab) [address] [place], [address], 09/24/2022 21:25:58 09/25/19 23 09/24/2022 URINA LYSIS COMPL ETE/I RIS W/RFX glucose NORMAL mg/dL normal - Not Available [facility] (Lab) [address] [place], [address], 09/24/2022 21:25:58 09/25/19 23 09/24/2022 URINA LYSIS COMPL ETE/I RIS W/RFX ketones NEGATI VE mg/dL negati ve- Not Available [facility] (Lab) [address] [place], [address], 09/24/2022 21:25:58 09/25/19 23 09/24/2022 URINA LYSIS COMPL ETE/I RIS W/RFX urobilinogen NORMAL mg/dL normal - Not Available [facility] (Lab) [address] [facility] [place], [address], 09/24/2022 21:25:58 09/25/19 23 09/24/2022 URINA LYSIS COMPL ETE/I RIS W/RFX bilirubin NEGATI VE mg/dL negati ve- Not Available [facility] (Lab) [address] [facility] [place], [address], 09/24/2022 21:25:58 09/25/19 23 09/24/2022 URINA LYSIS COMPL ETE/I RIS W/RFX blood NEGATI VE mg/dL negati ve- Not Available [facility] (Lab) [address] [place], [address], 09/24/2022 21:25:58 09/25/19 23 09/24/2022 URINA LYSIS COMPL ETE/I RIS W/RFX white blood cells 0-8 /i??h pfi?? 0-8 Not Available [facility] (Lab) [address] [place], [address], 09/24/2022 21:25:58 09/25/19 23 09/24/2022 URINA LYSIS COMPL ETE/I RIS W/RFX red blood cells 0-4 /i??h pfi?? 0-4 Not Available [facility] (Lab) [address] [place], [address], 09/24/2022 21:25:58 09/25/19 23 09/24/2022 URINA LYSIS COMPL ETE/I RIS W/RFX bacteria NONE Not Available [facility] (Lab) [address] [place], [address], 09/24/2022 21:25:58 09/25/19 23 09/24/2022 URINA LYSIS COMPL ETE/I RIS W/RFX mucous OCCASI ONAL /i??l pfi?? abnormal Not Available [facility] (Lab) [address] [place], [address], 09/24/2022 21:25:58 09/25/19 23 09/24/2022 URINA LYSIS COMPL ETE/I RIS W/RFX squamous epithelial MANY /i??l pfi?? abnormal Not Available [facility] (Lab) [address] [place], [address], 09/24/2022 21:25:58 09/25/19 23 09/24/2022 URINA LYSIS COMPL ETE/I RIS W/RFX budding yeast PACKED FIELD /i??h pfi?? abnormal Not Available [facility] (Lab) [address] [place], [address], 09/24/2022 21:25:58 Result Notes None recorded. Problems Name Problem SNOMED Code Status Onset Date Resolution Date Notes Provider Name and Address Organization Details Recorded Time Impacted cerumen of bilateral ears 7493859807238 108 Active 2019 Not Available [employer] 3 22:23:24 Bipolar disorder 84389362 Active 2021 Not Available [employer] 3 22:23:24 History of anxiety state 009788638 Active 2019 Not Available [employer] 3 22:23:24 Mood disorder 83917222 Active 2021 Not Available [facility] 3 22:23:24 Vaping Active 2022 Socrates Burgess MD [address], [place], [address] , [employer] 3 11:39:56 Problem Notes None recorded. Procedures Surgical History Date Name Laterality Status Provider Name and Address Organization Details Recorded Time 3 Smoking Cessation completed Socrates Burgess MD [address], [place], [address], [employer] 09/10/2022 11:35:20 Imaging Results None recorded. Procedure [...] Updated DateTime 3 172.72 cm 22.2 kg/m2 18117.4 9 g 97.8 [degF] 94 /min 98 % 98 % 16 /min 122 mm[Hg] 74 mm[Hg] Layne Hartman RN [facility] [employer] 3 11:38:13 Date Recorded Body height Body mass index (BMI) Body weight Body temperature Heart rate Respiratory rate Systolic blood pressure Diastolic blood pressure Provider Name and Address Organization Details Last Updated DateTime 3 172.72 cm 22.2 kg/m2 96492.4 9 g 98 [degF] 88 /min 16 /min 120 mm[Hg] 78 mm[Hg] Layne Hartman RN [facility] [employer] 3 11:35:17 Date Recorded Body mass index (BMI) Body height Oxygen saturation Oxygen saturation in Arterial blood by Pulse oximetry Heart rate Respiratory rate Body temperature Body weight Systolic blood pressure Diastolic blood pressure Provider Name and Address Organization Details Last Updated DateTime 2 20.2 kg/m2 172.72 cm 99 % 99 % 88 /min 16 /min 98.2 [degF] 16493.1 4 g 118 mm[Hg] 80 mm[Hg] Not Available [facility] 3 22:23:11 Date Recorded Body mass index (BMI) Body height Oxygen saturation Oxygen saturation in Arterial blood by Pulse oximetry Heart rate Respiratory rate Body temperature Body weight Systolic blood pressure Diastolic blood pressure Provider Name and Address Organization Details Last Updated DateTime 2 22 kg/m2 172.72 cm 99 % 99 % 78 /min 18 /min 98.7 [degF] 66541.8 9 g 120 mm[Hg] 72 mm[Hg] Not Available [facility] 22:23:11 Social History Question Answer Notes LastModified by Organizat ion Details LastModified Time Tobacco Smoking Status Never Smoker Not Available [facility] 07/31/2022 22:22:43 Do You Have An Advance Directive? Yes MIGRATION.[id number] 026 Information not available 07/31/2022 Do You Wear A Helmet When Biking? Yes MIGRATION.5679868 026 Information not available 07/31/2022 What Is Your Level Of Caffeine Consumption? Heavy MIGRATION.0359072 026 Information not available 07/31/2022 In The 14 Days Before Symptom Onset, Have You Had Close Contact With A Laboratory-confirm ed COVID-19 While That Case Was Ill? No MIGRATION.8381199 026 Information not available 07/31/2022 In The 14 Days Before Symptom Onset, Have You Had Close Contact With A Person Who Is Under Investigation For COVID-19 While That Person Was Ill? No MIGRATION.0642925 026 Information not available 07/31/2022 What Type Of Diet Are You Following? REGULAR MIGRATION.1172248 026 Information not available 07/31/2022 What Is The Highest Grade Or Level Of School You Have Completed Or The Highest Degree You Have Received? CM38001-3 MIGRATION.0594481 026 Information not available 07/31/2022 Have There Been Any Changes To Your Family Or Social Situation? No MIGRATION.1310152 026 Information not available 07/31/2022 What Is The Fluoride Status Of Your Home? Unknown MIGRATION.1279802 026 Information not available 07/31/2022 Are There Any Guns Present In Your Home? No MIGRATION.8555029 026 Information not available 07/31/2022 Do You Use Insect Repellent Routinely? Yes MIGRATION.8970345 026 Information not available 07/31/2022 Where Do You Live? [place] MIGRATION .0498479 026 Information not available 07/31/2022 Do You Have A Medical Power Of Career Professional? Yes MIGRATION.6354878 026 Information not available 07/31/2022 Have You Ever Been Counseled For Unhealthy Alcohol Use? No MIGRATION.7588067 026 Information not available 07/31/2022 Do You Have Any Pets? Yes MIGRATION.5301492 026 Information not available 07/31/2022 What Is Your Relationship Status? Single MIGRATION.1312924 026 Information not available 07/31/2022 Do You Use Your Seat Belt Or Car Seat Routinely? Yes MIGRATION.1521598 026 Information not available 07/31/2022 Do You Have Smoke And Carbon Monoxide Detectors In Your Home? Yes MIGRATION.1731176 026 Information not available 07/31/2022 Are You Passively Exposed To Smoke? No MIGRATION.9091725 026 Information not available 07/31/2022 Are There Any Smokers In Your House? No MIGRATION.6542679 026 Information not available 07/31/2022 Do You Participate In Social Media? Yes MIGRATION.3725541 026 Information not available 07/31/2022 Do You Use Sunscreen Routinely? Yes MIGRATION.3708143 026 Information not available 07/31/2022 Has Tobacco Cessation Counseling Been Provided? Yes MIGRATION.0338228 026 Information not available 07/31/2022 Have You Recently Traveled Abroad? No MIGRATION.5690561 026 Information not available 07/31/2022 Are You Currently In School? Yes MIGRATION.5461597 026 Information not available 07/31/2022 Do You Have Any Dietary Restrictions? No MIGRATION.5565233 026 Information not available 07/31/2022 How Many Years Have You Used E-cigarettes Or Vape? 5 MIGRATION.8245903 026 Information not available 07/31/2022 Sex: Female Functional Status Question Answer Note LastModified by Organizat ion Details LastModified Time Do you use any illicit or recreational drugs? No MIGRATION.318124 8862 Information not available 07/31/2022 Do you or have you ever used any other forms of tobacco or nicotine? Yes MIGRATION.453419 8715 Information not available 07/31/2022 What is your level of alcohol consumption? Occasional MIGRATION.454075 0353 Information not available 07/31/2022 Do you or have you ever used smokeless tobacco? 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 Current user of electronic cigarettes MIGRATION.314383 2179 Information not available 07/31/2022 What is your exercise level? Heavy MIGRATION.787494 8589 Information not available 07/31/2022 Mental Status Question Answer Note LastModified by Organizat ion Details LastModified Time Do you feel stressed (tense, restless, nervous, or anxious, or unable to sleep at night)? [id number] MIGRATION.239953679 6 Information not available 07/31/2022 Family History Relationship Description Onset Age of this Age Resolved Age Notes LastModified by Organization Details LastModified Time Paternal Grandmother Family history of malignant neoplasm MIGRATION.148 [id number] Not available 07/31/2022 22:23:01 Maternal Grandmother Family history of malignant neoplasm MIGRATION.407 8419610 Not available 07/31/2022 22:23:01 Medical History Condition Response BLINDNESS N RHEUMATIC FEVER N KIDNEY STONES N BLADDER PROBLEMS N MRSA N OTHER # 1 N POLIO N LUNG DISEASE/DISORDER N HISTORY OF DRUG ABUSE N COPD N RADIATION / CHEMOTHERAPY N Other # 2 N BLOOD DISEASES N SURGERY N EAR OR HEARING PROBLEMS N MUMPS N SHINGLES N BOWEL PROBLEMS N FEMALE PROBLEMS / INFECTIONS N DEPRESSION (INCLUDING POST ) N STROKE/TIA N THYROID DISEASE N ULCERS N BENIGN PROSTATIC HYPERPLASIA N MEASLES N CERVICALGIA N TB SKIN TEST N HYPOTENSION N MYOCARDIAL INFARCTION N OBESITY N PARAPELGIA N GERD/NAUSEA N ANEURYSM N URINARY/BLADDER/KIDNEY PROBLEMS [...] HAVE YOU BEEN HOSPITALIZED OR SEEN IN [facility] IN THE PAST YEAR ? N [...] virus, quadrivalent, PF 02/27/2022 completed Not Available [facility] 3 22:24:11 Influenza, split virus, quadrivalent, PF 04/03/2020 completed Not Available [facility] 3 22:24:11 Past Encounters Encounter ID Performer Location Encounter Start Date Encounter Closed Date Diagnosis/Indication Diagnosis SNOMED-CT Code Diagnosis ICD10 Code Diagnosis Note [id number] Socrates Burgess MD [address] [address] 08/29/2021 00:00:00 08/29/2021 12:28:19 [id number] Socrates Burgess MD [address] [address] 10/03/2021 00:00:00 10/03/2021 12:30:12 [id number] Socrates Burgess MD [address] [address] 11/01/2021 00:00:00 11/01/2021 09:21:46 [id number] Socrates Burgess MD [address] [address] 02/27/2022 00:00:00 02/27/2022 16:07:51 [id number] Ericka Chester NP [facility] [address] [address] 09/24/2021 00:00:00 09/24/2021 17:15:40 [id number] Ericka Chester NP [facility] [address] [place] [address] [address] 10/22/2021 00:00:00 10/22/2021 11:13:27 [id number] Ericka Chester NP [facility] [address] [address] 11/19/2021 00:00:00 11/19/2021 10:55:01 [id number] Ericka Chester NP [facility] [address] [place] [address] [address] 01/15/2022 00:00:00 01/15/2022 11:28:16 [id number] Ericka Chester NP [facility] [address] [place] [address] [address] 02/28/2022 00:00:00 02/28/2022 18:37:43 [id number] Ericka Chester NP [facility] [address] [place] [address] [address] 05/01/2022 00:00:00 05/01/2022 11:51:17 [id number] Ericka Chester NP [facility] [address] [place] [address] [address] 08/20/2022 12:08:09 08/20/2022 15:30:41 [id number] Socrates Burgess MD [address] [address] 09/10/2022 11:30:50 09/10/2022 11:50:41 Adult health examination 943531706 Z00.00 Vaping 621358944 Z77.29 Bipolar disorder 4094776 4 F31.9 Screening for disorder 519565645 Z13.9 [id number] Socrates Burgess MD [facility]_[address] [address] 09/24/2022 10:25:36 09/24/2022 10:44:25 [id number] Socrates Burgess MD [facility]_[address] [address] 10/01/2022 11:26:57 10/01/2022 11:42:24 Vaping 989538714 Z77.29 Bipolar disorder 5065252 4 F31.9 History of anxiety state 959564328 F41.9 [id number] Ericka Chester NP [facility] [address] [address] 11/28/2022 10:57:12 11/28/2022 12:26:12 [id number] Ericka Chester NP [facility] [address] [address] 03/06/2023 15:57:06 03/06/2023 17:41:01 Health Concerns Section Related Observation LastModified by Organization Detai ls LastModified Time None Recorded Concern Status LastModified by Organization Details LastModified Time None Recorded Advance Directives Directive Y: Payers Insurance Date Sequence Insurance Name Policy Number Policy Malcolm Covered Member ID Malcolm Member ID Guarantor Name 07/24/2024 1 [facility] (MEDICAID REPLACEMENT - HMO) [id number] Tati Hong [id number] Tati Hong Notes Date Note Type Note Provider Name and Address Organization Details Recorded Time 09/10/2022 text/html Pt is here for her annual exam. Doing overall well. Denies any concerns.Pt is f/u with Psych for her mood and she is on Seroquel by them and is doing much better now. 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 PMH, and SH reviewed. Socrates Burgess MD [address] [facility], [facility] [address], [place], [address], [employer] [facility] 09/10/2022 11:49:42 10/01/2022 text/html Pt is here for f/u on her annual labs. Doing overall well. Denies any concerns.Pt is f/u with Psych for her mood and she is on Seroquel by them and is doing much better now. 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 Socrates Burgess MD [address], [place], [address], [employer] [facility] 10/01/2022 11:40:37 OBGyn Episode No OBEpisode recorded.
[2024-11-29 11:28] VITALS: BP 124/75; PULSE 81
== END 2024-11-29 12:07 ==
LOC: ANHOBOP 10:49 → ANHOBPP 10:49
PROVIDERS: PCP Family Medicine; Visit Provider Obstetrics & Gynecology
DX: O42.90 Premature rupture of membranes, unspecified as to length of time between rupture and onset of labor, unspecified weeks of gestation (principal); Z3A.00 Weeks of gestation of pregnancy not specified
CPT/HCPCS: 59025; 99199

== ENCOUNTER 2024-12-14 12:25 | Outpatient (CLI) | payer SELFPAY ==
--- OUTSIDE RECORDS SUMMARY | 2024-12-14 12:31 | XMS_ITS | Referral Summary ---
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
--- OUTSIDE RECORDS SUMMARY | 2024-12-14 12:31 | XMS_ITS | Data Portability ---
Author Organization [facility] Address [address] [place] [place] [address] [place] [address] Care Team Providers Care Director Of Claims Name Role Phone RICKETTSMUSA Primary Care Provider Assessment Encounter Date Assessment Date Assessment LastModified by Organization Details LastModified Time 06/04/2024 06/04/2024 Patient is ___weeks . Discussed plan. Not available 06/04/2024 12:06:50 Plan of Treatment Reminders Order Date Submit Date Provider Last Modified By Organization Details Last Modified Time Details Appointments None recorded. Lab drug screen, urine 2024 025 [address], [address], [place], [address], 5 11:09:53 test, urine 2023 024 [email or web address] [address], [address], [place], [address], 4 16:42:20 Referral None recorded. Procedures None recorded. Surgeries None recorded. Imaging US, obstetric, nuchal translucenc y 2024 025 [email or web address] [facility], [address], [address], [place], [address], 5 08:27:19 US, obstetric, 1st trimester 2024 025 [email or web address] [address], [address], [place], [address], 23:27:28 Medication Orders None recorded. Patient TargetsNo targets recorded. Patient InstructionsNo instructions recorded. Reason for Referral None Reported. Results Created Date Observation Date Name Description Value Unit Range Abnormal Flag Note LastModifiedBy Organization Detail LastModifiedTime 07/09/1907/09/2024 [UNIT Y] ANEUP LOIDY NIPT fraction 14.7% normal Not Available [facility] [address] [facility], [place], [address], 07/09/2024 02:12:33 07/09/1907/09/2024 [UNIT Y] ANEUP LOIDY NIPT 22Q11.2 microdeletio n LOW RISK <1 in 10,000 normal Not Available [facility] [address] [facility], [place], [address], 07/09/2024 02:12:33 07/09/19 25 07/09/2024 [UNIT Y] ANEUP LOIDY NIPT sex chromosome aneuploidy NOT DETECT ED normal Not Available [facility] [address] [facility], [place], [address], 07/09/2024 02:12:33 07/09/19 25 07/09/2024 [UNIT Y] ANEUP LOIDY NIPT monosomy X LOW RISK <1 in 10,000 normal Not Available [facility] [address] [place], [address], 07/09/2024 02:12:33 07/09/19 25 07/09/2024 [UNIT Y] ANEUP LOIDY NIPT trisomy 13 LOW RISK <1 in 10,000 normal Not Available [facility] [address] [facility], [place], [address], 07/09/2024 02:12:33 07/09/19 25 07/09/2024 [UNIT Y] ANEUP LOIDY NIPT trisomy 18 LOW RISK <1 in 10,000 normal Not Available [facility], [place], [address], 07/09/2024 02:12:33 07/09/19 25 07/09/2024 [UNIT Y] ANEUP LOIDY NIPT trisomy 21 LOW RISK <1 in 10,000 normal Not Available [facility] [address] [facility], [place], [address], 07/09/2024 02:12:33 07/09/19 25 07/09/2024 [UNIT Y] ANEUP LOIDY NIPT sex FEMALE normal Not Available [facility] [address] [facility], [place], [address], 07/09/2024 02:12:33 07/09/19 25 07/09/2024 [UNIT Y] ANEUP LOIDY NIPT gestation SINGLE TON normal Not Available [facility] [address] [facility], [place], [address], 07/09/2024 02:12:33 07/09/19 25 07/09/2024 [UNIT Y] ANEUP LOIDY NIPT for detailed report, see pdf See PDF normal Not Available [facility] [address] [facility], [place], [address], 07/09/2024 02:12:33 07/09/19 25 07/09/2024 [UNIT Y] RAFIA BRAVO CARD N sickle cell disease/beta -thalassemia /hemoglobino pathies carrier screen NEGATI VE normal Not Available [facility] [address] [facility], [place], [address], 07/09/2024 17:46:40 07/09/19 25 07/09/2024 [UNIT Y] RAFIA BRAVO CARD N alpha-thalas semia carrier screen NEGATI VE normal Not Available [facility] [address] [facility], [place], [address], 07/09/2024 17:46:40 07/09/19 25 07/09/2024 [UNIT Y] RAFIA CARD N cystic fibrosis carrier screen NEGATI VE normal Not Available [facility] [address], [place], [address], 07/09/2024 17:46:40 07/09/19 25 07/09/2024 [UNIT Y] RAFIA Lovett spinal muscular atrophy carrier screen NEGATI VE 2 SMN1 copies , SNP not presen t normal Not Available [facility] [address], [place], [address], 07/09/2024 17:46:40 07/09/19 25 07/09/2024 [UNIT Y] RAFIA Lovett for detailed report, see pdf See PDF normal Not Available [facility] [address], [place], [address], 07/09/2024 17:46:40 04/01/20 24 04/01/2024 SURGI KIMBERLY [...] Gross ed by My suggs Not Available [facility] (Lab) [address], [place], [address], 04/03/2024 11:51:00 04/01/20 24 04/01/2024 pregn delia test, urine HCG negati ve Not Available [place] [address], [place], [address], 04/01/2024 16:42:12 06/04/19 25 06/04/2024 CT/GC AND TRICH OMONA S VAGIN YASH (RRNA ), URINE chlamydia trachomatis, PCR Negati ve negati ve Not Available [facility] (Lab) [address], [place], [address], 06/05/2024 13:32:39 06/04/19 25 06/04/2024 CT/GC AND TRICH OMONA S VAGIN YASH (RRNA ), URINE neisseria gonorrhoeae, PCR Negati ve negati ve Not Available [facility] (Lab) [address], [place], [address], 06/05/2024 13:32:39 06/04/19 25 06/04/2024 CT/GC AND TRICH OMONA S VAGIN YASH (RRNA ), URINE trichomonas vaginalis ribosomal RNA (rrna) Negati ve negati ve Not Available [facility] (Lab) [address], [place], [address], 06/05/2024 13:32:39 06/29/19 25 06/29/2024 CBC W/DIF F WBC 10.9 10'3/ uL 3.5-10 .5 high Not Available [facility] (Lab) [address], [place], [address], 06/30/2024 10:37:37 06/29/19 25 06/29/2024 CBC W/DIF F RBC 3.94 10'6/ uL (based on docume nted legal sex) 3.80-5 .20 Not Available [facility] (Lab) [address] , [place], [address], 06/30/2024 10:37:37 06/29/19 25 06/29/2024 CBC W/DIF F HGB 12.5 g/dL (based on docume nted legal sex) 11.6-1 5.4 Not Available [facility] (Lab) [address] [facility], [place], [address], 06/30/2024 10:37:37 06/29/19 25 06/29/2024 CBC W/DIF F HCT 38.1 % (based on docume nted legal sex) 34.0-4 5.0 Not Available [facility] (Lab) [address] [facility], [place], [address], 06/30/2024 10:37:37 06/29/19 25 06/29/2024 CBC W/DIF F MCV 96.7 fL 80.0-9 9.0 Not Available [facility] (Lab) [address] [facility], [place], [address], 06/30/2024 10:37:37 06/29/19 25 06/29/2024 CBC W/DIF F MCH 31.7 pg 27.0-3 4.0 Not Available [facility] (Lab) [address] [facility], [place], [address], 06/30/2024 10:37:37 06/29/19 25 06/29/2024 CBC W/DIF F MCHC 32.8 g/dL 32.0-3 5.5 Not Available [facility] (Lab) [address] [facility], [place], [address], 06/30/2024 10:37:37 06/29/19 25 06/29/2024 CBC W/DIF F RDW 11.9 % 11.0-1 5.0 Not Available [facility] (Lab) [address] [facility], [place], [address], 06/30/2024 10:37:37 06/29/19 25 06/29/2024 CBC W/DIF F plt 251 10'3/ uL 150-40 0 Not Available [facility] (Lab) [address] [facility], [place], [address], 06/30/2024 10:37:37 06/29/19 25 06/29/2024 CBC W/DIF F MPV 11.5 fL 8.8-12 .1 Not Available [facility] (Lab) [address] [facility], [place], [address], 06/30/2024 10:37:37 06/29/19 25 06/29/2024 CBC W/DIF F neutrophils 75.8 % 34.0-7 3.0 high Not Available [facility] (Lab) [address] [facility], [place], [address], 06/30/2024 10:37:37 06/29/19 25 06/29/2024 CBC W/DIF F lymphocytes 15.5 % 15.0-5 0.0 Not Available [facility] (Lab) [address] [facility], [place], [address], 06/30/2024 10:37:37 06/29/19 25 06/29/2024 CBC W/DIF F monocytes 7.2 % 1.0-15 .0 Not Available [facility] (Lab) [address] [facility], [place], [address], 06/30/2024 10:37:37 06/29/19 25 06/29/2024 CBC W/DIF F eosinophils 0.6 % 0.0-8. 0 Not Available [facility] (Lab) [address] [facility], [place], [address], 06/30/2024 10:37:37 06/29/19 25 06/29/2024 CBC W/DIF F basophils 0.6 % 0.0-2. 0 Not Available [facility] (Lab) [address], [place], [address], 06/30/2024 10:37:37 06/29/19 25 06/29/2024 CBC W/DIF [...] separ ately if prese nt. Not Available [facility] (Lab) [address], [place], [address], 06/30/2024 10:37:37 06/29/19 25 06/29/2024 CBC W/DIF F absolute neutrophils 8.3 10'3/ uL 1.5-8. 0 high Not Available [facility] (Lab) [address], [place], [address], 06/30/2024 10:37:37 06/29/19 25 06/29/2024 CBC W/DIF F absolute lymphocytes 1.7 10'3/ uL 1.0-4. 0 Not Available [facility] (Lab) [address], [place], [address], 06/30/2024 10:37:37 06/29/19 25 06/29/2024 CBC W/DIF F absolute monocytes 0.8 10'3/ uL 0.2-1. 0 Not Available [facility] (Lab) [address], [place], [address], 06/30/2024 10:37:37 06/29/19 25 06/29/2024 CBC W/DIF F absolute eosinophils 0.1 10'3/ uL 0.0-0. 6 Not Available [facility] (Lab) [address], [place], [address], 06/30/2024 10:37:37 06/29/19 25 06/29/2024 CBC W/DIF F absolute basophils 0.1 10'3/ uL 0.0-0. 3 Not Available [facility] (Lab) [address], [place], [address], 06/30/2024 10:37:37 06/29/19 25 06/29/2024 CBC W/DIF [...] and book. nm.or g/Gen derX Not Available [facility] (Lab) [address], [place], [address], 06/30/2024 10:37:37 06/29/19 25 06/29/2024 HEPAT ITIS B SURFA CE ANTIG EN hepatitis B surface antigen Non-re active non-re active This assay was perfo rmed using [employer] ratio n reage nts and test kits. Value s obtai mandy with other assay metho ds or kits canno t be used inter hernandez eably . Not Available [facility] (Lab) [address], [place], [address], 06/30/2024 10:37:38 06/29/19 25 06/29/2024 HIV 1/2 ANTIG EN/AN TIBOD Y, REFLE X CONFI RMATI ON HIV antigen/anti body Nonrea ctive nonrea ctive HIV-1 antig en and HIV-1 /HIV- 2 antib odies were not detec chapo. No labor atory evide nce of HIV infec tion. Not Available [facility] (Lab) [address], [place], [address], 06/30/2024 10:37:38 06/29/19 25 06/29/2024 RUBEL LA IGG ANTIB CARLOS, QUANT rubella antibodies, IgG Reacti ve reacti ve Not Available [facility] (Lab) [address] [facility], [place], [address], 06/30/2024 10:37:39 06/29/19 25 06/29/2024 RUBEL LA IGG ANTIB CARLOS, QUANT rubella antibodies, IgG quant 40.8 IU/mL >=10 Non-r eacti ve (Non- Immun e) <10 IU/mL React julianne (Immu ne) > or = 10 IU/mL Not Available [facility] (Lab) [address] [facility], [place], [address], 06/30/2024 10:37:39 06/29/19 25 06/29/2024 TYPE/ RH/SC REEN ABO/Rh type A POS Not Available [facility] (Lab) [address] [facility], [place], [address], 06/30/2024 10:37:39 06/29/19 25 06/29/2024 TYPE/ RH/SC REEN antibody screen NEG Not Available [facility] (Lab) [address] [facility], [place], [address], 06/30/2024 10:37:39 06/29/19 25 06/29/2024 TYPE/ RH/SC REEN exp date 2024 23:59 Not Available [facility] (Lab) [address] [facility], [place], [address], 06/30/2024 10:37:39 06/29/19 25 06/29/2024 HEPAT ITIS C ANTIB CALROS SCREE N, REFLE X TO CONFI RMATI ON hepatitis C antibody Non-re active non-re active Antib odies to HCV Not Detec chapo, does not exclu de the possi bilit y of expos ure to HCV. Not Available [facility] (Lab) [address], [place], [address], 06/30/2024 10:37:40 06/29/19 25 06/29/2024 HEMOG LOBIN [...] >8.0% Actio n sugge sted Not Available [facility] (Lab) [address], [place], [address], 06/30/2024 10:37:40 06/29/19 25 06/29/2024 RPR SCREE N, REFLE X TITER /CONF IRMAT ION RPR screen Nonrea ctive nonrea ctive Not Available [facility] (Lab) [address] , [place], [address], 06/30/2024 10:37:41 06/29/19 25 06/29/2024 CULTU RE: URINE result report SEE RESULT S BELOW Test: Cultu re: Urine Speci men Sourc e: Urine - Clean Catch Speci men Type: Urine Speci men Date: 2024 1305 Resul t Date: 2024 2154 Resul t Statu s: Final resul t Abnor mal: No Resul ting Lab: [facility] [address] [facility] [address] Tel: CULTU RE ----- ----- ----- --- No growt h in 1 day (dete ction level of 10,00 0 colon ies / ml.) Not Available [facility] (Lab) [address] , [place], [address], 06/30/2024 22:57:47 06/29/19 25 06/29/2024 drug scree n, urine Amphetamines : negati ve Not Available [facility] [address], [place], [address], 06/29/2024 11:09:23 06/29/19 25 06/29/2024 drug scree n, urine Cannabinoids : positi ve Not Available [facility] [address], [place], [address], 06/29/2024 11:09:23 06/29/19 25 06/29/2024 drug scree n, urine Cocaine: negati ve Not Available [facility] [address], [place], [address], 06/29/2024 11:09:23 06/29/19 25 06/29/2024 drug scree n, urine Opiates: negati ve Not Available [facility] [address], [place], [address], 06/29/2024 11:09:23 06/29/19 25 06/29/2024 drug scree n, urine Phenocyclidi ne: negati ve Not Available [facility] [address], [place], [address], 06/29/2024 11:09:23 06/29/19 25 06/29/2024 drug scree n, urine Barbiturates : negati ve Not Available [facility] [address], [place], [address], 06/29/2024 11:09:23 06/29/19 25 06/29/2024 drug scree n, urine Benzodiazepi humberto: negati ve Not Available [facility] [address], [place], [address], 06/29/2024 11:09:23 06/29/19 25 06/29/2024 drug scree n, urine Ethanol: negati ve Not Available [facility] [address], [place], [address], 06/29/2024 11:09:23 06/29/19 25 06/29/2024 drug scree n, urine Hallucinogen s: negati ve Not Available [facility] [address], [place], [address], 06/29/2024 11:09:23 06/29/19 25 06/29/2024 drug scree n, urine Inhalants: negati ve Not Available [facility] [address], [place], [address], 06/29/2024 11:09:23 06/29/19 25 06/29/2024 drug scree n, urine Anabolic Steroids: negati ve Not Available [facility] [address], [place], [address], 06/29/2024 11:09:23 06/04/19 25 06/04/2024 US, obste tric, 1st trime ster No observ ation [facility]. [facility] [address], [place], [address], 06/04/2024 17:06:49 06/04/19 25 06/04/2024 US, obste tric, 1st trime ster No observ ation record ed. [email or web address] [address], [place], [address], 06/05/2024 13:04:52 06/29/19 25 06/29/2024 US, obste tric, nucha l trans lucen cy No observ ation record ed. [email or web address] [facility] [address], [place], [address], 06/29/2024 13:05:41 06/29/19 25 06/29/2024 US, obste tric, nucha l trans lucen cy No observ ation record ed. [email or web address] [address], [place], [address], 06/30/2024 09:21:23 Result Notes None recorded. Problems Name Problem SNOMED Code Status Onset Date Resolution Date Notes Provider Name and Address Organization Details Recorded Time Anxiety 62355413 Active 2020 Shanna lyons, [facility] 1 14:37:40 22738919 Active 2024 Aliya Schaefer [facility], [facility] 5 10:58:29 Bipolar disorder 83751866 Active quetiapine Keven Roach MD [address], [place], [address], , P[facility] 5 11:12:09 Problem Notes None recorded. Procedures Surgical History Date Name Laterality Status Provider Name and Address Organization Details Recorded Time 04/01/20 24 LEEP completed Keven Roach MD [address], [place], [address], , P[facility] 04/01/2024 18:24:41 04/01/20 24 LEEP completed Aliya Schaefer [facility] 06/04/2024 12:15:05 02/13/20 24 Colposcopy completed Keven Roach MD [address], [place], [address], , P[facility] 02/14/2024 13:06:32 02/13/20 24 Colposcopy completed Aliya Schaefer [facility] 02/13/2024 10:34:47 02/13/20 24 Colposcopy completed Aliya Schaefer [facility] 02/13/2024 10:34:39 12/31/19 24 Date of Last Pap Smear completed Aliya Schaefer [facility] 02/13/2024 10:00:52 Imaging Results None recorded. [...] Body mass index (BMI) Body weight Systolic And Diastolic Provider Name and Address Organization Details Last Updated DateTime 06/04/2024 170.18 cm 21.8 kg/m2 02930.34 g 111/72 mm[Hg] Aliya [facility] 06/04/2024 12:09:40 Date Recorded Body height Body mass index (BMI) Body weight Systolic And Diastolic Provider Name and Address Organization Details Last Updated DateTime 06/29/2024 170.18 cm 22.1 kg/m2 58194.52 g 127/83 mm[Hg] Aliya [facility] 06/29/2024 10:56:13 Date Recorded Body height Body mass index (BMI) Body weight Systolic And Diastolic Provider Name and Address Organization Details Last Updated DateTime 04/01/2024 170.18 cm 21.1 kg/m2 95862.97 g 106/69 mm[Hg] Vanessa Mcintosh [facility] 04/01/2024 16:40:30 Social History Question Answer Notes LastModified by Organizat ion Details LastModified Time Tobacco Smoking Status Current Every Day [facility] 06/16/2020 11:10:20 If You Are , What Was Your Level Of Alcohol Consumption Prior To ? None Information not available 06/16/2020 How Many Years Have You Consumed Alcohol? 2 Information not available 06/16/2020 Are You Blind Or Do You Have Difficulty Seeing? No [email or web address] Information n ot available 09/26/2020 What Is [...] Do You Have Serious Difficulty Hearing? No Information not available 09/26/2020 What Type Of Diet Are You Following? REGULAR Information n ot available 02/13/2024 Which Illicit Or Recreational Drugs Have You Used? Stevenson Information not available 06/16/2020 What Is The Highest Grade Or Level Of School You Have Completed Or The Highest Degree You Have Received? [id number] Information not available 02/13/2024 How Many Days [...] Date Was Tobacco Cessation Counseling Provided? 09/26/2020 [email or web address] Information not available 09/26/2020 How Many Years [...] 06/16/2020 Are you able to walk? YESWOREST [email or web address] Information not available 09/26/2020 What is your [...] anxious, or unable to sleep at night)? [id number] Information not available 02/13/2024 Family History Relationship Description Onset Age of this Age Resolved Age Notes LastModified by Organization Details LastModified Time Brother Asthma Not available 1 07/04/2019 10:54:09 Maternal Grandmother Carcinoma in situ of breast [email or web address] Not available 2024 10:15:15 Maternal Grandmother Diabetes mellitus Not available 2019 10:54:26 Maternal Grandmother Hypertensive disorder Not available 2019 10:54:34 Maternal Grandmother Carcinoma in situ of lung [email or web address] Not available 10:15:15 Mother Cyst of ovary [email or web address] Not available 2024 10:15:15 Medical History Condition Response Anxiety Disorder Y History of STI Y History of abnormal pap Y Gynecological [...] SNOMED-CT Code Diagnosis ICD10 Code Diagnosis Note [id number] Guerita Earl , [facility] [address] [address] 05/03/2020 10:47:54 05/03/2020 11:38:26 Gynecologic examination 80743027 Z01.419 Take Calcium with Vitamin D 1200mg [...] nursing; switched from neurosurge on major. Oligomenorrhea 32350775 N91.5 Hx of irregular menses since menarche [...] Can discuss results/US /POC at upcoming visit. [id number] Guerita Earl , [facility] [address],[place] [address] 06/16/2020 10:51:57 06/16/2020 12:36:08 Venereal disease screening 914701079 Z11.3 RAPHAEL sent today Will call with results. Time spent in visit is a total of 15 mins with at least 50% of visit consisting of counseling and review of plan of care. [id number] Guerita Earl , [facility] [address],[place] [address] 05/16/2020 11:26:36 05/16/2020 13:21:41 Oligomenorrhea 56526013 N91.5 TVUS reviewed Labs wnl Likely oligomenor [...] counseling and review of plan of care. [id number] Keven Roach MD [facility] [address],[place] [address] 05/16/2020 11:26:57 05/16/2020 12:04:53 Oligomenorrhea 64914742 N91.5 [id number] [facility] [address],[place] [address] 08/16/2020 14:08:36 08/16/2020 16:36:47 Pain in pelvis 83691291 R10.2 [id number] Keven Roach MD [facility] [address],[place] [address] 08/16/2020 15:03:53 08/16/2020 15:39:25 Pain in pelvis 35727716 R10.2 [id number] Keven Roach MD [facility] [address],[place] [address] 09/04/2020 16:28:07 09/05/2020 00:00:03 Pain in pelvis 66844725 R10.2 this patient is a 20-year-ol d female with pelvic pain who presents for follow-up after ultrasound . Her pain is improved. Her ultrasound is unremarkab le. We agreed to observe her pain. [id number] Keven Roach MD [facility] [address],[place] [address] 09/26/2020 11:46:37 09/26/2020 12:43:41 Pain in pelvis 97424638 R10.2 This patient is 20-year-ol d female who has intense episodes of pelvic pain. She has had numerous episodes. Most recently it was it was provoked by intercours e. She had some bleeding that followed. Patient is amenorrhei c and she has progestero ne withdrawal bleeds. Her PCOS labs are normal. She have a pelvic ultrasound to see me quickly. [id number] Keven Roach MD [facility] [address],[place] [address] 10/09/2020 15:29:37 10/09/2020 15:52:57 Pain in pelvis 10744317 R10.2 this patient is a 20-year-ol d female with pelvic pain who presents for follow-up after ultrasound . Her pain is improved. Her ultrasound is unremarkab le. We agreed to observe her pain. [id number] Keven Roach MD [facility] [address] [address] 10/09/2020 15:30:02 10/10/2020 16:18:10 Contraception care management 421623804 Z30.9 Pain in pelvis 02334878 R10.2 this patient is a 20-year-ol d [...] on. She will follow-up in 3 months. [id number] JEREMY Vale [facility] [address] [address] 12/31/2023 12:36:09 12/31/2023 14:05:00 Gynecologic examination 29731760 Z01.419 WWEpap updatedgc/ ct/trich testing added to [...] have been answered. Venereal d isease screening 537720007 Z11.3 Contracept ion care management 900689478 Z30.9 doing well on current OCP and desires to continuere fills sent, r/b/a reviewed, updated consent reviewed and signed by pt [id number] Keven Roach MD [facility] [address],[facility] [address] 02/13/2024 09:55:39 02/16/2024 12:20:01 Screening procedure 05290345 Z13.9 Abnormal c ervical Papanicolaou smear 786217090 R87.619 cervical biopsies were performed. She has some aceto-whit e in the anterior transition zone. It was a satisfacto ry exam. To follow up on results. [id number] Keven Roach MD [facility] [address],[place] [address] 04/01/2024 16:24:49 04/05/2024 02:57:33 Screening procedure 72636829 Z13.9 Dysplasia of cervix 7339 1008 N87.9 LEEP procedure was performed. She tolerated it well. We will follow up on pathology results. [id number] Keven Roach MD [facility] [address],[place] [address] 06/04/2024 11:14:08 06/04/2024 12:57:06 Amenorrhea 36678186 N91.2 this patient is a 24-year-ol d [...] begin routine care at her next visit. [id number] MD Yaritza Laguna [address],[facility] [address] 06/04/2024 11:14:13 06/04/2024 11:53:17 screening [id number] Z36.87 Z3A.01 [id number] Keven Roach MD [place] [address] [address] 06/29/2024 10:14:02 06/29/2024 10:45:22 screening [id number] Z36.82 Z3A.11 [id number] Keven Roach MD [place] [address] [address] 06/29/2024 10:14:48 06/29/2024 11:34:22 Routine care [id number] Z34.90 Health Concerns Section Related Observation LastModified by Organization Detai ls LastModified Time None Recorded Concern Status LastModified by Organization Details LastModified Time None Recorded Advance Directives Directive None Recorded Payers Insurance Date Sequence Insurance Name Policy Number Policy Malcolm Covered Member ID Malcolm Member ID Guarantor Name 06/04/2024 1 [employer] [id number] Tati Hong [id number] Tati Hong 05/19/2024 1 [employer] [id number] Tati Hong [id number] Tati Hong 04/01/2024 1 [facility] (MEDICAID HMO) [id number] Tati Hong [id number] Tati Hong 02/13/2024 SLIDING FEE SCHEDULE - DISCOUNT Tait Hong 09/23/2024 1 [facility] (O) [id number] Tati Gely [id number] Tati Hong Notes Date Note Type [...] proceed. Keven Roach MD [address], [place], [address], [facility] 04/01/2024 18:28:55 06/04/2024 text/html this patient [...] She was given recommendations on exercise, diet, mxln-ofv-putuyre medications. We reviewed her obstetric history. We reviewed her medical history. We reviewed her social history. She will begin routine care at her next visit. Keven Roach MD [address], [place], [address], [facility] 06/04/2024 12:49:44 OBGyn Episode Ob Episode Information Episode Created Date Number of Fetuses Patient Bloodtype Patient rh Status Prepregnancy Weight lbs Domestic Partner Domestic Partner Phone Father Name Vehicle And Equipment Cleaner Status 06/29/19 25 1 A Positive OPEN Fetus Data First Name Last Name Admitted to NICU Weight (g) Sex Living Outcome Pediatric Complications Fetus ID Race Codes Race Delivery Type [id number] Problems Problem Notes Problem Name Start Date End Date Resolution Snomed Code Not e Bipolar disorder [id number] que tiapine Eitan Calculation Initial Eitan Date [...] Weight in lbs Pre/Post Dialysis Refused Weight [id number] BP Diastolic BP Location Tested BP Systolic [...]
--- OUTSIDE RECORDS SUMMARY | 2024-12-14 12:31 | XMS_ITS | Data Portability ---
Author Organization [facility] [facility], Main Office Address [address] [place] [address] Care Team Providers Care Auto Parker Name Role Phone LILIAM SOCRATES Primary Care [...] to quit. Cont f/u with Psych at [facility] as per schedule. Cont f/u with Gyne at [place] as per schedule. HM: WWE - 11/21, normal as per pt. Cont f/u with Gyne as per schedule. Flu - 02/27/22. Tdap, Gardasil - At . F/u in 2-3 weeks. Annual labs in 09/23. [email or web address] Not available 09/10/2022 11:48:36 10/01/2022 10/01/2022 24 [...] to quit. Cont f/u with Psych at [facility] as per schedule. Cont f/u with Gyne at [place] as per schedule. HM: WWE - 11/21, normal as per pt. Cont f/u with Gyne as per schedule. Flu - 02/27/22. Tdap, Gardasil - At [facility]. F/u in 3-6 months. Annual labs in 09/23. [email or web address] Not available 10/01/2022 11:40:27 Plan of Treatment Reminders Order Date Submit Date Provider Last Modified By Organization Details Last Modified Time Details Appointments None recorded. Lab vitamin D, 25-hydroxy, total, serum [address] (Lab), [address] [place], [address], 3 09:01:39 CBC w/ auto diff 2022 023 [facility] (Lab), [address] [place], [address], 3 20:15:42 CMP, serum or plasma 2022 023 [facility] (Lab), [address] [place], [address], 3 20:58:06 lipid panel, serum 2022 023 [facility] (Lab), [address] [place], [address], 3 12:51:27 TSH, serum, reflex free T4 [address] (Lab), [address] [place], [address], 3 09:00:28 urinalysis complete, reflex culture [address] (Lab), [address] [place], [address], 3 09:00:50 Referral None recorded. Procedures None [...] 1.290 uIU/m L 0.465- 4.680 Not Available [facility] (Lab) [address] [place], [address], 10/03/2021 20:29:34 10/04/19 22 10/03/2021 VITAM IN D 25-HY DROXY [id number] 35.2 NG/mL 30-100 Vitam in D Statu s: Defic ient: <20 ng/mL Insuf ficie nt: 20-29 ng/mL Suffi cient : 30-10 0 ng/mL Not Available [facility] (Lab) [address] [place], [address], 10/03/2021 20:22:22 10/04/19 22 10/03/2021 URINA LYSIS COMPL ETE/I RIS W/RFX color yellow Not Available [facility] (Lab) [address] [place], [address], 10/03/2021 20:05:18 10/04/19 22 10/03/2021 URINA LYSIS COMPL ETE/I RIS W/RFX appear clear Not Available [facility] (Lab) [address] [place], [address], 10/03/2021 20:05:18 10/04/19 22 10/03/2021 URINA LYSIS COMPL ETE/I RIS W/RFX specific gravity 1.021 1.001- 1.030 Not Available [facility] (Lab) [address] [place], [address], 10/03/2021 20:05:18 10/04/19 22 10/03/2021 URINA LYSIS COMPL ETE/I RIS W/RFX pH 7.0 pH_un its 5.0-9. 0 Not Available [facility] (Lab) [address] [place], [address], 10/03/2021 20:05:18 10/04/19 22 10/03/2021 URINA LYSIS COMPL ETE/I RIS W/RFX leukocytes negati ve jennifer/u L negati ve- Not Available [facility] (Lab) [address] [place], [address], 10/03/2021 20:05:18 10/04/19 22 10/03/2021 URINA LYSIS COMPL ETE/I RIS W/RFX nitrite negati ve negati ve- Not Available [facility] (Lab) [address] [place], [address], 10/03/2021 20:05:18 10/04/19 22 10/03/2021 URINA LYSIS COMPL ETE/I RIS W/RFX protein 20 mg/dL negati ve- abnormal Not Available [facility] (Lab) [address] [place], [address], 10/03/2021 20:05:18 10/04/19 22 10/03/2021 URINA LYSIS COMPL ETE/I RIS W/RFX glucose normal mg/dL normal - Not Available [facility] (Lab) [address] [place], [address], 10/03/2021 20:05:18 10/04/19 22 10/03/2021 URINA LYSIS COMPL ETE/I RIS W/RFX ketones negati ve mg/dL negati ve- Not Available [facility] (Lab) [address] [place], [address], 10/03/2021 20:05:18 10/04/19 22 10/03/2021 URINA LYSIS COMPL ETE/I RIS W/RFX urobilinogen normal mg/dL normal - Not Available [facility] (Lab) [address] [place], [address], 10/03/2021 20:05:18 10/04/19 22 10/03/2021 URINA LYSIS COMPL ETE/I RIS W/RFX bilirubin negati ve mg/dL negati ve- Not Available [facility] (Lab) [address] [place], [address], 10/03/2021 20:05:18 10/04/19 22 10/03/2021 URINA LYSIS COMPL ETE/I RIS W/RFX blood negati ve mg/dL negati ve- Not Available [facility] (Lab) [address] [place], [address], 10/03/2021 20:05:18 10/04/19 22 10/03/2021 URINA LYSIS COMPL ETE/I RIS W/RFX white blood cells 0-8 /i??h pfi?? 0-8 Not Available [facility] (Lab) [address] [place], [address], 10/03/2021 20:05:18 10/04/19 22 10/03/2021 URINA LYSIS COMPL ETE/I RIS W/RFX red blood cells 0-4 /i??h pfi?? 0-4 Not Available [facility] (Lab) [address] [place], [address], 10/03/2021 20:05:18 10/04/19 22 10/03/2021 URINA LYSIS COMPL ETE/I RIS W/RFX bacteria none Not Available [facility] (Lab) [address] [place], [address], 10/03/2021 20:05:18 10/04/19 22 10/03/2021 URINA LYSIS COMPL ETE/I RIS W/RFX mucous few /i??l pfi?? abnormal Not Available [facility] (Lab) [address] [place], [address], 10/03/2021 20:05:18 10/04/19 22 10/03/2021 URINA LYSIS COMPL ETE/I RIS W/RFX squamous epithelial packed field /i??l pfi?? abnormal Not Available [facility] (Lab) [address] [place], [address], 10/03/2021 20:05:18 10/04/19 22 10/03/2021 URINA LYSIS COMPL ETE/I RIS W/RFX renal epithelial occasi onal /i??l pfi?? abnormal Not Available [facility] (Lab) [address] [place], [address], 10/03/2021 20:05:18 10/04/19 22 10/03/2021 LIPID PANEL cholesterol 194 mg/dL 140-19 9 NIH JORGE NSUS RECOM MENDA TION FOR MEAGAN STERO L: ADULT CHILD LOW RISK: <200 <170 BORDE RLINE : <200- 239 ----- HIGH RISK: >240 >200 Not Available [facility] (Lab) [address] [place], [address], 10/03/2021 19:57:48 10/04/19 22 10/03/2021 LIPID PANEL triglyceride s 77 mg/dL 0-150 NIH JORGE NSUS REPOR T RECOM MENDA TION FOR TRIGL YCERI EMMANUEL: ADULT CHILD LOW RISK: <150 ----- BODER LINE: 150-1 99 ----- HIGH RISK: >200 ----- Not Available [facility] (Lab) [address] [place], [address], 10/03/2021 19:57:48 10/04/19 22 10/03/2021 LIPID PANEL HDL cholesterol 77 mg/dL 40- Not Available [facility] (Lab) [address] [place], [address], 10/03/2021 19:57:48 10/04/19 22 10/03/2021 LIPID PANEL [...] NOT BE REPOR MARY CARMEN. Not Available [facility] (Lab) [address] [place], [address], 10/03/2021 19:57:48 10/04/19 22 10/03/2021 COMPR EHENS NOVA METAB OLIC PANEL sodium 138 mmol/ L 137-14 5 Not Available [facility] (Lab) [address] [place], [address], 10/03/2021 19:57:42 10/04/19 22 10/03/2021 COMPR EHENS NOVA METAB OLIC PANEL potassium 4.2 mmol/ L 3.5-5. 1 Not Available [facility] (Lab) [address] [place], [address], 10/03/2021 19:57:42 10/04/19 22 10/03/2021 COMPR EHENS NOVA METAB OLIC PANEL chloride 104 mmol/ L 98-107 Not Available [facility] (Lab) [address] [place], [address], 10/03/2021 19:57:42 10/04/19 22 10/03/2021 COMPR EHENS NOVA METAB OLIC PANEL carbon dioxide 28 mmol/ L 22-30 Not Available [facility] (Lab) [address] [place], [address], 10/03/2021 19:57:42 10/04/19 22 10/03/2021 COMPR EHENS NOVA METAB OLIC PANEL anion gap 10.2 mmol/ L 14-22 low Not Available [facility] (Lab) [address] [place], [address], 10/03/2021 19:57:42 10/04/19 22 10/03/2021 COMPR EHENS NOVA METAB OLIC PANEL glucose 83 mg/dL 70-99 Not Available [facility] (Lab) [address] [place], [address], 10/03/2021 19:57:42 10/04/19 22 10/03/2021 COMPR EHENS NOVA METAB OLIC PANEL BUN 10 mg/dL 8-19 Not Available [facility] (Lab) [address] [place], [address], 10/03/2021 19:57:42 10/04/19 22 10/03/2021 COMPR EHENS NOVA METAB OLIC PANEL creatinine 0.68 mg/dL 0.66-1 .25 Not Available [facility] (Lab) [address] [place], [address], 10/03/2021 19:57:42 10/04/19 22 10/03/2021 COMPR EHENS NOVA METAB OLIC PANEL GFR >60 Refer ence Range : Snook ge GFR Healt hy Adult : >60 [...] calcu lator is avail able on the [facility] websi te: https ://ww w.kid artur.o rg/pr ofess ional s/kdo qi/gf r_cal culat or Not Available [facility] (Lab) [address] [place], [address], 10/03/2021 19:57:42 10/04/19 22 10/03/2021 COMPR EHENS NOVA METAB OLIC PANEL alkaline phosphatase 63 U/L 38-126 Not Available [facility] (Lab) [address] [place], [address], 10/03/2021 19:57:42 10/04/19 22 10/03/2021 COMPR EHENS NOVA METAB OLIC PANEL alanine aminotransfe rase 16 U/L 0-35 Not Available [facility] (Lab) [address] [place], [address], 10/03/2021 19:57:42 10/04/19 22 10/03/2021 COMPR EHENS NOVA METAB OLIC PANEL aspartate aminotransfe rase 25 U/L 15-37 Not Available [facility] (Lab) [address] [place], [address], 10/03/2021 19:57:42 10/04/19 22 10/03/2021 COMPR EHENS NOVA METAB OLIC PANEL bilirubin, total 0.40 mg/dL 0.20-1 .30 Not Available [facility] (Lab) [address] [place], [address], 10/03/2021 19:57:42 10/04/19 22 10/03/2021 COMPR EHENS NOVA METAB OLIC PANEL calcium 9.7 mg/dL 8.4-10 .2 Not Available [facility] (Lab) [address] [facility] [place], [address], 10/03/2021 19:57:42 10/04/19 22 10/03/2021 COMPR EHENS NOVA METAB OLIC PANEL total protein 7.8 g/dL 6.3-8. 2 Not Available [facility] (Lab) [address] [place], [address], 10/03/2021 19:57:42 10/04/19 22 10/03/2021 COMPR EHENS NOVA METAB OLIC PANEL albumin 4.4 g/dL 3.4-5. 0 Not Available [facility] (Lab) [address] [place], [address], 10/03/2021 19:57:42 10/04/19 22 10/03/2021 COMPR EHENS NOVA METAB OLIC PANEL globulin 3.4 g/dL 2.6-4. 2 Not Available [facility] (Lab) [address] [place], [address], 10/03/2021 19:57:42 10/04/19 22 10/03/2021 COMPR EHENS NOVA METAB OLIC PANEL A/G ratio 1.3 ratio 1.0-2. 0 Not Available [facility] (Lab) [address] [place], [address], 10/03/2021 19:57:42 10/04/19 22 10/03/2021 CBC/C OMPLE TE BLD COUNT W/DIF F white blood cells 6.3 x10'3 /uL 4.2-10 .8 Not Available [facility] (Lab) [address] [place], [address], 10/03/2021 19:46:40 10/04/19 22 10/03/2021 CBC/C OMPLE TE BLD COUNT W/DIF F red blood cells 4.09 x10'6 /uL 3.80-5 .20 Not Available [facility] (Lab) [address] [place], [address], 10/03/2021 19:46:40 10/04/19 22 10/03/2021 CBC/C OMPLE TE BLD COUNT W/DIF F hemoglobin 13.4 g/dL 12.0-1 5.6 Not Available [facility] (Lab) [address] [place], [address], 10/03/2021 19:46:40 10/04/19 22 10/03/2021 CBC/C OMPLE TE BLD COUNT W/DIF F hematocrit 40.4 % 35.7-4 5.7 Not Available [facility] (Lab) [address] [place], [address], 10/03/2021 19:46:40 10/04/19 22 10/03/2021 CBC/C OMPLE TE BLD COUNT W/DIF F mean red cell volume 98.8 fL 82.0-9 9.0 Not Available [facility] (Lab) [address] [place], [address], 10/03/2021 19:46:40 10/04/19 22 10/03/2021 CBC/C OMPLE TE BLD COUNT W/DIF F mean red cell hemoglobin 32.8 pg 27.0-3 3.0 Not Available [facility] (Lab) [address] [place], [address], 10/03/2021 19:46:40 10/04/19 22 10/03/2021 CBC/C OMPLE TE BLD COUNT W/DIF F mean RBC HGB concentratio n 33.2 g/dL 31.0-3 6.0 Not Available [facility] (Lab) [address] [place], [address], 10/03/2021 19:46:40 10/04/19 22 10/03/2021 CBC/C OMPLE TE BLD COUNT W/DIF F red cell distribution width 12.1 % 11.8-1 5.5 Not Available [facility] (Lab) [address] [place], [address], 10/03/2021 19:46:40 10/04/19 22 10/03/2021 CBC/C OMPLE TE BLD COUNT W/DIF F platelets 229 x10'3 /uL 150-40 0 Not Available [facility] (Lab) [address] [place], [address], 10/03/2021 19:46:40 10/04/19 22 10/03/2021 CBC/C OMPLE TE BLD COUNT W/DIF F mean platelet volume 11.5 fL 9.0-12 .4 Not Available [facility] (Lab) [address] [place], [address], 10/03/2021 19:46:40 10/04/19 22 10/03/2021 CBC/C OMPLE TE BLD COUNT W/DIF F neutrophils 61.5 % 39.0-7 2.0 Not Available [facility] (Lab) [address] [place], [address], 10/03/2021 19:46:40 10/04/19 22 10/03/2021 CBC/C OMPLE TE BLD COUNT W/DIF F lymphocytes 26.8 % 16.0-4 7.0 Not Available [facility] (Lab) [address] [place], [address], 10/03/2021 19:46:40 10/04/19 22 10/03/2021 CBC/C OMPLE TE BLD COUNT W/DIF F monocytes 9.1 % 5.0-12 .0 Not Available [facility] (Lab) [address] [place], [address], 10/03/2021 19:46:40 10/04/19 22 10/03/2021 CBC/C OMPLE TE BLD COUNT W/DIF F eosinophils 1.6 % 1.0-7. 0 Not Available [facility] (Lab) [address] [place], [address], 10/03/2021 19:46:40 10/04/19 22 10/03/2021 CBC/C OMPLE TE BLD COUNT W/DIF F basophils 0.8 % 0.0-2. 0 Not Available [facility] (Lab) [address] [place], [address], 10/03/2021 19:46:40 10/04/19 22 10/03/2021 CBC/C OMPLE TE BLD COUNT W/DIF F immature granulocytes 0.2 % 0.00-0 .50 Not Available [facility] (Lab) [address] [place], [address], 10/03/2021 19:46:40 10/04/19 22 10/03/2021 CBC/C OMPLE TE BLD COUNT W/DIF F neutrophils, absolute count 3.87 x10'3 /uL 1.5-8. 0 Not Available [facility] (Lab) [address] [place], [address], 10/03/2021 19:46:40 10/04/19 22 10/03/2021 CBC/C OMPLE TE BLD COUNT W/DIF F lymphocytes, absolute count 1.68 x10'3 /uL 1.07-3 .43 Not Available [facility] (Lab) [address] [place], [address], 10/03/2021 19:46:40 10/04/19 22 10/03/2021 CBC/C OMPLE TE BLD COUNT W/DIF F monocytes, absolute count 0.57 x10'3 /uL 0.29-0 .99 Not Available [facility] (Lab) [address] [place], [address], 10/03/2021 19:46:40 10/04/19 22 10/03/2021 CBC/C OMPLE TE BLD COUNT W/DIF F eosinophils, absolute count 0.10 x10'3 /uL 0.02-0 .53 Not Available [facility] (Lab) [address] [place], [address], 10/03/2021 19:46:40 10/04/19 22 10/03/2021 CBC/C OMPLE TE BLD COUNT W/DIF F basophils, absolute count 0.05 x10'3 /uL 0.01-0 .08 Not Available [facility] (Lab) [address] [place], [address], 10/03/2021 19:46:40 10/04/19 22 10/03/2021 CBC/C OMPLE TE BLD COUNT W/DIF F immature granulocytes ,absolute 0.01 x10'3 /uL 0.00-0 .05 Not Available [facility] (Lab) [address] [place], [address], 10/03/2021 19:46:40 10/04/19 22 10/03/2021 CBC/C OMPLE TE BLD COUNT W/DIF F nucleated red blood cells 0.0 % -0 Not Available [facility] (Lab) [address] [place], [address], 10/03/2021 19:46:40 10/04/19 22 10/03/2021 CBC/C OMPLE TE BLD COUNT W/DIF F NRBC# 0.00 x10'3 /uL Not Available [facility] (Lab) [address] [place], [address], 10/03/2021 19:46:40 09/25/19 23 09/24/2022 CBC/C OMPLE TE BLD COUNT W/DIF F white blood cells 6.5 x10'3 /uL 4.2-10 .8 Not Available [facility] (Lab) [address] [place], [address], 09/24/2022 20:15:42 09/25/19 23 09/24/2022 CBC/C OMPLE TE BLD COUNT W/DIF F red blood cells 4.05 x10'6 /uL 3.80-5 .20 Not Available [facility] (Lab) [address] [place], [address], 09/24/2022 20:15:42 09/25/19 23 09/24/2022 CBC/C OMPLE TE BLD COUNT W/DIF F hemoglobin 13.2 g/dL 12.0-1 5.6 Not Available [facility] (Lab) [address] [place], [address], 09/24/2022 20:15:42 09/25/19 23 09/24/2022 CBC/C OMPLE TE BLD COUNT W/DIF F hematocrit 39.9 % 35.7-4 5.7 Not Available [facility] (Lab) [address] [place], [address], 09/24/2022 20:15:42 09/25/19 23 09/24/2022 CBC/C OMPLE TE BLD COUNT W/DIF F mean red cell volume 98.5 fL 82.0-9 9.0 Not Available [facility] (Lab) [address] [place], [address], 09/24/2022 20:15:42 09/25/19 23 09/24/2022 CBC/C OMPLE TE BLD COUNT W/DIF F mean red cell hemoglobin 32.6 pg 27.0-3 3.0 Not Available [facility] (Lab) [address] [place], [address], 09/24/2022 20:15:42 09/25/19 23 09/24/2022 CBC/C OMPLE TE BLD COUNT W/DIF F mean RBC HGB concentratio n 33.1 g/dL 31.0-3 6.0 Not Available [facility] (Lab) [address] [place], [address], 09/24/2022 20:15:42 09/25/19 23 09/24/2022 CBC/C OMPLE TE BLD COUNT W/DIF F red cell distribution width 11.9 % 11.8-1 5.5 Not Available [facility] (Lab) [address] [place], [address], 09/24/2022 20:15:42 09/25/19 23 09/24/2022 CBC/C OMPLE TE BLD COUNT W/DIF F platelets 219 x10'3 /uL 150-40 0 Not Available [facility] (Lab) [address] [place], [address], 09/24/2022 20:15:42 09/25/19 23 09/24/2022 CBC/C OMPLE TE BLD COUNT W/DIF F mean platelet volume 11.8 fL 9.0-12 .4 Not Available [facility] (Lab) [address] [place], [address], 09/24/2022 20:15:42 09/25/19 23 09/24/2022 CBC/C OMPLE TE BLD COUNT W/DIF F neutrophils 53.1 % 39.0-7 2.0 Not Available [facility] (Lab) [address] [place], [address], 09/24/2022 20:15:42 09/25/19 23 09/24/2022 CBC/C OMPLE TE BLD COUNT W/DIF F lymphocytes 32.5 % 16.0-4 7.0 Not Available [facility] (Lab) [address] [place], [address], 09/24/2022 20:15:42 09/25/19 23 09/24/2022 CBC/C OMPLE TE BLD COUNT W/DIF F monocytes 10.9 % 5.0-12 .0 Not Available [facility] (Lab) [address] [place], [address], 09/24/2022 20:15:42 09/25/19 23 09/24/2022 CBC/C OMPLE TE BLD COUNT W/DIF F eosinophils 2.3 % 1.0-7. 0 Not Available [facility] (Lab) [address] [place], [address], 09/24/2022 20:15:42 09/25/19 23 09/24/2022 CBC/C OMPLE TE BLD COUNT W/DIF F basophils 0.9 % 0.0-2. 0 Not Available [facility] (Lab) [address] [place], [address], 09/24/2022 20:15:42 09/25/19 23 09/24/2022 CBC/C OMPLE TE BLD COUNT W/DIF F immature granulocytes 0.3 % 0.00-0 .50 Not Available [facility] (Lab) [address] [place], [address], 09/24/2022 20:15:42 09/25/19 23 09/24/2022 CBC/C OMPLE TE BLD COUNT W/DIF F neutrophils, absolute count 3.47 x10'3 /uL 1.5-8. 0 Not Available [facility] (Lab) [address] [place], [address], 09/24/2022 20:15:42 09/25/19 23 09/24/2022 CBC/C OMPLE TE BLD COUNT W/DIF F lymphocytes, absolute count 2.12 x10'3 /uL 1.07-3 .43 Not Available [facility] (Lab) [address] [place], [address], 09/24/2022 20:15:42 09/25/19 23 09/24/2022 CBC/C OMPLE TE BLD COUNT W/DIF F monocytes, absolute count 0.71 x10'3 /uL 0.29-0 .99 Not Available [facility] (Lab) [address] [place], [address], 09/24/2022 20:15:42 09/25/19 23 09/24/2022 CBC/C OMPLE TE BLD COUNT W/DIF F eosinophils, absolute count 0.15 x10'3 /uL 0.02-0 .53 Not Available [facility] (Lab) [address] [place], [address], 09/24/2022 20:15:42 09/25/19 23 09/24/2022 CBC/C OMPLE TE BLD COUNT W/DIF F basophils, absolute count 0.06 x10'3 /uL 0.01-0 .08 Not Available [facility] (Lab) [address] [place], [address], 09/24/2022 20:15:42 09/25/19 23 09/24/2022 CBC/C OMPLE TE BLD COUNT W/DIF F immature granulocytes ,absolute 0.02 x10'3 /uL 0.00-0 .05 Not Available [facility] (Lab) [address] [place], [address], 09/24/2022 20:15:42 09/25/19 23 09/24/2022 CBC/C OMPLE TE BLD COUNT W/DIF F nucleated red blood cells 0.0 % -0 Not Available [facility] (Lab) [address] [place], [address], 09/24/2022 20:15:42 09/25/19 23 09/24/2022 CBC/C OMPLE TE BLD COUNT W/DIF F NRBC# 0.00 x10'3 /uL Not Available [facility] (Lab) [address] [place], [address], 09/24/2022 20:15:42 09/25/1909/24/2022 COMPR EHENS NOVA METAB OLIC PANEL sodium 137 mmol/ L 137-14 5 Not Available [facility] (Lab) [address] [place], [address], 09/24/2022 20:58:05 09/25/19 23 09/24/2022 COMPR EHENS NOVA METAB OLIC PANEL potassium 3.9 mmol/ L 3.5-5. 1 Not Available [facility] (Lab) [address] [place], [address], 09/24/2022 20:58:05 09/25/19 23 09/24/2022 COMPR EHENS NOVA METAB OLIC PANEL chloride 105 mmol/ L 98-107 Not Available [facility] (Lab) [address] [place], [address], 09/24/2022 20:58:05 09/25/19 23 09/24/2022 COMPR EHENS NOVA METAB OLIC PANEL carbon dioxide 24 mmol/ L 22-30 Not Available [facility] (Lab) [address] [place], [address], 09/24/2022 20:58:05 09/25/19 23 09/24/2022 COMPR EHENS NOVA METAB OLIC PANEL anion gap 11.9 mmol/ L 14-22 low Not Available [facility] (Lab) [address] [place], [address], 09/24/2022 20:58:05 09/25/19 23 09/24/2022 COMPR EHENS NOVA METAB OLIC PANEL glucose 90 mg/dL 70-99 Not Available [facility] (Lab) [address] [place], [address], 09/24/2022 20:58:05 09/25/19 23 09/24/2022 COMPR EHENS NOVA METAB OLIC PANEL BUN 10 mg/dL 8-19 Not Available [facility] (Lab) [address] [place], [address], 09/24/2022 20:58:05 09/25/19 23 09/24/2022 COMPR EHENS NOVA METAB OLIC PANEL creatinine 0.68 mg/dL 0.66-1 .25 Not Available [facility] (Lab) [address] [place], [address], 09/24/2022 20:58:05 09/25/19 23 09/24/2022 COMPR EHENS NOVA METAB OLIC PANEL GFR >60 Refer ence Range : Snook ge GFR Healt hy Adult : >60 [...] or ethni c subgr oups, such as Socartes nics. Outsi de the valid ated zelda [...] s/kdo qi/gf r_cal culat or Not Available [facility] (Lab) [address] [place], [address], 09/24/2022 20:58:05 09/25/19 23 09/24/2022 COMPR EHENS NOVA METAB OLIC PANEL alkaline phosphatase 52 U/L 38-126 Not Available [facility] (Lab) [address] [facility] [place], [address], 09/24/2022 20:58:05 09/25/19 23 09/24/2022 COMPR EHENS NOVA METAB OLIC PANEL alanine aminotransfe rase 17 U/L 0-35 Not Available [facility] (Lab) [address] [place], [address], 09/24/2022 20:58:05 09/25/19 23 09/24/2022 COMPR EHENS NOVA METAB OLIC PANEL aspartate aminotransfe rase 23 U/L 15-37 Not Available [facility] (Lab) [address] [place], [address], 09/24/2022 20:58:05 09/25/19 23 09/24/2022 COMPR EHENS NOVA METAB OLIC PANEL bilirubin, total 0.50 mg/dL 0.20-1 .30 Not Available [facility] (Lab) [address] [place], [address], 09/24/2022 20:58:05 09/25/19 23 09/24/2022 COMPR EHENS NOVA METAB OLIC PANEL calcium 9.4 mg/dL 8.4-10 .2 Not Available [facility] (Lab) [address] [place], [address], 09/24/2022 20:58:05 09/25/19 23 09/24/2022 COMPR EHENS NOVA METAB OLIC PANEL total protein 7.5 g/dL 6.3-8. 2 Not Available [facility] (Lab) [address] [place], [address], 09/24/2022 20:58:05 09/25/19 23 09/24/2022 COMPR EHENS NOVA METAB OLIC PANEL albumin 4.5 g/dL 3.4-5. 0 Not Available [facility] (Lab) [address] [place], [address], 09/24/2022 20:58:05 09/25/19 23 09/24/2022 COMPR EHENS NOVA METAB OLIC PANEL globulin 3.0 g/dL 2.6-4. 2 Not Available [facility] (Lab) [address] [place], [address], 09/24/2022 20:58:05 09/25/19 23 09/24/2022 COMPR EHENS NOVA METAB OLIC PANEL A/G ratio 1.5 ratio 1.0-2. 0 Not Available [facility] (Lab) [address] [place], [address], 09/24/2022 20:58:05 09/25/19 23 09/24/2022 VITAM IN D 25-HY DROXY [id number] 38.3 NG/mL 30-100 Vitam in D Statu s: Defic ient: <20 ng/mL Insuf ficie nt: 20-29 ng/mL Suffi cient : 30-10 0 ng/mL Not Available [facility] (Lab) [address] [place], [address], 09/24/2022 21:20:31 09/25/1909/24/2022 TSH W/REF RUBA FT4 TSH with reflex free T4 1.530 uIU/m L 0.465- 4.680 Not Available [facility] (Lab) [address] [place], [address], 09/24/2022 21:22:45 09/25/19 23 09/24/2022 URINA LYSIS COMPL ETE/I RIS W/RFX color YELLOW Not Available [facility] (Lab) [address] [place], [address], 09/24/2022 21:25:58 09/25/19 23 09/24/2022 URINA LYSIS COMPL ETE/I RIS W/RFX appear TURBID abnormal Not Available [facility] (Lab) [address] [place], [address], 09/24/2022 21:25:58 09/25/19 23 09/24/2022 URINA LYSIS COMPL ETE/I RIS W/RFX specific gravity 1.020 1.001- 1.030 Not Available [facility] (Lab) [address] [place], [address], 09/24/2022 21:25:58 09/25/19 23 09/24/2022 URINA LYSIS COMPL ETE/I RIS W/RFX pH 7.0 pH_un its 5.0-9. 0 Not Available [facility] (Lab) [address] [place], [address], 09/24/2022 21:25:58 09/25/19 23 09/24/2022 URINA LYSIS COMPL ETE/I RIS W/RFX leukocytes NEGATI VE jennifer/u L negati ve- Not Available [facility] (Lab) [address] [place], [address], 09/24/2022 21:25:58 09/25/19 23 09/24/2022 URINA LYSIS COMPL ETE/I RIS W/RFX nitrite NEGATI VE negati ve- Not Available [facility] (Lab) [address] [place], [address], 09/24/2022 21:25:58 09/25/19 23 09/24/2022 URINA LYSIS COMPL ETE/I RIS W/RFX protein NEGATI VE mg/dL negati ve- Not Available [facility] (Lab) [address] [place], [address], 09/24/2022 21:25:58 09/25/19 23 09/24/2022 URINA LYSIS COMPL ETE/I RIS W/RFX glucose NORMAL mg/dL normal - Not Available [facility] (Lab) [address] [place], [address], 09/24/2022 21:25:58 09/25/19 23 09/24/2022 URINA LYSIS COMPL ETE/I RIS W/RFX ketones NEGATI VE mg/dL negati ve- Not Available [facility] (Lab) [address] [place], [address], 09/24/2022 21:25:58 09/25/19 23 09/24/2022 URINA LYSIS COMPL ETE/I RIS W/RFX urobilinogen NORMAL mg/dL normal - Not Available [facility] (Lab) [address] [facility] [place], [address], 09/24/2022 21:25:58 09/25/19 23 09/24/2022 URINA LYSIS COMPL ETE/I RIS W/RFX bilirubin NEGATI VE mg/dL negati ve- Not Available [facility] (Lab) [address] [facility] [place], [address], 09/24/2022 21:25:58 09/25/19 23 09/24/2022 URINA LYSIS COMPL ETE/I RIS W/RFX blood NEGATI VE mg/dL negati ve- Not Available [facility] (Lab) [address] [place], [address], 09/24/2022 21:25:58 09/25/19 23 09/24/2022 URINA LYSIS COMPL ETE/I RIS W/RFX white blood cells 0-8 /i??h pfi?? 0-8 Not Available [facility] (Lab) [address] [place], [address], 09/24/2022 21:25:58 09/25/19 23 09/24/2022 URINA LYSIS COMPL ETE/I RIS W/RFX red blood cells 0-4 /i??h pfi?? 0-4 Not Available [facility] (Lab) [address] [place], [address], 09/24/2022 21:25:58 09/25/19 23 09/24/2022 URINA LYSIS COMPL ETE/I RIS W/RFX bacteria NONE Not Available [facility] (Lab) [address] [place], [address], 09/24/2022 21:25:58 09/25/19 23 09/24/2022 URINA LYSIS COMPL ETE/I RIS W/RFX mucous OCCASI ONAL /i??l pfi?? abnormal Not Available [facility] (Lab) [address] [place], [address], 09/24/2022 21:25:58 09/25/19 23 09/24/2022 URINA LYSIS COMPL ETE/I RIS W/RFX squamous epithelial MANY /i??l pfi?? abnormal Not Available [facility] (Lab) [address] [place], [address], 09/24/2022 21:25:58 09/25/19 23 09/24/2022 URINA LYSIS COMPL ETE/I RIS W/RFX budding yeast PACKED FIELD /i??h pfi?? abnormal Not Available [facility] (Lab) [address] [place], [address], 09/24/2022 21:25:58 Result Notes None recorded. Problems Name Problem SNOMED Code Status Onset Date Resolution Date Notes Provider Name and Address Organization Details Recorded Time Impacted cerumen of bilateral ears 9756854324154 108 Active 2019 Not Available [employer] 3 22:23:24 Bipolar disorder 38293292 Active 2021 Not Available [facility] 3 22:23:24 History of anxiety state 028003226 Active 2019 Not Available [facility] 3 22:23:24 Mood disorder 41198944 Active 2021 Not Available [facility] 3 22:23:24 Vaping Active 2022 Socrates Burgess MD [address], [place], [address] , [employer] 3 11:39:56 Problem Notes None recorded. Procedures Surgical History Date Name Laterality Status Provider Name and Address Organization Details Recorded Time 3 Smoking Cessation completed Socrates Burgess MD [address], [place], [address], [employer] 09/10/2022 11:35:20 Imaging Results None recorded. Procedure [...] blood by Pulse oximetry Respiratory rate Systolic And Diastolic Provider Name and Address Organization Details Last Updated DateTime 3 172.72 cm 22.2 kg/m2 44388.4 9 g 97.8 [degF] 94 /min 98 % 98 % 16 /min 122/74 mm[Hg] Layne Hartman RN [facility] [employer] [facility] 3 11:38:13 Date Recorded Body height Body mass index (BMI) Body weight Body temperature Heart rate Respiratory rate Systolic And Diastolic Provider Name and Address Organization Details Last Updated DateTime 3 172.72 cm 22.2 kg/m2 36340.4 9 g 98 [degF] 88 /min 16 /min 120/78 mm[Hg] Layne Hartman RN [facility] [employer] [facility] 3 11:35:17 Date Recorded Body mass index (BMI) Body height Oxygen saturation Oxygen saturation in Arterial blood by Pulse oximetry Heart rate Respiratory rate Body temperature Body weight Systolic And Diastolic Provider Name and Address Organization Details Last Updated DateTime 2 20.2 kg/m2 172.72 cm 99 % 99 % 88 /min 16 /min 98.2 [degF] 70992.1 4 g 118/80 mm[Hg] Not Available [facility] 3 22:23:11 Date Recorded Body mass index (BMI) Body height Oxygen saturation Oxygen saturation in Arterial blood by Pulse oximetry Heart rate Respiratory rate Body temperature Body weight Systolic And Diastolic Provider Name and Address Organization Details Last Updated DateTime 2 22 kg/m2 172.72 cm 99 % 99 % 78 /min 18 /min 98.7 [degF] 87622.8 9 g 120/72 mm[Hg] Not Available [facility] 3 22:23:11 Social History Question Answer Notes LastModified by Organizat ion Details LastModified Time Tobacco Smoking Status Never Smoker Not Available [facility] 07/31/2022 22:22:43 Do You Have An Advance Directive? Yes MIGRATION.[id number] 026 Information not available 07/31/2022 Do You Wear A Helmet When Biking? Yes MIGRATION.4040123 026 Information not available 07/31/2022 What Is Your Level Of Caffeine Consumption? Heavy MIGRATION.4374258 026 Information not available 07/31/2022 In The 14 Days Before Symptom Onset, Have You Had Close Contact With A Laboratory-confirm ed COVID-19 While That Case Was Ill? No MIGRATION.7811148 026 Information not available 07/31/2022 In The 14 Days Before Symptom Onset, Have You Had Close Contact With A Person Who Is Under Investigation For COVID-19 While That Person Was Ill? No MIGRATION.8196318 026 Information not available 07/31/2022 What Type Of Diet Are You Following? REGULAR MIGRATION.9864082 026 Information not available 07/31/2022 What Is The Highest Grade Or Level Of School You Have Completed Or The Highest Degree You Have Received? [id number] MIGRATION.7455198 026 Information not available 07/31/2022 Have There Been Any Changes To Your Family Or Social Situation? No MIGRATION.4186928 026 Information not available 07/31/2022 What Is The Fluoride Status Of Your Home? Unknown MIGRATION.3448432 026 Information not available 07/31/2022 Are There Any Guns Present In Your Home? No MIGRATION.0624190 026 Information not available 07/31/2022 Do You Use Insect Repellent Routinely? Yes MIGRATION.8548641 026 Information not available 07/31/2022 Where Do You Live? [place] MIGRATION .9495280 026 Information not available 07/31/2022 Do You Have A Medical Power Of Pig Furnace Operator? Yes MIGRATION.1575615 026 Information not available 07/31/2022 Have You Ever Been Counseled For Unhealthy Alcohol Use? No MIGRATION.5243958 026 Information not available 07/31/2022 Do You Have Any Pets? Yes MIGRATION.3684161 026 Information not available 07/31/2022 What Is Your Relationship Status? Single MIGRATION.2644236 026 Information not available 07/31/2022 Do You Use Your Seat Belt Or Car Seat Routinely? Yes MIGRATION.0966395 026 Information not available 07/31/2022 Do You Have Smoke And Carbon Monoxide Detectors In Your Home? Yes MIGRATION.9132705 026 Information not available 07/31/2022 Are You Passively Exposed To Smoke? No MIGRATION.9776316 026 Information not available 07/31/2022 Are There Any Smokers In Your House? No MIGRATION.4811932 026 Information not available 07/31/2022 Do You Participate In Social Media? Yes MIGRATION.3505012 026 Information not available 07/31/2022 Do You Use Sunscreen Routinely? Yes MIGRATION.5748095 026 Information not available 07/31/2022 Has Tobacco Cessation Counseling Been Provided? Yes MIGRATION.4696490 026 Information not available 07/31/2022 Have You Recently Traveled Abroad? No MIGRATION.6958176 026 Information not available 07/31/2022 Are You Currently In School? Yes MIGRATION.5692309 026 Information not available 07/31/2022 Do You Have Any Dietary Restrictions? No MIGRATION.2453488 026 Information not available 07/31/2022 How Many Years Have You Used E-cigarettes Or Vape? 5 MIGRATION.6244845 026 Information not available 07/31/2022 Sex: Female Functional Status Question Answer Note LastModified by [employer] Details LastModified Time Do you use any illicit or recreational drugs? No MIGRATION.511126 6123 Information not available 07/31/2022 Do you or have you ever used any other forms of tobacco or nicotine? Yes MIGRATION.146192 1948 Information not available 07/31/2022 What is your level of alcohol consumption? Occasional MIGRATION.524793 6272 Information not available 07/31/2022 Do you or have you ever used smokeless tobacco? 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 Current user of electronic cigarettes MIGRATION.814399 3677 Information not available 07/31/2022 What is your exercise level? Heavy MIGRATION.828740 4567 Information not available 07/31/2022 Mental Status Question Answer Note LastModified by [employer] Details LastModified Time Do you feel stressed (tense, restless, nervous, or anxious, or unable to sleep at night)? IX36348-5 MIGRATION.024595271 6 Information not available 07/31/2022 Family History Relationship Description Onset Age of this Age Resolved Age Notes LastModified by Organization Details LastModified Time Paternal Grandmother Family history of malignant neoplasm MIGRATION.414 [id number] Not available 07/31/2022 22:23:01 Maternal Grandmother Family history of malignant neoplasm MIGRATION.419 [id number] Not available 07/31/2022 22:23:01 Medical History Condition Response BLINDNESS N RHEUMATIC FEVER N KIDNEY STONES N BLADDER PROBLEMS N MRSA N OTHER # 1 N POLIO N LUNG DISEASE/DISORDER N HISTORY OF DRUG ABUSE N RADIATION / CHEMOTHERAPY N COPD N Other # 2 N BLOOD DISEASES N SURGERY N EAR OR HEARING PROBLEMS N MUMPS N SHINGLES N FEMALE PROBLEMS / INFECTIONS N DEPRESSION (INCLUDING POST ) N BOWEL PROBLEMS N STROKE/TIA N THYROID DISEASE N ULCERS N BENIGN PROSTATIC HYPERPLASIA N MEASLES N CERVICALGIA N TB SKIN TEST N HYPOTENSION N MYOCARDIAL INFARCTION N PARAPELGIA N OBESITY [...] GLAUCOMA N FOOT PROBLEM N DIVERTICULITIS N SLEEP APNEA N CHICKENPOX N ALLERGIES/HAYFEVER N INFECTIOUS DISEASE N PROSTATE N HEART ARRHYTHMIA N INSOMNIA N HIGH CHOLESTEROL / HYPERLIPIDEMIA N EYE PROBLEMS N HYPERTHYROIDISM N EATING DISORDER N EDEMA N CHRONIC PAIN SYNDROME N CAROTID BLOCKAGE N CONSTIPATION N BACK / NECK PROBLEMS N HAVE YOU BEEN HOSPITALIZED OR SEEN IN [facility] IN THE PAST YEAR ? N ATHEROSCLEROSIS [...] DISORDER N ALZHEIMER'S DISEASE N PAIN N DEMENTIA N HERPES N SEIZURES/EPILEPSY N HEADACHES/MIGRAINES N VASCULAR DISEASE N PACEMAKER N DIZZINESS N HEART DISEASE/HEART PROBLEMS N KIDNEY DISEASE N SCARLET FEVER N MULTIPLE SCLEROSIS N DEVELOPMENTAL OR BEHAVIORAL DISORDERS N MENTAL DISORDER/ILLNESS N CANCER: SPECIFY N CARDIAC ARRHYTHMIA N PNEUMONIA N ATRIAL FIBRILLATION N Gall [...] virus, quadrivalent, PF 02/27/2022 completed Not Available [facility] 3 22:24:11 Influenza, split virus, quadrivalent, PF 04/03/2020 completed Not Available [facility] 3 22:24:11 Past Encounters Encounter ID Performer Location Encounter Start Date Encounter Closed Date Diagnosis/Indication Diagnosis SNOMED-CT Code Diagnosis ICD10 Code Diagnosis Note [id number] Socrates Burgess MD [address] [address] 08/29/2021 00:00:00 08/29/2021 12:28:19 [id number] Socrates Burgess MD [address] [address] 10/03/2021 00:00:00 10/03/2021 12:30:12 [id number] Socrates Burgess MD [address] [address] 11/01/2021 00:00:00 11/01/2021 09:21:46 [id number] Socrates Burgess MD [address] [address] 02/27/2022 00:00:00 02/27/2022 16:07:51 [id number] Ericka Chester NP [facility] [address] [place] [address] 09/24/2021 00:00:00 09/24/2021 17:15:40 [id number] Ericka Chester NP [facility] [address] [address] 10/22/2021 00:00:00 10/22/2021 11:13:27 [id number] Ericka Chester NP [facility] [address] [address] 11/19/2021 00:00:00 11/19/2021 10:55:01 [id number] Ericka Chester NP [facility] [address] [address] 01/15/2022 00:00:00 01/15/2022 11:28:16 [id number] Ericka Chester NP [facility] [address] [address] 1 02/28/2022 00:00:00 02/28/2022 18:37:43 [id number] Ericka Chester NP [facility] [address] [address] 05/01/2022 00:00:00 05/01/2022 11:51:17 [id number] Ericka Chester NP [facility] [address] [address] 08/20/2022 12:08:09 08/20/2022 15:30:41 [id number] Socrates Burgess MD [address] [address] 09/10/2022 11:30:50 09/10/2022 11:50:41 Adult health examination 809933380 Z00.00 Vaping 512615364 Z77.29 Bipolar disorder 3175134 4 F31.9 Screening for disorder 795109824 Z13.9 [id number] Socrates Burgess MD [facility] [address] [address] 09/24/2022 10:25:36 09/24/2022 10:44:25 [id number] Socrates Burgess MD [facility]_[address] [address] 10/01/2022 11:26:57 10/01/2022 11:42:24 Vaping 453277164 Z77.29 Bipolar disorder 4735709 4 F31.9 History of anxiety state 772518990 F41.9 [id number] Ericka Chester NP [facility] [address] [facility], [facility] [address] [place] [address] 11/28/2022 10:57:12 11/28/2022 12:26:12 [id number] Ericka Chester NP [facility] [address] [address] 03/06/2023 15:57:06 03/06/2023 17:41:01 Health Concerns Section Related Observation LastModified by Organization Detai ls LastModified Time None Recorded Concern Status LastModified by Organization Details LastModified Time None Recorded Advance Directives Directive Y: Payers Insurance Date Sequence Insurance Name Policy Number Policy Malcolm Covered Member ID Malcolm Member ID Guarantor Name 07/24/2024 1 [employer] (MEDICAID REPLACEMENT - HMO) [id number] Tati Hong [id number] Tati Hong Notes Date Note Type [...] her BF and 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 PMH, FH and SH reviewed. Socrates Burgess MD [address] [facility], [address], [place], [address], [place] [facility] [employer] 09/10/2022 11:49:42 10/01/2022 text/html Pt is here for f/u on her annual labs. Doing overall well. Denies any concerns.Pt is f/u with Psych for her mood and she is on Seroquel by them and is doing much better now. 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 Socrates Burgess MD [address] [place] [address], [facility] [address], [place], [address], [place] [employer] 10/01/2022 11:40:37 OBGyn Episode No OBEpisode recorded.
--- OUTSIDE RECORDS SUMMARY | 2024-12-14 12:31 | XMS_ITS | Clinical Summary ---
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
--- OUTSIDE RECORDS SUMMARY | 2024-12-14 12:31 | XMS_ITS | Data Portability ---
Author Organization [employer] , [facility] Address [address] [place] [address] Assessment Encounter Date Assessment Date Assessment LastModified [...] d. Lab prolact in, serum 2022 023 [facility], [address] [place], [address], 3 14:22:40 TSH, serum, reflex free T4 2022 023 [facility], [address] [place] [address], [address], 3 13:07:04 pregnan cy test, urine 2022 023 [facility], [address] [place], [address], 3 14:19:52 Referral None recorde d. Procedures None recorde d. Surgeries None recorde d. Imaging US, breast - mastalg ia and lumpy breast bilater al, on OCPs, fam Hx of Breast [place] [address] (Imaging), [address], [place], [address], 3 14:24:19 Medication Orders None recorde d. [...] prola ctin ninoska ntrat ions. [place], [address], 09/04/2022 14:22:40 09/06/19 23 09/05/2022 T4, FREE T4, free 0.98 NG/dL 0.89 - 1.76 normal [place], [address], 09/05/2022 13:07:04 09/06/19 23 09/04/2022 TSH W/ REFLE X TSH 0.49 mIU/L 0.55 - 4.78 low Refer ence Range Femal e aged 18-Ad ult: 0.55- 4.78 Pregn delia Refer ence Range s First Trime ster 0.26- 2.66 Secon d Trime ster 0.55- 2.73 Third Trime ster 0.43- 2.91 [place], [address], 09/05/2022 13:07:04 09/03/19 23 09/02/2022 pregn delia test, urine HCG negati ve Not Available [facility] [address] [place], [address], 09/02/2022 17:07:06 Result Notes None recorded. Medical [...] Updated DateTime 09/02/2022 167.64 cm 23.4 kg/m2 31151.61 g 98.4 [degF] Linda Martinez [employer] IV 09/02/2022 16:17:24 Social History Question Answer Notes LastModified by Organizat ion Details LastModified Time Tobacco Smoking Status Never Smoker Linda lyons, [employer] IV 09/02/2022 16:03:06 How Many Years Have You Consumed Alcohol? 4 [email or web address] Information not available 09/02/2022 What Type Of Diet Are You Following? REGULAR [email or web address] Information not available 09/02/2022 Which Illicit Or Recreational Drugs Have You Used? Marijuana [email or web address] Information not available 09/02/2022 What Is Your Relationship Status? Single [email or web address] Information not available 09/02/2022 Are You Sexually Active? Yes [id number] Information not available 09/02/2022 Sex: Unknown Functional Status Question Answer Note LastModified by Organizat ion Details LastModified Time What is your level of alcohol consumption? Occasional [id number] Information not available 09/02/2022 Do you or have you ever used e-cigarettes or vape? Current user of electronic cigarettes [email or web address] Information not available 09/02/2022 What is your exercise level? Moderate [id number] Information not available 09/02/2022 Mental Status None recorded. Family History Relationship Description Onset Age of this Age Resolved Age Notes LastModified by Organization Details LastModified Time Father Myocardial infarction [email or web address] Not available 0 09/02/2022 16:02:53 Maternal Grandfather Malignant neoplasm of lung [email or web address] Not available 16:02:54 Paternal Grandmother Malignant tumor of breast [email or web address] Not available 16:02:54 Paternal Grandmother Malignant neoplastic disease [email or web address] Not available 16:02:54 Medical History Condition Response [...] SNOMED-CT Code Diagnosis ICD10 Code Diagnosis Note [id number] JAYDEN GALAVIZ MD [facility] h [address] [facility] [place] [address] 09/02/2022 15:47:46 09/03/2022 16:30:26 Pain of right breast 9336036747 N64.4 Health Concerns Section Related Observation LastModified by Organization Detai ls LastModified Time None Recorded Concern Status LastModified by Organization Details LastModified Time None Recorded Advance Directives Directive None Recorded Payers Insurance Date Sequence Insurance Name Policy Number Policy Malcolm Covered Member ID Malcolm Member ID Guarantor Name 04/18/2023 1 [place] Tati Hong [id number] Tati Hong 01/13/2024 1 [facility] (MEDICAID REPLACEMENT - HMO) [id number] Tati Hong [id number] Tati Hong Notes Date Note Type Note Provider Name and Address Organization Details Recorded Time 09/02/2022 text/html Pt presents as new patient. Pt is here for breast lumps that is tender and painful on her right breast. Pt primary care doctor Aditya in [place], [place]. Pt signed medical release form today to establish care with us. On Seroquel for BPD x 1 yearOn Blisovi 06/21- on continuous OCPs since 1.5 years ago.No barriers.LMP 07/2021. JAYDEN LAMA MD [address] [facility], [place], [address], [facility] IV 12/02/2022 14:20:05 OBGyn Episode No OBEpisode recorded.
--- NOTE | 2024-12-14 12:47 | PM.OBTRLD ---
OB - Triage/Final Diagnosis Visit Information Date of evaluation: 12/14/24 Reason for evaluation: threatened labor Comments/Additional reasons for admission: I have assessed the risk for this patient, Tati Hong, and determined that she would benefit from observation care.
[2024-12-14 13:01] VITALS: BP 113/73; PULSE 97
[2024-12-14 13:29] LABS: OBXCEM ROM Plus Negative (Negative)
== END 2024-12-14 13:19 | disposition home or self-care (01) ==
LOC: ANHOBOP 12:28 → ANHOBPP 12:30
PROVIDERS: PCP Family Medicine; Visit Provider Obstetrics & Gynecology
DX: O42.90 Premature rupture of membranes, unspecified as to length of time between rupture and onset of labor, unspecified weeks of gestation (principal); Z3A.00 Weeks of gestation of pregnancy not specified
CPT/HCPCS: 59025; 84112; 99199

== ENCOUNTER 2024-12-29 20:57 | Outpatient (CLI) | payer SELFPAY ==
--- OUTSIDE RECORDS SUMMARY | 2024-12-29 21:56 | XMS_ITS | Clinical Summary ---
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 Gender Identity Not on file Sexual Orientation Not on file Plan of Treatment Health Maintenance Due Date Last Done Comments Cervical Cancer Screening 1998 Depression Screening 1998 Hepatitis C Screening 1998 Regular Well Visit/Exam 18-64 2016 HPV Vaccines (2 - 3-dose series) 11/05/2021 10/08/2021 Covid-19 Vaccine ( season) 2024 06/18/2021, 09/24/2020, 09/02/2020 Influenza Vaccine (#1) 2025 2, 06/18/2021, 04/03/2020 DTaP/Tdap/Td Vaccine (7 - Td or Tdap) 10/09/2031 10/08/2021, 12/20/2003, 03/12/2000, Additional history exists Hepatitis B Screening Completed 07/31/1999 , 07/31/1999, 1998, Additional history exists Varicella Vaccines Completed 10/08/2021, 07/31/1999 Pneumococcal vaccine <65 Aged Out No longer eligible based on patient's age to complete this topic Care Teams Director Of Field Service Relationship Specialty Start Date End Date Socrates Burgess MD [address] [place] [address] PCP - General Family Medicine 10/01/22
--- OUTSIDE RECORDS SUMMARY | 2024-12-29 21:56 | XMS_ITS | Referral Summary ---
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
[2024-12-29 22:01] VITALS: BP 105/61; PULSE 78
[2024-12-29] MEDS: FLUCONAZOLE 150 MG TABLET PO (22:16)
--- NOTE | 2024-12-29 22:20 | PC.NURSE ---
Pt discharged home undelivered in stable condition per order from Dr. Breann Espinal. Discharge instructions discussed, pt stated understanding, all questions and concerns answered. Pt ambulated out of department with all belongings.
== END 2024-12-29 22:20 | disposition home or self-care (01) ==
LOC: ANHOBOP 21:54 → ANHLDR 22:02
PROVIDERS: PCP Family Medicine; Visit Provider Obstetrics & Gynecology
DX: O41.8X90 Other specified disorders of amniotic fluid and membranes, unspecified trimester, not applicable or unspecified (principal); Z3A.00 Weeks of gestation of pregnancy not specified
CPT/HCPCS: 99199; A9270

== ENCOUNTER 2025-01-01 16:46 | Inpatient (IN) | payer BC, SELFPAY ==
[2025-01-01] VITALS (94 sets, daily range): BP systolic 107–150; BP diastolic 58–109; PULSE 75–117; TEMP 37.5–38.1; O2SAT 94–100; BMI 27.1
--- OUTSIDE RECORDS SUMMARY | 2025-01-01 16:54 | XMS_ITS | Clinical Summary ---
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
--- OUTSIDE RECORDS SUMMARY | 2025-01-01 16:54 | XMS_ITS | Referral Summary ---
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
[2025-01-01 17:22] LABS: Hematocrit 33.4 % (37.0-47.0); Hemoglobin 11.3 g/dL (12.0-15.0); Immature Granulocyte Percent A 0.4 % (0-0.5); Lymphocytes Absolute Auto 1.66 K/mm3 (0.9-3.2); Mean Corpuscular HGB Conc 33.8 g/dl (32-36); Mean Corpuscular Hemoglobin 32.4 pg (26-34); Mean Corpuscular Volume 95.7 fl (80-100); Nucleated Red Blood Cells Absolute Auto 0.000 K/mm3 (0.0-0.012); Nucleated Red Blood Cells Perc 0.0 % (0.0-0.2); Platelet Count Result 229 k/mm3 (150-375); Red Blood Count 3.49 M/mm3 (4.2-5.4); White Blood Count 13.4 K/mm3 (4.5-10.0)
--- NOTE | 2025-01-01 17:25 | P.PNAN_ITS ---
Anes - Eval Pre Procedure Procedure: labor epidural Date/Time: 01/01/25 17:25 Surgeon: rubén Preop Diagnosis: pain during labor Pre Op Diagnosis: Leaking Fluid Patient Data Age: 24 Gender: F Height: 1.73 m Weight: 81 kg Last Vital Signs Temp 38.1 C H 01/01/25 17:05 Allergies Allergy/AdvReac Type Severity Reaction Status Date / Time No Known Allergies Allergy Verified 01/01/25 17:23 Home Medications ?Medication ?Instructions ?Recorded ?Confirmed ?Type quetiapine 100 mg tablet 100 mg PO HS 04/19/22 12/29/24 History vit no.95-ferrous 1 tablet PO DAILY 12/29/24 12/29/24 History fumarate 28 mg-folic acid 800 mcg tablet () Laboratory Tests 01/01/25 17:04 WBC Pending RBC Pending Hgb Pending Hct Pending MCV Pending MCH Pending MCHC Pending RDW Pending Plt Count Pending MPV Pending Immature Gran % (Auto) Pending Neut % (Auto) Pending Lymph % (Auto) Pending [place] % (Auto) Pending Eos % (Auto) Pending Baso % (Auto) Pending Lymph # (Auto) Pending [place] # (Auto) Pending Eos # (Auto) Pending Baso # (Auto) Pending Abs Immat Gran (auto) Pending Absolute Neuts (auto) Pending Absolute Nucleated RBC Pending Nucleated RBC % Pending Patient hx anesthesia problems: none Family hx anesthesia problems: none Results Review: All pre-operative results and documents have been reviewed as part of the pre- operative evaluation. [facility] Past Medical History Medical History Bipolar disorder Patient denies medical problems Surgical History Surgical History Hx of tonsillectomy Family History Family History (Updated 12/29/24 @ 11:14 by Dariana Wu RN) Grandparent Colon cancer Sibling Bipolar 1 disorder Social History Social History Smoking status: Current every day smoker Tobacco type: e-cigarettes/vaping Alcohol intake: current Drinks per week: 2 Substance use: never Substance use type: marijuana Other substance usage details: daily Last use: going to stop this month Do You Feel Safe in your Home?: Yes Lack of Transportation: No Lack of Food: Never True Current Housing: I Have Housing Concerned About Future Housing: No Difficulty Paying Gas/Electric Bills: No Difficulty Paying for Meds: No Currently Unemployed: No Education: Associate Degree Difficulty w/ Childcare or Family Care: No Living arrangements: alone Additional living arrangements comments: single Occupation/Education: occupation 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
[2025-01-01] MEDS: ACETAMINOPHEN 500 MG TABLET 1000 MG PO (17:38)
[2025-01-01] MEDS: LACTATED RINGERS 1,000 ML 125 ML IV CONT (17:38)
[2025-01-01] MEDS: AMPICILLIN SODIUM 2 GM in SODIUM CHLORIDE 0.9% IV 100 ML 200 ML IVPB (17:40)
[2025-01-01] MEDS: OXYTOCIN 30 UNITS/NS 500 ML 30 UNITS/500 ML BAG IV CONT (17:42)
--- NOTE | 2025-01-01 17:45 | LDADM ---
This patient, Tati Hong, was admitted to Labor/Delivery/Recovery 106 on 01/01/25 at 16:46. Plans for labor, pain management and were discussed with patient. Patient/family oriented to hospital policies and general routines including ID bracelet, bed and alarms, visiting hours, pain management, procedures, bathroom and other care routines, personal items, smoking policy, room service/diet and guest tray routines, infant security routines, and visiting hours. Patient/Family are encouraged to report perceived risks to care and to ask questions if they do not understand what they are told or what they should do. See OBIX for further documentation.
[2025-01-01 18:13] LABS: Syphilis IgG/IgM Antibody Non-Reactive (Nonreactive)
[2025-01-01] MEDS: GENTAMICIN SULFATE INJ 405 MG in DEXTROSE 5% 100 ML 100 MG IVPB (18:17)
--- NOTE | 2025-01-01 22:30 | S_PTH ---
PATIENT: Tati Hong LOC: ANHOB2 U#:[id number] AGE/SX: 24/F ROOM: 290 RE01/01/[address]: Collin Espinal MD : 2000 BED: 00 DIS: 01/03/2025 SPEC #: [id number] RECD: 01/03/25 10:48 STATUS: SEJAL REQ #: [id number] JAIME: 01/01/25 22:[address]: Shanna Goldstein DEPT: [facility] Surgical RECD BY: Jacki Stephens ENTERED: 01/03/25 10:49 SP TYPE: Surgical OTHR DR: Collin Espinal MD Socrates Aditya, Tissues: A - Placenta Procedures: Hematoxylin and Eosin Stain Gross and Microscopic Level 5
--- NOTE | 2025-01-01 22:42 | WPDOBADMIT ---
Obstetrics - Admit Note Admission Note: record reviewed. No pertinent additions to the history and/or any subsequent changes in the physical findings that are not consistent with the expected course of the were found. Additions to the history and/or subsequent changes in the physical findings follow. Here with SROM in early labor. Had temp 100.6 with no other symptoms. Started amp and gent and given tylenol x 1. Temp dropped to 99. C/P on my arrival
--- NOTE | 2025-01-01 22:43 | P.PCNOB_ITS ---
OB - Vaginal Delivery Note Procedure Delivery date: 01/01/25 Events: Other (SROM; febrile) Induction method: None Delivery augmentation: Pitocin Delivery monitor: External FHT and External Uterine Route of delivery: Episiotomy description: None Laceration Description: Perineal - 1st Degree Delivery repair: vicryl (3-0) Specimen: Yes (placenta) Quantitative Blood Loss (ml): 100 Anesthesia type: Epidural Disposition: Floor Complications: No immediate complications [place] Baby Date of : 01/01/25 Gestational Age by Date: 38 gender: Female presentation: vertex position: Right Occiput Anterior Placenta delivery description: Spontaneous Cord Vessel Description: 3 Vessels and Delayed Cord Clamping score one minute: 9 score five minutes: 9
--- NOTE | 2025-01-01 22:46 | PM.OBDSVD ---
DS: Admitting Diagnosis Discharge Date 01/03/2025 <Collin Espinal MD - Last Filed: 01/03/25 06:56> Admitting Diagnosis IUP 36 with SROM in early labor <Shanna Goldstein MD - Last Filed: 01/01/25 22:47> DS: Discharge Diagnosis Discharge Diagnosis (1) (normal spontaneous vaginal delivery): Code(s): O80 - Encounter for full-term uncomplicated delivery <Shanna Goldstein MD - Last Filed: 01/01/25 22:47> Status: Acute <Shanna Goldstein MD - Last Filed: 01/01/25 22:47> OB - DS: Summary Hospital Course Hospital Course: The patient was admitted underwent spontaneous vaginal delivery on 01/01/2025 hospital course unremarkable. She remained afebrile. She was up, voiding without difficulty, eating regular diet, ambulating, generally without complaints. <Shanna Goldstein MD - Last Filed: 01/01/25 22:47> OB Procedures : Ultrasound <Shanna Goldstein MD - Last Filed: 01/01/25 22:47> OB Procedures Intrapartum: Spontaneous Vag Delivery <Shanna Goldstein MD - Last Filed: 01/01/25 22:47> OB Procedures: : None <Shanna Goldstein MD - Last Filed: 01/01/25 22:47> Peripartum Data Infant Delivery Method: Natural Vaginal <Shanna Goldstein MD - Last Filed: 01/01/25 22:47> Laceration Description: Perineal - 1st Degree <Shanna Goldstein MD - Last Filed: 01/01/25 22:47> Episiotomy description: None <Shanna Goldstein MD - Last Filed: 01/01/25 22:47> complications: none <Shanna Goldstein MD - Last Filed: 01/01/25 22:47> Status at Discharge Functional status at discharge: independent ambulation <Shanna Goldstein MD - Last Filed: 01/01/25 22:47> Overall status at discharge: patient is progressing back to baseline <Shanna Goldstein MD - Last Filed: 01/01/25 22:47> Time Spent with Patient Time attestation: Total time spent providing and/or coordinating discharge services: <Shanna Goldstein MD - Last Filed: 01/01/25 22:47> Exam : Bimanual exam- vagina & uterus: other (Uterus firm, nt @U) <Collin Espinal MD - Last Filed: 01/03/25 06:56> DS: Data Data Completed and Pending Labs on day of discharge: Labs from last 24 hours 01/01/25 17:04 WBC 13.4 H RBC 3.49 L Hgb 11.3 L Hct 33.4 L MCV 95.7 MCH 32.4 MCHC 33.8 RDW 12.3 Plt Count 229 MPV 11.0 H Immature Gran % (Auto) 0.4 Neut % (Auto) 79.3 H Lymph % (Auto) 12.4 L [place] % (Auto) 7.2 Eos % (Auto) 0.3 Baso % (Auto) 0.4 Lymph # (Auto) 1.66 [place] # (Auto) 1.0 H Eos # (Auto) 0.0 Baso # (Auto) 0.1 Abs Immat Gran (auto) 0.05 H Absolute Neuts (auto) 10.7 H Absolute Nucleated RBC 0.000 Nucleated RBC % 0.0 Syphilis IgG/IgM Ab Non-reactive Blood Type A Positive Antibody Screen Negative <Shanna Goldstein MD - Last Filed: 01/01/25 22:47> Discharge Plan Discharge Attending physician on discharge: Collin Vasques <Shanna Goldstein MD - Last Filed: 01/01/25 22:47> Collin Vasques <Collin Espinal MD - Last Filed: 01/03/25 06:56> Discharging Clinician: Collin Vasques <Shanna Goldstein MD - Last Filed: 01/01/25 22:47> Collin Vasques <Collin Espinal MD - Last Filed: 01/03/25 06:56> Anticipated Discharge Date/Time: 01/03/25 22:46 <Shanna Goldstein MD - Last Filed: 01/01/25 22:47> Patient Disposition: Home <Shanna Goldstein MD - Last Filed: 01/01/25 22:47> Activity: may shower and pelvic rest <Shanna Goldstein MD - Last Filed: 01/01/25 22:47> may shower and pelvic rest <Collin Espinal MD - Last Filed: 01/03/25 06:56> Diet: as tolerated <Shanna Goldstein MD - Last Filed: 01/01/25 22:47> as tolerated <Collin Espinal MD - Last Filed: 01/03/25 06:56> Patient Instructions: Antibiotic Form <Shanna Goldstein MD - Last Filed: 01/01/25 22:47> Patient Language: Tunisian <Shanna Goldstein MD - Last Filed: 01/01/25 22:47> Stand Alone Forms: General Discharge Information <Shanna Goldstein MD - Last Filed: 01/01/25 22:47> Follow-up/Referrals: Collin Vasques MD [Physician] - Call for Appointment <Shanna Goldstein MD - Last Filed: 01/01/25 22:47> Discharge Medications: No Action quetiapine 100 mg tablet 100 mg PO HS PNV no.95-ferrous fumarate-FA [] 28 mg iron- 800 mcg tablet 1 tablet PO DAILY <Shanna Goldstein MD - Last Filed: 01/01/25 22:47> Date of admission: 01/01/25 16:46 <Shanna Goldstein MD - Last Filed: 01/01/25 22:47> Primary Care Provider: Aditya,[facility] <Shanna Goldstein MD - Last Filed: 01/01/25 22:47> Admitting Provider: Collin Vasques <Shanna Goldstein MD - Last Filed: 01/01/25 22:47> Attending physician on admission: Collin Vasques <Shanna Goldstein MD - Last Filed: 01/01/25 22:47> Condition: Stable <Shanna Goldstein MD - Last Filed: 01/01/25 22:47>
[2025-01-01] MEDS: OXYTOCIN 30 UNITS/NS 500 ML 30 UNITS/500 ML BAG 125 UNITS IV CONT (23:05)
[2025-01-02 01:30] VITALS: BP 127/71; PULSE 90; RESP 20; TEMP 37.4; O2SAT 98
[2025-01-02 04:03] VITALS: BP 122/73; PULSE 84; RESP 20; TEMP 37.1; O2SAT 97
[2025-01-02 04:29] LABS: Hematocrit 30.9 % (37.0-47.0); Hemoglobin 10.4 g/dL (12.0-15.0)
[2025-01-02 08:15] VITALS: BP 119/82; PULSE 78; RESP 16; TEMP 36.7; O2SAT 100
--- NOTE | 2025-01-02 08:18 | PM.OBPNVD ---
OB - PN: Subj Subjective Date/time seen: 01/02/25 08:18 Patient comments: no complaints and pain well controlled baby status: doing well OB - PN: Obj Data Labs 01/02/25 03:53 Labs: Laboratory Results - last 24 hr 01/01/25 01/02/25 17:04 03:53 WBC 13.4 H RBC 3.49 L Hgb 11.3 L 10.4 L Hct 33.4 L 30.9 L MCV 95.7 MCH 32.4 MCHC 33.8 RDW 12.3 Plt Count 229 MPV 11.0 H Immature Gran % (Auto) 0.4 Neut % (Auto) 79.3 H Lymph % (Auto) 12.4 L [place] % (Auto) 7.2 Eos % (Auto) 0.3 Baso % (Auto) 0.4 Lymph # (Auto) 1.66 [place] # (Auto) 1.0 H Eos # (Auto) 0.0 Baso # (Auto) 0.1 Abs Immat Gran (auto) 0.05 H Absolute Neuts (auto) 10.7 H Absolute Nucleated RBC 0.000 Nucleated RBC % 0.0 Syphilis IgG/IgM Ab Non-reactive Blood Type A Positive Antibody Screen Negative OB - PN A/P Plan day: 1 Plan: routine care Comments: Afebrile since shortly after admission. No signs or symptoms of infection. Time Spent With Patient Time: Total time spent is greater than 50% in coordination of care (as documented) at patient's floor/unit and/or counseling patient: Exam : Bimanual exam- vagina & uterus: other (Uterus firm, nt @U)
[2025-01-02] MEDS: MULTIVIT/MIN/PREN/FOL AC/IRON TABLET 1 TAB PO (08:19)
[2025-01-02] MEDS: IBUPROFEN 600 MG TABLET PO (08:19)
[2025-01-02] MEDS: DOCUSATE SODIUM 100 MG CAPSULE PO ×2 (08:19→17:05)
[2025-01-02 13:30] VITALS: BP 127/84; PULSE 79; RESP 16; TEMP 36.6; O2SAT 99
[2025-01-02 19:46] VITALS: BP 125/78; PULSE 87; RESP 18; TEMP 36.9; O2SAT 99
--- NOTE | 2025-01-03 06:53 | P.PNOB_ITS ---
OB - PN: Subj Subjective Date/time seen: 01/03/25 06:53 Patient comments: no complaints, pain well controlled and tolerating diet [place] baby status: doing well OB - PN: Obj Data Labs 01/02/25 03:53 OB - PN A/P Assessment and Plan (1) (normal spontaneous vaginal delivery): Code(s): O80 - Encounter for full-term uncomplicated delivery Status: Acute Plan home. fu 5 weeks Time Spent With Patient Time: Total time spent is greater than 50% in coordination of care (as documented) at patient's floor/unit and/or counseling patient: Review of Systems 2 Review of Systems: CONSTITUTIONAL: Denies body aches, fever, chills, or sweats. CARDIOVASCULAR: Denies chest pain, palpitations, or edema. RESPIRATORY: Denies cough or dyspnea. SKIN: per HPI MUSCULOSKELETAL: Denies back pain, joint pain, or myalgia. NEUROLOGIC: Denies headache, numbness, tingling, or weakness. Exam 2 : Bimanual exam- vagina & uterus: other (Uterus firm, nt @U)
[2025-01-03 08:05] VITALS: BP 122/84; PULSE 82; RESP 18; TEMP 36.4; O2SAT 100
[2025-01-03] MEDS: TETANUS,DIPHTHERIA,AC PERTUSSIS ADULT (0.5 ML) BOOSTRIX IM (09:01)
[2025-01-03] MEDS: MULTIVIT/MIN/PREN/FOL AC/IRON TABLET 1 TAB PO (09:01)
--- NOTE | 2025-01-03 11:35 | PC.NURSE ---
Reviewed standard discharge information with patient including monitoring for required output, transition of stools, feeding 8-12 times every 24 hours, milk production, and follow up at [facility] and with developmental services worker in the first week of life. If mom chooses to supplement with formula she is encouraged to breastfeed first or to pump. She has a breast pump through insurance coming to her house and has a hand pump to use if needed. She feels that baby is latching well and cluster feeding. Offered outpatient resources with Services at [facility]. Patient has the Mom/Baby Guide for further education and reference for common concerns, phone numbers, and guidance on when to call the doctor. A feeding plan was added to the ?s discharge plan. Patient states that she has no further questions or concerns regarding .?
[2025-01-05 08:15] VITALS: BP 123/84; PULSE 78; RESP 18; TEMP 36.9; O2SAT 100
== END 2025-01-03 12:14 | disposition home or self-care (01) | DRG 807 ==
LOC: ANHLDR 01-02 00:56 → ANHOB2 01-02 01:00
PROVIDERS: Admitting Provider Obstetrics & Gynecology Gynecology; PCP Family Medicine; Visit Provider Obstetrics & Gynecology
DX: O75.2 Pyrexia during labor, not elsewhere classified (principal); Z37.0 Single live birth; Z3A.38 38 weeks gestation of pregnancy; O70.0 First degree perineal laceration during delivery
CPT/HCPCS: 36415; 85014; 85018; 85025; 86593; 86850; 86900; 86901; 88307; 90715; A9270; J0290; J1580; J2590; J2795; J7120